=== PATIENT | female | born 1945 | race Caucasian/White ===

== ENCOUNTER → 2017-08-29 | Outpatient (CLI) | payer MEDICARE ==
--- NOTE | 2017-09-02 11:33 | MM ---
Reason for exam: screening (asymptomatic). Last mammogram was performed 2 years and 5 months ago. History: Patient is postmenopausal and has history of other cancer at age 65. Taking estrogen for 23 years 6 months beginning at age 42. Physical Findings: A clinical breast exam by your physician is recommended on an annual basis and results should be correlated with mammographic findings. MG 3D Screening Mammo W/Cad Bilateral CC and MLO view(s) were taken. Prior study comparison: March 29, 2015, bilateral MG screening mammo w CAD. March 17, 2014, bilateral MG screening mammo w CAD. There are scattered fibroglandular densities. No significant changes when compared with prior studies. ASSESSMENT: Negative, BI-RAD 1 RECOMMENDATION: Routine screening mammogram of both breasts in 1 year.
== END | disposition home or self-care (01) ==
LOC: RADMAMWWP 09:57
PROVIDERS: ATTEND Family Medicine
DX: Z12.31 Encounter for screening mammogram for malignant neoplasm of breast (principal)
CPT/HCPCS: 77063; 77067

== ENCOUNTER 2017-09-16 20:43 | Emergency (ER) | payer MEDICARE ==
[2017-09-16 21:03] VITALS: RESP 18
[2017-09-16] MEDS ORDERED: cloNIDine HCL 0.2 MG TAB PO STA (21:29)
--- NOTE | 2017-09-16 21:34 | ED ---
General Adult HPI - General Chief complaint: Recheck/Abnormal Lab/Rx Stated complaint: High BP Time Seen by Provider: 09/16/17 21:16 Source: patient Mode of arrival: ambulatory Limitations: no limitations - History of Present Illness Initial comments: This patient is a 72-year-old woman who presents to be evaluated for blood pressure. The patient relates that she had been at [employer] this evening to deal with what sounds like a varicosity on the left leg that started bleeding. She states she is given a lidocaine injection and had some sutures that stop things, but that afterward they found her blood pressure was above 180 mmHg. the patient does note that she has been having hypertension over the past few weeks, and that in fact her primary physician had started her on Hyzaar, and she had taken the first dose of that today. I will questioned about symptoms, she states that she has been having some tightness across her chest over the past few days that she thought may be related to the blood pressure. She denies "chest pain." She is not having dyspnea, diaphoresis, nausea or vomiting , palpitations or syncope. She rates the tightness is mild. She has not noticed anything that seems to make it better or worse. -: days(s) Location: chest Consistency: constant Improves with: none Worsens with: none Associated Symptoms: chest pain Treatments Prior to Arrival: none - Related Data Home Medications Medication Instructions Recorded Confirmed Fluticasone/Salmeterol [Advair Hfa 2 puff INHALATION RT-BID 09/14/13 09/16/17 115-21 Mcg Inhaler] Levothyroxine Sodium [Synthroid] 137 mcg PO QAM 09/14/13 09/16/17 Montelukast [Singulair] 1 tab PO HS 09/14/13 09/16/17 cycloSPORINE [Restasis] 1 drop LEFT EYE BID 09/14/13 09/16/17 Cholecalciferol [Vitamin D3] 1,000 unit PO DAILY 09/16/17 09/16/17 Ciprofloxacin HCl [Cipro] 500 mg PO BID 09/16/17 09/16/17 Diphenox-Atrop 2.5-0.025 mg 2 tab PO TID PRN 09/16/17 09/16/17 [Lomotil] Losartan [Cozaar] 50 mg PO DAILY 09/16/17 09/16/17 Multivitamins, Thera [Multivitamin 1 tab PO DAILY 09/16/17 09/16/17 (formulary)] predniSONE 5 mg PO DAILY 09/16/17 09/16/17 traMADol HCL [Ultram] 50 mg PO Q4HR PRN 09/16/17 09/16/17 Allergies Allergy/AdvReac Type Severity Reaction Status Date / Time acetaminophen [From Vicodin] Allergy Anaphylaxis Verified 09/16/17 21:34 ciprofloxacin [From Cipro] Allergy Unknown Verified 09/16/17 21:34 hydrocodone bitartrate Allergy Anaphylaxis Verified 09/16/17 21:34 [From Vicodin] levofloxacin [From Levaquin] Allergy Unknown Verified 09/16/17 21:34 Review of Systems ROS Statement: Those systems with pertinent positive or pertinent negative responses have been documented in the HPI. ROS Other: All systems not noted in ROS Statement are negative. Constitutional: Denies: fever, chills Respiratory: Denies: cough, dyspnea Cardiovascular: Reports: as per HPI, chest pain. Denies: palpitations, dyspnea on exertion, orthopnea, edema, syncope Gastrointestinal: Denies: abdominal pain, nausea, vomiting Genitourinary: Denies: dysuria Musculoskeletal: Denies: back pain Skin: Denies: rash Neurological: Denies: headache, weakness, numbness Past Medical History Past Medical History: Asthma, COPD, Hyperlipidemia, Hypertension, Osteoarthritis (OA) Additional Past Medical History / Comment(s): HYPOTHYROID History of Any Multi-Drug Resistant Organisms: None Reported Past Surgical History: Appendectomy, Bladder Surgery, Hysterectomy, Orthopedic Surgery, Tonsillectomy Additional Past Surgical History / Comment(s): FACIAL SURGERY/RECONSTRUCTION POST INJURY. BILATERAL CATARACTS Past Anesthesia/Blood Transfusion Reactions: Postoperative Nausea & Vomiting ( PONV) Past Psychological History: No Psychological Hx Reported Smoking Status: Former smoker Past Alcohol Use History: Rare Past Drug Use History: None Reported General Exam Limitations: no limitations General appearance: alert, in no apparent distress Head exam: Present: atraumatic, normocephalic Eye exam: Present: normal appearance. Absent: scleral icterus, conjunctival injection ENT exam: Present: normal oropharynx Neck exam: Present: normal inspection Respiratory exam: Present: normal lung sounds bilaterally. Absent: respiratory distress, wheezes, rales, rhonchi, stridor Cardiovascular Exam: Present: regular rate, normal rhythm, normal heart sounds. Absent: systolic murmur, diastolic murmur, rubs, gallop GI/Abdominal exam: Present: soft. Absent: distended, tenderness, guarding, rebound, rigid Extremities exam: Present: normal inspection, normal capillary refill, other ( Patient has dressing to the lower left leg.). Absent: pedal edema, calf tenderness Back exam: Present: normal inspection Neurological exam: Present: alert Skin exam: Present: warm, dry, intact, normal color. Absent: rash Course Vital Signs 09/16/17 09/16/17 09/16/17 20:58 21:27 22:38 Temperature 97.6 F Pulse Rate 89 79 Respiratory 18 18 Rate Blood Pressure 176/84 229/98 230/96 O2 Sat by Pulse 94 L 98 Oximetry 09/16/17 22:56 Temperature Pulse Rate 70 Respiratory 18 Rate Blood Pressure 134/62 O2 Sat by Pulse 96 Oximetry EKG Findings - EKG Results: EKG: interpreted by ERMD, sinus rhythm (Rate approximately 88 bpm), normal axis , normal QRS, normal ST/T Medical Decision Making - Lab Data Result diagrams: 09/16/17 21:42 09/16/17 21:42 Lab Results 09/16/17 09/16/17 09/16/17 Range/Units 21:42 21:42 21:42 WBC 9.1 (3.8-10.6) k/uL RBC 4.72 (3.80-5.40) m/uL Hgb 14.4 (11.4-16.0) gm/dL Hct 43.6 (34.0-46.0) % MCV 92.2 (80.0-100.0) fL MCH 30.5 (25.0-35.0) pg MCHC 33.1 (31.0-37.0) g/dL RDW 13.1 (11.5-15.5) % Plt Count 261 (150-450) k/uL Neutrophils % 62 % Lymphocytes % 27 % Monocytes % 6 % Eosinophils % 5 % Basophils % 1 % Neutrophils # 5.6 (1.3-7.7) k/uL Lymphocytes # 2.4 (1.0-4.8) k/uL Monocytes # 0.5 (0-1.0) k/uL Eosinophils # 0.4 (0-0.7) k/uL Basophils # 0.0 (0-0.2) k/uL Sodium 139 (137-145) mmol/L Potassium 4.5 (3.5-5.1) mmol/L Chloride 100 (98-107) mmol/L Carbon Dioxide 26 (22-30) mmol/L Anion Gap 13 mmol/L BUN 14 (7-17) mg/dL Creatinine 0.45 L (0.52-1.04) mg/dL Est GFR (CKD-EPI)AfAm >90 (>60 ml/min/1.73 sqM) Est GFR (CKD-EPI)NonAf >90 (>60 ml/min/1.73 sqM) Glucose 94 (74-99) mg/dL Calcium 10.0 (8.4-10.2) mg/dL Urine Color Light Yellow Urine Appearance Clear (Clear) Urine pH 5.5 (5.0-8.0) Ur Specific [place] 1.006 (1.001-1.035) Urine Protein Negative (Negative) Urine Glucose (UA) Negative (Negative) Urine Ketones Negative (Negative) Urine Blood Negative (Negative) Urine Nitrite Negative (Negative) Urine Bilirubin Negative (Negative) Urine Urobilinogen <2.0 (<2.0) mg/dL Ur Leukocyte Esterase Negative (Negative) Disposition Clinical Impression: Hypertension Disposition: HOME SELF-CARE Condition: Good Instructions: Chronic Hypertension (ED) Is patient prescribed a controlled substance at d/c from ED?: No Referrals: Rinku Penaloza DO [Primary Care Provider] - 1-2 days
[2017-09-16 22:05] LABS: Appearance,Urine Clear (Clear); Basophils % (A) 1 %; Bilirubin,Urine Negative (Negative); Blood,Urine Negative (Negative); Color,Urine Light Yellow; Eosinophils # (A) 0.4 k/uL (0-0.7); Eosinophils % (A) 5 %; Glucose,Urine (UA) Negative (Negative); HCT 43.6 % (34.0-46.0); HGB 14.4 gm/dL (11.4-16.0); Ketones,Urine Negative (Negative); Leukocyte Esterase,Urine Negative (Negative); Lymphocytes # (A) 2.4 k/uL (1.0-4.8); Lymphocytes % (A) 27 %; MCH 30.5 pg (25.0-35.0); MCHC 33.1 g/dL (31.0-37.0); MCV 92.2 fL (80.0-100.0); Mean Platelet Volume 7.3; Monocytes # (A) 0.5 k/uL (0-1.0); Monocytes % (A) 6 %; Neutrophils # (A) 5.6 k/uL (1.3-7.7); Neutrophils % (A) 62 %; Nitrite,Urine Negative (Negative); PH, Urine 5.5 (5.0-8.0); Platelet Count 261 k/uL (150-450); Protein,Urine Negative (Negative); RBC 4.72 m/uL (3.80-5.40); RDW 13.1 % (11.5-15.5); Specific Gravity,Urine 1.006 (1.001-1.035); Urobilinogen,Urine <2.0 mg/dL (<2.0); WBC 9.1 k/uL (3.8-10.6)
[2017-09-16 22:15] LABS: Anion Gap 13 mmol/L; Blood Urea Nitrogen 14 mg/dL (7-17); Carbon Dioxide 26 mmol/L (22-30); Chloride 100 mmol/L (98-107); Glucose 94 mg/dL (74-99); Potassium 4.5 mmol/L (3.5-5.1); Sodium 139 mmol/L (137-145)
[2017-09-16] MEDS ORDERED: LORazepam 2 MG/ML INJ IV STA (22:29)
[2017-09-16 22:57] VITALS: PULSE 70
[2017-09-16 23:27] VITALS: BP 134/68; TEMP 99
== END 2017-09-16 23:27 | disposition home or self-care (01) ==
LOC: EC 20:43
DX: I10 Essential (primary) hypertension (principal); R07.89 Other chest pain; J44.9 Chronic obstructive pulmonary disease, unspecified; E03.9 Hypothyroidism, unspecified; M19.90 Unspecified osteoarthritis, unspecified site; Z87.891 Personal history of nicotine dependence; Z79.51 Long term (current) use of inhaled steroids; Z79.52 Long term (current) use of systemic steroids; Z79.899 Other long term (current) drug therapy; Z88.1 Allergy status to other antibiotic agents; Z88.5 Allergy status to narcotic agent; Z88.8 Allergy status to other drugs, medicaments and biological substances
CPT/HCPCS: 36415; 93005; 80048; 85025; 81003; 99283; 96374; J2060

== ENCOUNTER → 2018-05-08 | Outpatient (CLI) | payer MEDICARE ==
[2018-05-08 10:41] LABS: HCT 42.4 % (34.0-46.0); HGB 13.4 gm/dL (11.4-16.0); MCH 29.4 pg (25.0-35.0); MCHC 31.5 g/dL (31.0-37.0); MCV 93.1 fL (80.0-100.0); Mean Platelet Volume 6.5; Platelet Count 275 k/uL (150-450); RBC 4.55 m/uL (3.80-5.40); RDW 13.1 % (11.5-15.5); WBC 7.2 k/uL (3.8-10.6)
[2018-05-08 10:48] LABS: Anion Gap 10 mmol/L; Blood Urea Nitrogen 15 mg/dL (7-17); Carbon Dioxide 24 mmol/L (22-30); Chloride 105 mmol/L (98-107); Potassium 4.1 mmol/L (3.5-5.1); Sodium 139 mmol/L (137-145)
== END | disposition home or self-care (01) ==
LOC: LABPAT 10:18
PROVIDERS: ATTEND Internal Medicine Interventional Cardiology
DX: Z01.812 Encounter for preprocedural laboratory examination (principal); R07.9 Chest pain, unspecified; E78.1 Pure hyperglyceridemia; I10 Essential (primary) hypertension
CPT/HCPCS: 80051; 82565; 84520; 85027

== ENCOUNTER 2018-05-15 10:53 | Day surgery (SDC) | payer MEDICARE ==
[2018-05-07 14:35] VITALS: BMI 32.4
[~2018-05-15 10:53] MED LIST: ALPRAZolam 0.25 MG TAB PO PRN; ALPRAZolam 0.5 MG TAB PO PRN; ASPIRIN 325 MG TAB PO STA; ATORVASTATIN 80 MG TAB PO STA; NITROGLYCERIN SL TABS 0.4 MG TAB SUBLINGUAL PRN; SODIUM CHLORIDE 0.9% 1,000 ML in EMPTY BAG 1 BAG IV ONE
[2018-05-15 11:18] VITALS: RESP 18; TEMP 97.7
[2018-05-15] MEDS ORDERED: VERAPAMIL 2.5 MG/ML 2 ML AMP ONE (11:49)
[2018-05-15] MEDS ORDERED: HEPARIN SODIUM 1,000 UN/ML (10ML VL) ONE (11:49)
[2018-05-15] MEDS ORDERED: LIDOCAINE 1% INJ 10MG/ML (20 ML MDV) ONE (11:49)
[2018-05-15] MEDS ORDERED: LIDOCAINE 1% (PF) 10MG/ML VIAL SQ ONE (12:11)
[2018-05-15] MEDS ORDERED: MIDAZOLAM 2 MG/2 ML VIAL IV ONE (12:12)
[2018-05-15] MEDS ORDERED: HEPARIN SODIUM 1,000 UN/ML (10ML VL) IV ONE (12:13)
[2018-05-15] MEDS: VERAPAMIL SYRINGE (5 MG/10 ML) INTRAARTER ONE ×2 (12:13→12:24)
[2018-05-15] MEDS ORDERED: IOPAMIDOL-370 125ML BTL INJ ONE (12:22)
[2018-05-15] MEDS ORDERED: RX INFO: IV CONTRAST WAS GIVEN 1 EACH MISC MISCELLANE PRN (12:29)
[2018-05-15] MEDS ORDERED: SODIUM CHLORIDE 0.9% 1,000 ML IV SCH (12:30)
--- NOTE | 2018-05-15 13:02 | CC ---
CARDIAC CATHETERIZATION REPORT DATE OF SERVICE: PERFORMING PHYSICIAN: Ramses Núñez MD, Supervisor Cereal. PROCEDURE PERFORMED: 1. Selective right and left coronary angiogram. 2. Left heart catheterization. INDICATION: This is a pleasant 73-year-old female patient with hypertension and dyslipidemia who was experiencing chest discomfort and underwent myocardial perfusion imaging stress test and that revealed anterior ischemia. Because of that, heart catheterization was advised. APPROACH: Right radial artery. COMPLICATION: None. LEVEL OF SEDATION: Moderate with sedation length of 15 minutes. PROCEDURE DESCRIPTION: After obtaining an informed consent, the patient was brought to the cardiac pathology laboratory technologist. The right radial artery was cannulated using micropuncture technique and a micropuncture wire passed easily, then I placed a 6-[place]uv[place] sheath in the right radial artery. After that, I did give the patient 2 mg of verapamil IA and 8000 units of heparin IV. Subsequently, I did selective right and left coronary angiogram using JR4 and JL3.5 catheters. The left heart catheterization was performed using 5-[place]uvian pigtail catheter. The procedure was completed without any complication. SELECTIVE CORONARY ANGIOGRAM: 1. The right coronary artery is a large caliber vessel and it is a dominant vessel. The RCA is chronically occluded with a long area of PROFILE SAW SETUP OPERATOR extends from the mid all the way to the distal. The RCA fills by collaterals from the left coronary system. It is heavily calcified as well. 2. The left main is angiographically normal. Distally has mild disease only. It bifurcates into the left circumflex and left anterior descending artery. 3. The left circumflex is a large caliber vessel. It is a nondominant vessel. The proximal circumflex appeared to have mild disease only and gives rise into first OM branch which appeared to have mild disease only. The mid circumflex has mild disease only and gives rise into second OM branch which is small caliber vessel. The circumflex distally appeared to be normal. 4. The LAD, the proximal LAD appeared to have mild disease only. It gives rise into a large diagonal branch which has mild disease only. The mid and distal LAD appears to be angiographically normal. HEMODYNAMICS: The left ventricular pressure was 12 mmHg without significant gradient across the aortic valve. CONCLUSION: 1. Calcified right and left coronary artery systems. 2. 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 3. Mild disease involving the left coronary artery system. Giving the stress test showing anterior ischemia, which is not in the territory of the RCA artery, I did recommend maximized medical treatment and follow up with the patient. The patient is going to be discharged home later on today. TYSON / RACH: [id number] /
--- NOTE | 2018-05-15 13:23 | LTR ---
May 15, 2018 Re: Amy Jose Dear Dr. Penaloza: Ms. Amy Garcia underwent a heart catheterization today and that revealed chronic total occlusion of the right coronary artery. I did recommend maximized medical treatment and follow up with the patient. I want to thank you for allowing us to participate in her care and please do not hesitate to call for question or concern. Sincerely, MD TYSON Marie / RACH: [id number] /
[2018-05-15 14:52] VITALS: BP 122/59; PULSE 79
== END 2018-05-15 16:30 | disposition home or self-care (01) ==
LOC: CATHCVL 10:53
PROVIDERS: ATTEND Internal Medicine Interventional Cardiology
DX: I25.10 Atherosclerotic heart disease of native coronary artery without angina pectoris (principal); I25.84 Coronary atherosclerosis due to calcified coronary lesion; I25.82 Chronic total occlusion of coronary artery; I10 Essential (primary) hypertension; E78.5 Hyperlipidemia, unspecified; Z82.49 Family history of ischemic heart disease and other diseases of the circulatory system; Z72.0 Tobacco use; Z79.82 Long term (current) use of aspirin; Z79.890 Hormone replacement therapy; Z79.899 Other long term (current) drug therapy; Z88.5 Allergy status to narcotic agent
CPT/HCPCS: 93458; C1769; C1894; J2250; J1644; J2001; Q9967

== ENCOUNTER → 2018-05-20 | Outpatient (CLI) | payer MEDICARE ==
[2018-05-20 10:21] LABS: HCT 41.8 % (34.0-46.0); HGB 13.6 gm/dL (11.4-16.0); MCH 30.2 pg (25.0-35.0); MCHC 32.6 g/dL (31.0-37.0); MCV 92.6 fL (80.0-100.0); Mean Platelet Volume 6.4; Platelet Count 277 k/uL (150-450); RBC 4.52 m/uL (3.80-5.40); RDW 13.3 % (11.5-15.5); WBC 7.3 k/uL (3.8-10.6)
[2018-05-20 10:28] LABS: INR 0.9 (<1.2); Prothrombin Time 9.5 sec (9.0-12.0)
[2018-05-20 10:31] LABS: Appearance,Urine Clear (Clear); Bilirubin,Urine Negative (Negative); Blood,Urine Negative (Negative); Color,Urine Colorless; Glucose,Urine (UA) Negative (Negative); Ketones,Urine Negative (Negative); Leukocyte Esterase,Urine Negative (Negative); Nitrite,Urine Negative (Negative); PH, Urine 5.5 (5.0-8.0); Protein,Urine Negative (Negative); Specific Gravity,Urine 1.004 (1.001-1.035); Urobilinogen,Urine <2.0 mg/dL (<2.0)
[2018-05-20 10:50] LABS: ALT 48 U/L (9-52); AST 28 U/L (14-36); Albumin 4.2 g/dL (3.5-5.0); Alkaline Phosphatase 60 U/L (38-126); Anion Gap 9 mmol/L; Blood Urea Nitrogen 15 mg/dL (7-17); Calcium 10.1 mg/dL (8.4-10.2); Carbon Dioxide 29 mmol/L (22-30); Chloride 100 mmol/L (98-107); Glucose 98 mg/dL (74-99); Potassium 4.9 mmol/L (3.5-5.1); Sodium 138 mmol/L (137-145); Total Bilirubin 0.5 mg/dL (0.2-1.3); Total Protein 6.9 g/dL (6.3-8.2)
== END ==
LOC: LABPAT 09:31
PROVIDERS: ATTEND Orthopaedic Surgery
DX: Z01.812 Encounter for preprocedural laboratory examination (principal); Z51.81 Encounter for therapeutic drug level monitoring; Z79.01 Long term (current) use of anticoagulants
CPT/HCPCS: 36415; 80053; 81003; 85027; 85610; 85730; 87070

== ENCOUNTER → 2018-05-26 | Outpatient (CLI) | payer MEDICARE ==
[2018-05-26 11:52] LABS: Basophils # (A) 0.1 k/uL (0-0.2); Basophils % (A) 1 %; Eosinophils # (A) 0.4 k/uL (0-0.7); Eosinophils % (A) 5 %; HCT 45.1 % (34.0-46.0); HGB 14.4 gm/dL (11.4-16.0); Lymphocytes # (A) 1.7 k/uL (1.0-4.8); Lymphocytes % (A) 21 %; MCH 29.6 pg (25.0-35.0); MCHC 31.8 g/dL (31.0-37.0); MCV 93.2 fL (80.0-100.0); Mean Platelet Volume 6.6; Monocytes # (A) 0.3 k/uL (0-1.0); Monocytes % (A) 4 %; Neutrophils # (A) 5.4 k/uL (1.3-7.7); Neutrophils % (A) 68 %; Platelet Count 303 k/uL (150-450); RBC 4.84 m/uL (3.80-5.40); RDW 13.2 % (11.5-15.5)
[2018-05-26 16:38] LABS: Albumin 4.8 g/dL (3.80-4.90); Albumin/Globulin Ratio 2.82 (1.20-2.10); Anion Gap 12.4 mmol/L (4.00-12.00); Calcium 9.7 mg/dL (8.7-10.3); Carbon Dioxide 26.6 mmol/L (21.6-31.8); Globulin 1.7 g/dL (1.6-3.3); Potassium 4.2 mmol/L (3.5-5.5); Total Bilirubin 0.4 mg/dL (0.3-1.2); Total Protein 6.5 g/dL (6.2-8.2)
[2018-05-26 16:49] LABS: Gliadin AB IgA, Unit <0.2 U/mL
== END | disposition home or self-care (01) ==
LOC: LABWHC1 10:48
PROVIDERS: ATTEND Physician Assistant
DX: R19.7 Diarrhea, unspecified (principal)
CPT/HCPCS: 36415; 80053; 83516; 85025

== ENCOUNTER 2018-06-28 11:34 | Observation (INO) | payer MEDICARE ==
[2018-06-28] MEDS ORDERED: ASPIRIN 81 MG PO STA (11:50)
[2018-06-28] MEDS ORDERED: NITROGLYCERIN OINT 1 INCH/GM PACKET TOPICAL STA (11:50)
--- NOTE | 2018-06-28 11:53 | ED ---
General Adult HPI - General Chief complaint: Chest Pain Stated complaint: chest pain Time Seen by Provider: 06/28/18 11:40 Source: patient, RN notes reviewed Mode of arrival: wheelchair Limitations: no limitations - History of Present Illness Initial comments: Patient is a pleasant 73-year-old female presenting to the emergency Department with complaints of chest discomfort. Onset was around 10 this morning. Patient was not exerting herself. Discomfort felt like pressure. Discomfort is now mild. Patient did have some associated dyspnea at that time however that has resolved. No associated nausea or diaphoresis. No history of similar symptoms previously. Patient took 2 nitro glycerin with some improvement of symptoms. No radiation of pain. Patient did have a computed tomography scan showing that there is disease in her coronary arteries. - Related Data Home Medications Medication Instructions Recorded Confirmed Fluticasone/Salmeterol [Advair Hfa 2 puff INHALATION BID 09/14/13 06/28/18 115-21 Mcg Inhaler] Levothyroxine Sodium [Synthroid] 137 mcg PO DAILY 09/14/13 06/28/18 Montelukast [Singulair] 10 mg PO HS 09/14/13 06/28/18 cycloSPORINE [Restasis] 1 drop LEFT EYE BID 09/14/13 06/28/18 Cholecalciferol [Vitamin D3] 1,000 unit PO DAILY 09/16/17 06/28/18 Losartan [Cozaar] 50 mg PO BID 09/16/17 06/28/18 Multivitamins, Thera [Multivitamin 1 tab PO DAILY 09/16/17 06/28/18 (formulary)] ALPRAZolam [Xanax] 0.25 mg PO Q8H PRN 05/07/18 06/28/18 Albuterol Inhaler [Ventolin Hfa 1 - 2 puff INHALATION Q6HR PRN 05/07/18 06/28/18 Inhaler] Aspirin [Adult Low Dose Aspirin EC] 81 mg PO DAILY 05/07/18 06/28/18 Atorvastatin [Lipitor] 10 mg PO HS 05/07/18 06/28/18 Nitroglycerin Sl Tabs [Nitrostat] 0.4 mg SUBLINGUAL Q5M PRN 05/07/18 06/28/18 Dicyclomine [Bentyl] 20 mg PO QID PRN 06/28/18 06/28/18 Isosorbide Mononitrate ER [Imdur] 30 mg PO DAILY 06/28/18 06/28/18 Allergies Allergy/AdvReac Type Severity Reaction Status Date / Time acetaminophen [From Vicodin] Allergy Anaphylaxis Verified 06/28/18 13:01 ciprofloxacin [From Cipro] Allergy Unknown Verified 06/28/18 13:01 hydrocodone bitartrate Allergy Anaphylaxis Verified 06/28/18 13:01 [From Vicodin] levofloxacin [From Levaquin] Allergy Unknown Verified 06/28/18 13:01 Review of Systems ROS Statement: Those systems with pertinent positive or pertinent negative responses have been documented in the HPI. ROS Other: All systems not noted in ROS Statement are negative. Constitutional: Denies: fever Eyes: Denies: eye pain ENT: Denies: ear pain Respiratory: Denies: cough Cardiovascular: Reports: as per HPI, chest pain Endocrine: Denies: fatigue Gastrointestinal: Denies: abdominal pain Genitourinary: Denies: dysuria Musculoskeletal: Denies: back pain Skin: Denies: rash Neurological: Denies: weakness Past Medical History Past Medical History: Asthma, Cancer, Chest Pain / Angina, COPD, Hyperlipidemia , Hypertension, Osteoarthritis (OA), Thyroid Disorder Additional Past Medical History / Comment(s): HYPOTHYROID. Hx skin cancer on nose. IBS. History of Any Multi-Drug Resistant Organisms: None Reported Past Surgical History: Appendectomy, Bladder Surgery, Hysterectomy, Joint Replacement, Orthopedic Surgery, Tonsillectomy Additional Past Surgical History / Comment(s): FACIAL SURGERY/RECONSTRUCTION POST INJURY. BILATERAL CATARACTS. Left shoulder replacement, bilateral shoulder surgery. Skin cancer on nose removed. Past Anesthesia/Blood Transfusion Reactions: Postoperative Nausea & Vomiting ( PONV) Past Psychological History: No Psychological Hx Reported Past Alcohol Use History: Rare - Past Family History Mother Family Medical History: No Reported History General Exam Limitations: no limitations General appearance: alert, in no apparent distress Head exam: Present: atraumatic Eye exam: Present: normal appearance, PERRL ENT exam: Present: normal oropharynx Neck exam: Present: normal inspection Respiratory exam: Present: normal lung sounds bilaterally. Absent: chest wall tenderness Cardiovascular Exam: Present: regular rate, normal rhythm Expanded Peripheral pulses: 2+: Radial (R), Radial (L), Dorsalis Pedis (R), Dorsalis Pedis (L) GI/Abdominal exam: Present: soft. Absent: distended, tenderness Extremities exam: Present: normal inspection. Absent: pedal edema, calf tenderness Neurological exam: Present: alert Psychiatric exam: Present: normal affect, normal mood Skin exam: Present: normal color Course Vital Signs 06/28/18 11:37 Temperature 98.1 F Pulse Rate 88 Respiratory 16 Rate Blood Pressure 205/72 O2 Sat by Pulse 99 Oximetry EKG Findings - EKG Comments: EKG Findings:: Normal sinus rhythm 79. MN 176. QRS 82. QT 392. QTC 449. Normal axis. Normal QRS. No acute ST change. Medical Decision Making - Medical Decision Making Patient reevaluated and resting comfortably in bed. Patient and family updated on results and plan. Patient still has some discomfort. Case was discussed in detail with Dr. russo, covering for Dr. Penaloza, who will admit. - Lab Data Result diagrams: 06/28/18 12:11 06/28/18 12:11 Lab Results 06/28/18 06/28/18 06/28/18 Range/Units 12:11 12:11 12:11 WBC 12.7 H (3.8-10.6) k/uL RBC 4.44 (3.80-5.40) m/uL Hgb 13.6 (11.4-16.0) gm/dL Hct 41.0 (34.0-46.0) % MCV 92.2 (80.0-100.0) fL MCH 30.6 (25.0-35.0) pg MCHC 33.1 (31.0-37.0) g/dL RDW 13.8 (11.5-15.5) % Plt Count 252 (150-450) k/uL Neutrophils % 84 % Lymphocytes % 9 % Monocytes % 3 % Eosinophils % 3 % Basophils % 0 % Neutrophils # 10.7 H (1.3-7.7) k/uL Lymphocytes # 1.2 (1.0-4.8) k/uL Monocytes # 0.4 (0-1.0) k/uL Eosinophils # 0.4 (0-0.7) k/uL Basophils # 0.1 (0-0.2) k/uL PT (9.0-12.0) sec INR (<1.2) APTT (22.0-30.0) sec Sodium 138 (137-145) mmol/L Potassium 4.3 (3.5-5.1) mmol/L Chloride 105 (98-107) mmol/L Carbon Dioxide 25 (22-30) mmol/L Anion Gap 8 mmol/L BUN 20 H (7-17) mg/dL Creatinine 0.61 (0.52-1.04) mg/dL Est GFR (CKD-EPI)AfAm >90 (>60 ml/min/1.73 sqM) Est GFR (CKD-EPI)NonAf >90 (>60 ml/min/1.73 sqM) Glucose 107 H (74-99) mg/dL Calcium 9.5 (8.4-10.2) mg/dL Magnesium 2.0 (1.6-2.3) mg/dL Total Bilirubin 0.5 (0.2-1.3) mg/dL AST 28 (14-36) U/L ALT 54 H (9-52) U/L Alkaline Phosphatase 63 (38-126) U/L Total Creatine Kinase 62 (30-135) U/L CK-MB (CK-2) 2.3 (0.0-2.4) ng/mL CK-MB (CK-2) Rel Index 3.7 Troponin I <0.012 (0.000-0.034) ng/mL Total Protein 6.6 (6.3-8.2) g/dL Albumin 4.0 (3.5-5.0) g/dL 06/28/18 Range/Units 12:11 WBC (3.8-10.6) k/uL RBC (3.80-5.40) m/uL Hgb (11.4-16.0) gm/dL Hct (34.0-46.0) % MCV (80.0-100.0) fL MCH (25.0-35.0) pg MCHC (31.0-37.0) g/dL RDW (11.5-15.5) % Plt Count (150-450) k/uL Neutrophils % % Lymphocytes % % Monocytes % % Eosinophils % % Basophils % % Neutrophils # (1.3-7.7) k/uL Lymphocytes # (1.0-4.8) k/uL Monocytes # (0-1.0) k/uL Eosinophils # (0-0.7) k/uL Basophils # (0-0.2) k/uL PT 10.1 (9.0-12.0) sec INR 0.9 (<1.2) APTT 22.7 (22.0-30.0) sec Sodium (137-145) mmol/L Potassium (3.5-5.1) mmol/L Chloride (98-107) mmol/L Carbon Dioxide (22-30) mmol/L Anion Gap mmol/L BUN (7-17) mg/dL Creatinine (0.52-1.04) mg/dL Est GFR (CKD-EPI)AfAm (>60 ml/min/1.73 sqM) Est GFR (CKD-EPI)NonAf (>60 ml/min/1.73 sqM) Glucose (74-99) mg/dL Calcium (8.4-10.2) mg/dL Magnesium (1.6-2.3) mg/dL Total Bilirubin (0.2-1.3) mg/dL AST (14-36) U/L ALT (9-52) U/L Alkaline Phosphatase (38-126) U/L Total Creatine Kinase (30-135) U/L CK-MB (CK-2) (0.0-2.4) ng/mL CK-MB (CK-2) Rel Index Troponin I (0.000-0.034) ng/mL Total Protein (6.3-8.2) g/dL Albumin (3.5-5.0) g/dL - Radiology Data Radiology results: image reviewed (Chest x-ray showed underlying COPD, no acute process) Disposition Clinical Impression: Chest pain Disposition: ADMITTED IP TO THIS HOSP Is patient prescribed a controlled substance at d/c from ED?: No Referrals: Rinku Penaloza DO [Primary Care Provider] - 1-2 days Decision Time: 14:01
[2018-06-28 12:22] LABS: Basophils # (A) 0.1 k/uL (0-0.2); Basophils % (A) 0 %; Eosinophils # (A) 0.4 k/uL (0-0.7); Eosinophils % (A) 3 %; HGB 13.6 gm/dL (11.4-16.0); Lymphocytes # (A) 1.2 k/uL (1.0-4.8); Lymphocytes % (A) 9 %; MCH 30.6 pg (25.0-35.0); MCHC 33.1 g/dL (31.0-37.0); MCV 92.2 fL (80.0-100.0); Mean Platelet Volume 6.6; Monocytes # (A) 0.4 k/uL (0-1.0); Monocytes % (A) 3 %; Neutrophils # (A) 10.7 k/uL (1.3-7.7); Neutrophils % (A) 84 %; Platelet Count 252 k/uL (150-450); RBC 4.44 m/uL (3.80-5.40); RDW 13.8 % (11.5-15.5); WBC 12.7 k/uL (3.8-10.6)
[2018-06-28 12:33] LABS: ALT 54 U/L (9-52); AST 28 U/L (14-36); Alkaline Phosphatase 63 U/L (38-126); Anion Gap 8 mmol/L; Blood Urea Nitrogen 20 mg/dL (7-17); Calcium 9.5 mg/dL (8.4-10.2); Carbon Dioxide 25 mmol/L (22-30); Chloride 105 mmol/L (98-107); Glucose 107 mg/dL (74-99); Potassium 4.3 mmol/L (3.5-5.1); Sodium 138 mmol/L (137-145); Total Bilirubin 0.5 mg/dL (0.2-1.3); Total Protein 6.6 g/dL (6.3-8.2)
[2018-06-28 12:34] LABS: INR 0.9 (<1.2); Partial Thromboplastin Time 22.7 sec (22.0-30.0); Prothrombin Time 10.1 sec (9.0-12.0)
[2018-06-28 12:51] LABS: Creatine Kinase 62 U/L (30-135)
[2018-06-28 13:03] LABS: Creatine Kinase MB 2.3 ng/mL (0.0-2.4); Troponin I <0.012 ng/mL (0.000-0.034)
--- NOTE | 2018-06-28 13:14 | XR ---
EXAMINATION TYPE: XR chest 2V DATE OF EXAM: 06/28/2018 COMPARISON: 06/16/2018 HISTORY: 73-year-old female with chest pain TECHNIQUE: PA and lateral views FINDINGS: Partially visualized traversing left total shoulder arthroplasty. Heart normal size. Aorta within nor mal limits. Mild interstitial prominence. Mild hyperinflation. No consolidation or pleural effusion. IMPRESSION: Correlate for underlying COPD. No acute cardiopulmonary process.
[2018-06-28] MEDS ORDERED: NITROGLYCERIN SL TABS 0.4 MG TAB SUBLINGUAL PRN (13:57)
[2018-06-28 19:20] LABS: Creatine Kinase 98 U/L (30-135)
[2018-06-28] MEDS ORDERED: ALPRAZOLAM 0.25 MG PO PRN (19:22)
[2018-06-28 19:32] LABS: Creatine Kinase MB 1.8 ng/mL (0.0-2.4); Troponin I <0.012 ng/mL (0.000-0.034)
[2018-06-28] MEDS ORDERED: LIPITOR 10MG PO SCH (21:00)
[2018-06-28] MEDS ORDERED: MONTELUKAST 10 MG PO SCH (21:00)
[2018-06-29 01:50] LABS: Creatine Kinase 59 U/L (30-135)
[2018-06-29 02:03] LABS: Creatine Kinase MB 1.9 ng/mL (0.0-2.4); Troponin I <0.012 ng/mL (0.000-0.034)
[2018-06-29 03:14] LABS: Cholesterol 191 mg/dL (<200); HDL Cholesterol 77 mg/dL (40-60); LDL Cholesterol,Calculated 87 mg/dL (0-99); Triglycerides 135 mg/dL (<150)
[2018-06-29] MEDS ORDERED: SYNTHROID 137 MCG PO SCH (06:30)
[2018-06-29] MEDS: NITROGLYCERIN OINT 1 INCH/GM PACKET TOPICAL SCH ×2 (07:00→07:51)
[2018-06-29] MEDS: COZAAR 50 MG PO SCH ×2 (07:50→08:21)
[2018-06-29] MEDS ORDERED: ASPIRIN 325 MG TAB PO SCH (09:00)
[2018-06-29] MEDS ORDERED: ISOSORBIDE MONONITRATE ER 30 MG TAB.ER.24H PO SCH (09:00)
[2018-06-29] MEDS ORDERED: ISOSORBIDE MONONITRATE ER 60 MG TAB.ER.24H PO SCH (09:15)
[2018-06-29] MEDS ORDERED: RANOLAZINE 500 MG TAB.ER.12H PO SCH (09:30)
[2018-06-29] MEDS ORDERED: METOPROLOL TARTRATE 25 MG TAB PO SCH (09:45)
[2018-06-29 10:32] VITALS: RESP 18
[2018-06-29 10:40] VITALS: BMI 32.8
--- NOTE | 2018-06-29 10:55 | P.CRDCN ---
History of Present Illness History of present illness: This is a pleasant 73-year-old female past medical history significant for coronary artery disease, hypertension, dyslipidemia, COPD and hypothyroidism. She follows in the office with Dr. Núñez. She recently underwent cardiac catheterization May 15 revealing a calcified right and left coronary artery system, chronic total occlusion of the RCA with a long area of occlusion from the mid to distal region, mild disease involving the left coronary system. At that time maximum medical therapy was recommended. She states yesterday she woke up in the morning took a shower walked out into the kitchen and sat down. As soon as she states on she started feeling a sharp pain in the midsternal region with radiation underneath the right breast. She took one sublingual nitroglycerin and achieved no relief. 5 minutes later she took a second sublingual nitroglycerin which did seem to take the edge off of her pain but she still had a dull ongoing ache in the midsternal region. She denies associated shortness of breath, dizziness, palpitations, nausea, vomiting or diaphoresis. Her pain has since subsided since admission. She is currently chest pain-free. She states she was recently diagnosed with pneumonia last week and is currently taking antibiotics. EKG reveals sinus mechanism with no acute ST or T wave abnormalities noted. Chest x-ray is negative for an acute cardiopulmonary process. Laboratory data reviewed, WBC 12.7, hemoglobin 13.6, platelets 252, sodium 138, potassium 4.3, creatinine 0.61, magnesium 2.0, cardiac enzymes negative 3, LDL 87 HDL 77. Current cardiac medications include Imdur 30 mg daily, losartan 50 mg twice a day, aspirin 81 mg daily and atorvastatin 10 mg daily. At the time of my exam: CONSTITUTIONAL: Denies fever. Denies chills. EYES: Denies blurred vision. Denies vision changes. Denies eye pain. EARS, NOSE, MOUTH & THROAT: Denies headache. Denies sore throat. Denies ear pain. CARDIOVASCULAR: Denies chest pain. Denies shortness of breath. Denies orthopnea. Denies PND. Denies palpitations. RESPIRATORY: Denies cough. GASTROINTESTINAL: Denies abdominal pain. Denies diarrhea. Denies constipation. Denies nausea. Denies vomiting. MUSCULOSKELETAL: Denies myalgias. INTEGUMENTARY: Denies pruitis. Denies rash. NEUROLOGIC: Denies numbness. Denies tingling. Denies weakness. PSYCHIATRIC: Denies anxiety. Denies depression. ENDOCRINE: Denies fatigue. Denies weight change. Denies polydipsia. Denies polyurina. GENITOURINARY: Denies burning, hematuria or urgency with micturation. HEMATOLOGIC: Denies history of anemia. Denies bleeding. Blood pressure 140/76 heart rate 74 afebrile maintaining oxygen saturation on room air GENERAL: This is a 73-year-old female in no apparent distress at the time of my examination. HEENT: Head is atraumatic, normocephalic. Pupils are equal, round. Sclerae anicteric. Conjunctivae are clear. Mucous membranes of the mouth are moist. Neck is supple. There is no jugular venous distention. No carotid bruit is heard. LUNGS: Clear to auscultation no wheezes, rales or rhonchi. No chest wall tenderness is noted on palpation or with deep breathing. HEART: Regular rate and rhythm without murmurs, rubs or gallops. S1 and S2 heard. ABDOMEN: Soft, nontender. Bowel sounds are heard. No organomegaly noted. EXTREMITIES: No evidence of peripheral edema and no calf tenderness noted. VASCULAR: Radial and dorsalis pedis pulses palpated, no evidence of clubbing. NEUROLOGIC: Patient is awake, alert and oriented x3. ASSESSMENT Chest pain at rest, suggestive of possible stable angina. History of coronary artery disease, recent catheterization indicates a chronic total occlusion of the RCA not in the territory of ischemia noted on stress test. Maximum medical therapy recommended. Hypertension Dyslipidemia, target LDL less than 70. COPD PLAN Maximize medical therapy by increase imdur to 60 mg daily, adding on ranexa 500 mg BID and lopressor 25 mg BID. Will also increase her atorvastatin to 20 mg daily to bring her LDL down below 70. Increase activity and ambulation in the halls. Assess for exertional chest pain. If she remains chest pain free she may be discharged home. Follow up with Dr. Núñez in the office in 2 weeks. Thank you kindly for this consultation. Nurse Practitioner note has been reviewed, I agree with a documented findings and plan of care. Patient was seen and examined. Past Medical History Past Medical History: Asthma, Cancer, Chest Pain / Angina, COPD, Hyperlipidemia , Hypertension, Osteoarthritis (OA), Thyroid Disorder Additional Past Medical History / Comment(s): HYPOTHYROID. Hx skin cancer on nose. IBS. History of Any Multi-Drug Resistant Organisms: None Reported Past Surgical History: Appendectomy, Bladder Surgery, Hysterectomy, Joint Replacement, Orthopedic Surgery, Tonsillectomy Additional Past Surgical History / Comment(s): FACIAL SURGERY/RECONSTRUCTION POST INJURY. BILATERAL CATARACTS. Left shoulder replacement, bilateral shoulder surgery. Skin cancer on nose removed. Past Anesthesia/Blood Transfusion Reactions: Postoperative Nausea & Vomiting ( PONV) Past Psychological History: No Psychological Hx Reported Past Alcohol Use History: Rare - Past Family History Mother Family Medical History: No Reported History Father Family Medical History: Liver Disease Additional Family Medical History / Comment(s): Father was an alcoholic. He had liver cirrhosis. Medications and Allergies Home Medications Medication Instructions Recorded Confirmed Type Fluticasone/Salmeterol [Advair Hfa 2 puff INHALATION BID 09/14/13 06/28/18 History 115-21 Mcg Inhaler] Levothyroxine Sodium [Synthroid] 137 mcg PO DAILY 09/14/13 06/28/18 History Montelukast [Singulair] 10 mg PO HS 09/14/13 06/28/18 History cycloSPORINE [Restasis] 1 drop LEFT EYE BID 09/14/13 06/28/18 History Cholecalciferol [Vitamin D3] 1,000 unit PO DAILY 09/16/17 06/28/18 History Losartan [Cozaar] 50 mg PO BID 09/16/17 06/28/18 History Multivitamins, Thera [Multivitamin 1 tab PO DAILY 09/16/17 06/28/18 History (formulary)] ALPRAZolam [Xanax] 0.25 mg PO Q8H PRN 05/07/18 06/28/18 History Albuterol Inhaler [Ventolin Hfa 1 - 2 puff INHALATION Q6HR PRN 05/07/18 History Inhaler] Aspirin [Adult Low Dose Aspirin EC] 81 mg PO DAILY 05/07/18 06/28/18 History Atorvastatin [Lipitor] 10 mg PO HS 05/07/18 06/28/18 History Nitroglycerin Sl Tabs [Nitrostat] 0.4 mg SUBLINGUAL Q5M PRN 05/07/18 06/28/18 History Dicyclomine [Bentyl] 20 mg PO QID PRN 06/28/18 06/28/18 History Isosorbide Mononitrate ER [Imdur] 30 mg PO DAILY 06/28/18 06/28/18 History Allergies Allergy/AdvReac Type Severity Reaction Status Date / Time acetaminophen [From Vicodin] Allergy Anaphylaxis Verified 06/28/18 13:01 ciprofloxacin [From Cipro] Allergy Unknown Verified 06/28/18 13:01 hydrocodone bitartrate Allergy Anaphylaxis Verified 06/28/18 13:01 [From Vicodin] levofloxacin [From Levaquin] Allergy Unknown Verified 06/28/18 13:01 Physical Exam Vitals: Vital Signs Temp Pulse Resp BP Pulse Ox 06/29/18 06:30 74 14 140/76 98 06/29/18 06:00 68 16 137/68 96 06/29/18 03:00 76 18 132/51 94 L 06/29/18 02:30 80 18 133/54 06/29/18 02:00 77 18 136/52 92 L 06/29/18 01:30 77 18 147/60 93 L 06/29/18 01:00 79 16 161/58 92 L 06/29/18 00:30 79 16 150/65 93 L 06/28/18 23:30 75 H 136/58 88 L 06/28/18 23:00 78 16 131/59 94 L 06/28/18 22:00 86 16 121/61 92 L 06/28/18 21:00 73 20 134/56 92 L 06/28/18 20:00 78 18 174/81 94 L 06/28/18 19:30 106 H 20 158/75 96 06/28/18 19:00 86 20 147/68 96 06/28/18 18:30 87 22 151/61 06/28/18 17:30 75 18 141/60 92 L 06/28/18 17:00 79 18 136/59 94 L 06/28/18 16:30 80 14 152/68 95 06/28/18 16:00 78 27 H 140/61 95 06/28/18 15:30 77 17 138/67 96 06/28/18 15:00 79 11 L 137/71 94 L 06/28/18 14:30 80 20 160/73 95 06/28/18 14:00 81 14 164/82 93 L 06/28/18 13:30 75 18 165/69 94 L 06/28/18 13:00 77 11 L 176/65 93 L 06/28/18 12:30 82 16 152/74 97 06/28/18 12:04 26 H 06/28/18 11:37 98.1 F 88 16 205/72 99 Results 06/28/18 12:11 06/28/18 12:11 Cardiac Enzymes 06/28/18 06/28/18 06/28/18 Range/Units 12:11 12:11 18:42 AST 28 (14-36) U/L CK-MB (CK-2) 2.3 1.8 (0.0-2.4) ng/mL Troponin I <0.012 <0.012 (0.000-0.034) ng/mL 06/29/18 Range/Units 00:32 AST (14-36) U/L CK-MB (CK-2) 1.9 (0.0-2.4) ng/mL Troponin I <0.012 (0.000-0.034) ng/mL Coagulation 06/28/18 Range/Units 12:11 PT 10.1 (9.0-12.0) sec APTT 22.7 (22.0-30.0) sec Lipids 06/28/18 Range/Units 12:11 Triglycerides 135 (<150) mg/dL Cholesterol 191 (<200) mg/dL HDL Cholesterol 77 H (40-60) mg/dL CBC 06/28/18 Range/Units 12:11 WBC 12.7 H (3.8-10.6) k/uL RBC 4.44 (3.80-5.40) m/uL Hgb 13.6 (11.4-16.0) gm/dL Hct 41.0 (34.0-46.0) % Plt Count 252 (150-450) k/uL Comprehensive Metabolic Panel 06/28/18 Range/Units 12:11 Sodium 138 (137-145) mmol/L Potassium 4.3 (3.5-5.1) mmol/L Chloride 105 (98-107) mmol/L Carbon Dioxide 25 (22-30) mmol/L BUN 20 H (7-17) mg/dL Creatinine 0.61 (0.52-1.04) mg/dL Glucose 107 H (74-99) mg/dL Calcium 9.5 (8.4-10.2) mg/dL AST 28 (14-36) U/L ALT 54 H (9-52) U/L Alkaline Phosphatase 63 (38-126) U/L Total Protein 6.6 (6.3-8.2) g/dL Albumin 4.0 (3.5-5.0) g/dL Current Medications Generic Name Dose Route Start Last Admin Trade Name Freq PRN Reason Stop Dose Admin Aspirin 325 mg 06/29/18 09:00 06/29/18 08:21 Aspirin PO 325 mg DAILY RAPHAEL Administration Nitroglycerin 1 inch 06/28/18 18:00 06/29/18 07:51 Nitro-Bid Oint TOPICAL Not Given Q6HR [facility] Nitroglycerin 0.4 mg 06/28/18 13:57 Nitrostat SUBLINGUAL Q5M PRN Chest Pain Non-Formulary Medication 0.25 mg 06/28/18 19:22 Alprazolam [Xanax] PO Q8H PRN Anxiety Lipitor 10mg 10 mg 06/28/18 21:00 06/29/18 07:50 PO Not Given HS RAPHAEL Synthroid 137 Mcg 137 mcg 06/29/18 06:30 06/29/18 08:21 PO 137 mcg DAILY@0630 RAPHAEL Administration Cozaar 50mg 50 mg 06/28/18 21:00 06/29/18 08:21 PO 50 mg BID RAPHAEL Administration Montelust 10mg 10 mg 06/28/18 21:00 06/29/18 07:51 PO Not Given HS RAPHAEL Sodium Chloride 10 ml 06/28/18 21:00 06/29/18 08:21 Saline Flush IV 10 ml BID RAPHAEL Administration 06/28/18 12:11 06/28/18 12:11
[2018-06-29 12:55] VITALS: TEMP 98.1
[2018-06-29 15:24] VITALS: BP 134/72; PULSE 74
[2018-06-29] MEDS ORDERED: ATORVASTATIN 20 MG TAB PO SCH (21:00)
--- NOTE | 2018-06-29 22:01 | P.HPIM ---
History of Present Illness H&P Date: 06/29/18 Chief Complaint: Chest pressure Patient is a 73-year-old female with a known history of hypertension, hyperlipidemia, hypothyroidism and history of skin cancer and nonobstructive coronary artery disease who follows with Dr. Bower as an outpatient came to the hospital with complaints of sharp midsternal chest pain radiating under the right breast. Patient states that she woke up in the morning yesterday and took a shower and walked out into the kitchen and sat down. She started feeling chest pain at the time. Patient took sublingual nitroglycerin without much relief. Denied any associated short of breath. No headache or dizziness or lightheadedness. No nausea vomiting or diaphoresis. Patient came to the hospital for further evaluation. Denied any cough or sputum production. Patient was recently diagnosed with pneumonia last week and is currently taking antibiotics at home. Chest x-ray negative for any cardiopulmonary process EKG showed sinus rhythm with no acute ST-T wave changes. Troponin 3 negative LDL 87 Review of Systems Constitutional: Patient denies any fever or chills . No generalized weakness or weight loss. Abdomen: Patient denied nausea vomiting and diarrhea and abdominal pain. Cardiovascular: Patient denies any chest pain or short of breath no palpitations. Respiratory: patient denied any cough is from production. No shortness of breath Neurologic: Patient denied any numbness or tingling headache. Musculoskeletal: Patient denies any complaints of joint swelling or deformity. Skin: Negative Psychiatric: Negative Endocrine: No heat or cold intolerance. No recent weight gain. Genitourinary: No dysuria or hematuria. All other 14 point ROS negative except the above Past Medical History Past Medical History: Asthma, Cancer, Chest Pain / Angina, COPD, Hyperlipidemia , Hypertension, Osteoarthritis (OA), Thyroid Disorder Additional Past Medical History / Comment(s): HYPOTHYROID. Hx skin cancer on nose. IBS. History of Any Multi-Drug Resistant Organisms: None Reported Past Surgical History: Appendectomy, Bladder Surgery, Hysterectomy, Joint Replacement, Orthopedic Surgery, Tonsillectomy Additional Past Surgical History / Comment(s): FACIAL SURGERY/RECONSTRUCTION POST INJURY. BILATERAL CATARACTS. Left shoulder replacement, bilateral shoulder surgery. Skin cancer on nose removed. Past Anesthesia/Blood Transfusion Reactions: Postoperative Nausea & Vomiting ( PONV) Past Psychological History: No Psychological Hx Reported Past Alcohol Use History: Rare - Past Family History Mother Family Medical History: No Reported History Father Family Medical History: Liver Disease Additional Family Medical History / Comment(s): Father was an alcoholic. He had liver cirrhosis. Medications and Allergies Home Medications Medication Instructions Recorded Confirmed Type Fluticasone/Salmeterol [Advair Hfa 2 puff INHALATION BID 09/14/13 06/28/18 History 115-21 Mcg Inhaler] Levothyroxine Sodium [Synthroid] 137 mcg PO DAILY 09/14/13 06/28/18 History Montelukast [Singulair] 10 mg PO HS 09/14/13 06/28/18 History cycloSPORINE [Restasis] 1 drop LEFT EYE BID 09/14/13 06/28/18 History Cholecalciferol [Vitamin D3] 1,000 unit PO DAILY 09/16/17 06/28/18 History Losartan [Cozaar] 50 mg PO BID 09/16/17 06/28/18 History Multivitamins, Thera [Multivitamin 1 tab PO DAILY 09/16/17 06/28/18 History (formulary)] ALPRAZolam [Xanax] 0.25 mg PO Q8H PRN 05/07/18 06/28/18 History Albuterol Inhaler [Ventolin Hfa 1 - 2 puff INHALATION Q6HR PRN 05/07/18 History Inhaler] Aspirin [Adult Low Dose Aspirin EC] 81 mg PO DAILY 05/07/18 06/28/18 History Nitroglycerin Sl Tabs [Nitrostat] 0.4 mg SUBLINGUAL Q5M PRN 05/07/18 06/28/18 History Dicyclomine [Bentyl] 20 mg PO QID PRN 06/28/18 06/28/18 History Atorvastatin [Lipitor] 20 mg PO HS #30 tab 06/29/18 Rx Isosorbide Mononitrate ER [Imdur] 60 mg PO DAILY #90 tab.er.24h 06/29/18 Rx Metoprolol Tartrate [Lopressor] 25 mg PO BID #180 tab 06/29/18 Rx Ranolazine [Ranexa] 500 mg PO Q12HR #180 tab.er.12h 06/29/18 Rx Allergies Allergy/AdvReac Type Severity Reaction Status Date / Time acetaminophen [From Vicodin] Allergy Anaphylaxis Verified 02/17/19 13:01 ciprofloxacin [From Cipro] Allergy Unknown Verified 06/28/18 13:01 hydrocodone bitartrate Allergy Anaphylaxis Verified 06/28/18 13:01 [From Vicodin] levofloxacin [From Levaquin] Allergy Unknown Verified 06/28/18 13:01 Physical Exam Vitals: Vital Signs Temp Pulse Pulse Resp BP BP Pulse Ox 06/29/18 12:00 98.1 F 79 18 147/78 94 L 06/29/18 08:10 97.8 F 79 18 169/78 94 L 06/29/18 06:30 74 14 140/76 98 06/29/18 06:00 68 16 137/68 96 06/29/18 03:00 76 18 132/51 94 L 06/29/18 02:30 80 18 133/54 06/29/18 02:00 77 18 136/52 92 L 06/29/18 01:30 77 18 147/60 93 L 06/29/18 01:00 79 16 161/58 92 L 06/29/18 00:30 79 16 150/65 93 L 06/28/18 23:30 75 H 136/58 88 L 06/28/18 23:00 78 16 131/59 94 L 06/28/18 22:00 86 16 121/61 92 L 06/28/18 21:00 73 20 134/56 92 L 06/28/18 20:00 78 18 174/81 94 L 06/28/18 19:30 106 H 20 158/75 96 06/28/18 19:00 86 20 147/68 96 06/28/18 18:30 87 22 151/61 06/28/18 17:30 75 18 141/60 92 L 06/28/18 17:00 79 18 136/59 94 L 06/28/18 16:30 80 14 152/68 95 06/28/18 16:00 78 27 H 140/61 95 06/28/18 15:30 77 17 138/67 96 Intake and Output 06/29/18 06/29/18 06/29/18 06:59 14:59 22:59 Intake Total 354 Balance 354 Intake: Oral 354 Other: # Voids 1 PHYSICAL EXAMINATION: Patient is lying in the bed comfortably, no acute distress, awake alert and oriented.. HEENT: Normocephalic. Neck is supple. Pupils reactive. Nostrils clear. Oral cavity is moist. Ears reveal no drainage. Neck reveals no JVD, carotid bruits, or thyromegaly. CHEST EXAMINATION: Trachea is central. Symmetrical expansion. Lung le clear to auscultation and percussion. CARDIAC: Normal S1, S2 with no gallops. No murmurs ABDOMEN: Soft. Bowel sounds normal. No organomegaly. No abdominal bruits. Extremities: reveal no edema. No clubbing or cyanosis Neurologically awake, alert, oriented x3 with well-coordinated movements. No focal deficits noted Skin: No rash or skin lesions. Psychiatric: Coperative. Nonsuicidal Musculoskeletal: No joint swelling or deformity. Normal range of motion. Results CBC & Chem 7: 06/28/18 12:11 06/28/18 12:11 Labs: Abnormal Lab Results - Last 24 Hours (Table) 06/28/18 Range/Units 12:11 HDL Cholesterol 77 H (40-60) mg/dL Thrombosis Risk Factor Assmnt - DVT/VTE Prophylaxis DVT/VTE Prophylaxis: Pharmacologic Prophylaxis ordered - Choose All That Apply Any of the Below Risk Factors Present?: Yes Each Factor Represents 1 point: Abnormal pulmonary function (COPD), Hx of IBD, Obesity (BMI >25) Other Risk Factors: Yes Each Risk Factor Represents 2 Points: Age 61-74 years Other congenital or acquired thrombophilia - If yes, enter type in comment: No Thrombosis Risk Factor Assessment Total Risk Factor Score: 5 Thrombosis Risk Factor Assessment Level: High Risk Assessment and Plan Assessment: Chest pain possible angina like symptoms. History of coronary artery disease with recent cardiac catheterization showed chronic total occlusion of RCA not in the territory of ischemia noted on stress test. Maximal medical therapy was recommended. Next and hypertension Hyperlipidemia Hypothyroidism Hyperlipidemia COPD not in exacerbation History of skin cancer on nose IBS DVT prophylaxis Plan: Patient will be continued on telemetry monitoring. Serial EKGs and troponins are negative. Cardiology recommends management maximal medical therapy. Increasing the dose to 60 mg daily. Adding Ranexa 500 mg twice a day and Lopressor 25 mg twice a day. Currently patient is chest pain-free. Continue the home medications and further recommendations based on the clinical course. Time with Patient: Greater than 30
--- NOTE | 2018-06-29 22:03 | P.DS ---
Providers Date of admission: 06/28/18 13:59 Expected date of discharge: 06/29/18 Attending physician: Rinku Penaloza Consults: 06/28/18 13:57 Consult Physician Urgent Consulting Provider: Ramses Núñez Consult Reason/Comments: cp Do you want consulting provider notified?: Yes Primary care physician: Rinku Penaloza Hospital Course: Discharge diagnosis Chest pain possible angina like symptoms. Ruled out ACS History of coronary artery disease with recent cardiac catheterization showed chronic total occlusion of RCA not in the territory of ischemia noted on stress test. Maximal medical therapy was recommended. Next and hypertension Hyperlipidemia Hypothyroidism Hyperlipidemia COPD not in exacerbation History of skin cancer on nose IBS DVT prophylaxis Hospital course Patient is a 73-year-old female with a known history of hypertension, hyperlipidemia, hypothyroidism and history of skin cancer and coronary artery disease who follows with Dr. Bower as an outpatient came to the hospital with complaints of sharp midsternal chest pain radiating under the right breast. Patient states that she woke up in the morning yesterday and took a shower and walked out into the kitchen and sat down. She started feeling chest pain at the time. Patient took sublingual nitroglycerin without much relief. Denied any associated short of breath. No headache or dizziness or lightheadedness. No nausea vomiting or diaphoresis. Patient came to the hospital for further evaluation. Denied any cough or sputum production. Patient was recently diagnosed with pneumonia last week and is currently taking antibiotics at home. Chest x-ray negative for any cardiopulmonary process EKG showed sinus rhythm with no acute ST-T wave changes. Troponin 3 negative LDL 87 Patient was continued on telemetry monitoring. Serial EKGs and troponins are negative. Cardiology recommends management maximal medical therapy. Increasing the dose to 60 mg daily. Adding Ranexa 500 mg twice a day and Lopressor 25 mg twice a day. Currently patient is chest pain-free. Able to ambulating with or short of breath or chest pain. PHYSICAL EXAMINATION: Patient is lying in the bed comfortably, no acute distress, awake alert and oriented.. HEENT: Normocephalic. Neck is supple. Pupils reactive. Nostrils clear. Oral cavity is moist. Ears reveal no drainage. Neck reveals no JVD, carotid bruits, or thyromegaly. CHEST EXAMINATION: Trachea is central. Symmetrical expansion. Lung le clear to auscultation and percussion. CARDIAC: Normal S1, S2 with no gallops. No murmurs ABDOMEN: Soft. Bowel sounds normal. No organomegaly. No abdominal bruits. Extremities: reveal no edema. No clubbing or cyanosis Neurologically awake, alert, oriented x3 with well-coordinated movements. No focal deficits noted Skin: No rash or skin lesions. Psychiatric: Coperative. Nonsuicidal Musculoskeletal: No joint swelling or deformity. Normal range of motion. Vital Signs 06/29/18 15:23 Temperature 98.1 F Pulse Rate [ 74 Pulse Oximetery ] Respiratory 18 Rate Blood Pressure 134/72 [Left Arm] O2 Sat by Pulse 95 Oximetry Patient Condition at Discharge: Fair Plan - Discharge Summary Discharge Rx Participant: No New Discharge Prescriptions: New Isosorbide Mononitrate ER [Imdur] 60 mg PO DAILY #90 tab.er.24h Metoprolol Tartrate [Lopressor] 25 mg PO BID #180 tab Ranolazine [Ranexa] 500 mg PO Q12HR #180 tab.er.12h Atorvastatin [Lipitor] 20 mg PO HS #30 tab Continue Levothyroxine Sodium [Synthroid] 137 mcg PO DAILY Montelukast [Singulair] 10 mg PO HS cycloSPORINE [Restasis] 1 drop LEFT EYE BID Fluticasone/Salmeterol [Advair Hfa 115-21 Mcg Inhaler] 2 puff INHALATION BID Multivitamins, Thera [Multivitamin (formulary)] 1 tab PO DAILY Cholecalciferol [Vitamin D3] 1,000 unit PO DAILY Losartan [Cozaar] 50 mg PO BID Nitroglycerin Sl Tabs [Nitrostat] 0.4 mg SUBLINGUAL Q5M PRN PRN Reason: Chest Pain Albuterol Inhaler [Ventolin Hfa Inhaler] 1 - 2 puff INHALATION Q6HR PRN PRN Reason: Shortness Of Breath ALPRAZolam [Xanax] 0.25 mg PO Q8H PRN PRN Reason: Anxiety Aspirin [Adult Low Dose Aspirin EC] 81 mg PO DAILY Dicyclomine [Bentyl] 20 mg PO QID PRN PRN Reason: IBS Discontinued Atorvastatin [Lipitor] 10 mg PO HS Isosorbide Mononitrate ER [Imdur] 30 mg PO DAILY Discharge Medication List Fluticasone/Salmeterol [Advair Hfa 115-21 Mcg Inhaler] 2 puff INHALATION BID 10/23 [History] Levothyroxine Sodium [Synthroid] 137 mcg PO DAILY 09/14/13 [History] Montelukast [Singulair] 10 mg PO HS 09/14/13 [History] cycloSPORINE [Restasis] 1 drop LEFT EYE BID 09/14/13 [History] Cholecalciferol [Vitamin D3] 1,000 unit PO DAILY 09/16/17 [History] Losartan [Cozaar] 50 mg PO BID 09/16/17 [History] Multivitamins, Thera [Multivitamin (formulary)] 1 tab PO DAILY 09/16/17 [History ] ALPRAZolam [Xanax] 0.25 mg PO Q8H PRN 05/07/18 [History] Albuterol Inhaler [Ventolin Hfa Inhaler] 1 - 2 puff INHALATION Q6HR PRN [History] Aspirin [Adult Low Dose Aspirin EC] 81 mg PO DAILY 05/07/18 [History] Nitroglycerin Sl Tabs [Nitrostat] 0.4 mg SUBLINGUAL Q5M PRN 05/07/18 [History] Dicyclomine [Bentyl] 20 mg PO QID PRN 06/28/18 [History] Atorvastatin [Lipitor] 20 mg PO HS #30 tab 06/29/18 [Rx] Isosorbide Mononitrate ER [Imdur] 60 mg PO DAILY #90 tab.er.24h 06/29/18 [Rx] Metoprolol Tartrate [Lopressor] 25 mg PO BID #180 tab 06/29/18 [Rx] Ranolazine [Ranexa] 500 mg PO Q12HR #180 tab.er.12h 06/29/18 [Rx] Follow up Appointment(s)/Referral(s): Ramses Núñez MD [STAFF PHYSICIAN] - 07/14/18 2:15 pm Rinku Penaloza DO [Primary Care Provider] - 1-2 days Patient Instructions/Handouts: Chest Pain (DC) Discharge Disposition: HOME SELF-CARE
[2018-06-30] MEDS ORDERED: ASPIRIN 81 MG PO SCH (09:00)
== END 2018-06-29 16:07 | disposition home or self-care (01) ==
LOC: EC 11:34 → 1SOBS 13:59
PROVIDERS: ADMIT Family Medicine; ATTEND Family Medicine
DX: R07.89 Other chest pain (principal); E03.9 Hypothyroidism, unspecified; E78.5 Hyperlipidemia, unspecified; I10 Essential (primary) hypertension; I25.10 Atherosclerotic heart disease of native coronary artery without angina pectoris; I25.82 Chronic total occlusion of coronary artery; J45.909 Unspecified asthma, uncomplicated; J44.9 Chronic obstructive pulmonary disease, unspecified; Z87.01 Personal history of pneumonia (recurrent); K58.9 Irritable bowel syndrome, unspecified; Z79.51 Long term (current) use of inhaled steroids; Z79.82 Long term (current) use of aspirin; Z79.890 Hormone replacement therapy; Z79.899 Other long term (current) drug therapy; Z85.828 Personal history of other malignant neoplasm of skin; Z90.710 Acquired absence of both cervix and uterus; Z96.612 Presence of left artificial shoulder joint; Z98.41 Cataract extraction status, right eye; Z98.42 Cataract extraction status, left eye; Z81.1 Family history of alcohol abuse and dependence; Z88.1 Allergy status to other antibiotic agents; Z88.5 Allergy status to narcotic agent; E66.9 Obesity, unspecified; Z68.32 Body mass index [BMI] 32.0-32.9, adult
CPT/HCPCS: 99285; 36415; 93005 ×2; 80061; 80053; 82550 ×2; 82553 ×2; 83735; 84484 ×2; 85025; 85610; 85730; 71046; G0378 ×2

== ENCOUNTER → 2018-08-21 | Outpatient (CLI) | payer MEDICARE ==
[2018-08-21 13:30] LABS: HCT 41.9 % (34.0-46.0); HGB 13.4 gm/dL (11.4-16.0); MCH 29.8 pg (25.0-35.0); MCHC 31.9 g/dL (31.0-37.0); MCV 93.2 fL (80.0-100.0); Mean Platelet Volume 7.2; Platelet Count 229 k/uL (150-450); RBC 4.49 m/uL (3.80-5.40); RDW 13.6 % (11.5-15.5); WBC 7.2 k/uL (3.8-10.6)
[2018-08-21 13:37] LABS: ALT 55 U/L (9-52); AST 29 U/L (14-36); Albumin 4.2 g/dL (3.5-5.0); Alkaline Phosphatase 70 U/L (38-126); Anion Gap 9 mmol/L; Blood Urea Nitrogen 16 mg/dL (7-17); Calcium 9.6 mg/dL (8.4-10.2); Carbon Dioxide 26 mmol/L (22-30); Chloride 102 mmol/L (98-107); Glucose 87 mg/dL (74-99); Potassium 4.2 mmol/L (3.5-5.1); Sodium 137 mmol/L (137-145); Total Bilirubin 0.4 mg/dL (0.2-1.3); Total Protein 6.6 g/dL (6.3-8.2)
[2018-08-21 13:42] LABS: INR 0.9 (<1.2); Prothrombin Time 9.8 sec (9.0-12.0)
[2018-08-21 13:50] LABS: Partial Thromboplastin Time 21.6 sec (22.0-30.0)
[2018-08-21 14:24] LABS: Appearance,Urine Clear (Clear); Bilirubin,Urine Negative (Negative); Blood,Urine Negative (Negative); Color,Urine Yellow; Glucose,Urine (UA) Negative (Negative); Ketones,Urine Negative (Negative); Leukocyte Esterase,Urine Negative (Negative); Nitrite,Urine Negative (Negative); PH, Urine 6.5 (5.0-8.0); Protein,Urine Trace (Negative); Specific Gravity,Urine 1.023 (1.001-1.035); Urobilinogen,Urine <2.0 mg/dL (<2.0)
== END | disposition home or self-care (01) ==
LOC: LAB 12:04
PROVIDERS: ATTEND Orthopaedic Surgery
DX: Z01.818 Encounter for other preprocedural examination (principal); M17.12 Unilateral primary osteoarthritis, left knee; Z01.812 Encounter for preprocedural laboratory examination
CPT/HCPCS: 80053; 81003; 85027; 85610; 85730; 87070; 93005

== ENCOUNTER 2018-09-14 08:35 | Inpatient (IN) | payer MEDICARE ==
[2018-09-07 11:46] VITALS: BMI 32.8
[~2018-09-14 08:35] MED LIST changes: -ALPRAZolam 0.25 MG TAB PO PRN; -ALPRAZolam 0.5 MG TAB PO PRN; -ASPIRIN 325 MG TAB PO STA; -ATORVASTATIN 80 MG TAB PO STA; +DEXAMETHASONE SOD PHOSPHATE 10 MG/ML 1 ML VIAL IV ONE; +LIDOCAINE 1% 20 ML VIAL (10MG/ML) FOR IV START INTRADERMA PRN; +MELOXICAM 7.5 MG TAB PO ONE; +MIDAZOLAM (PF) 2 MG/2 ML VIAL IV PRN; -NITROGLYCERIN SL TABS 0.4 MG TAB SUBLINGUAL PRN; +ONDANSETRON 4 MG/2 ML VIAL IVP ONE; -SODIUM CHLORIDE 0.9% 1,000 ML in EMPTY BAG 1 BAG IV ONE; +TRANEXAMIC ACID 1,000 MG in SODIUM CHLORIDE 0.9% 100 ML IVPB ONE; +ceFAZolin IN SWFI 2 GM/20 ML SYRINGE IVP ONE; +fentaNYL (PF) 50 MCG/ML 2 ML AMP IV PRN
[2018-09-14] MEDS ORDERED: ROPIVACAINE 246.25 MG, EPINEPHrine 0.5 MG, KETOROLAC 30 MG, cloNIDine HCL/PF 80 MCG, WA... MISCELLANE STA ×5 (09:12)
[2018-09-14] MEDS: LACTATED RINGERS 1,000 ML IV SCH ×4 (09:24→22:50)
[2018-09-14] MEDS ORDERED: ROPIVACAINE 1,100 MG, SODIUM CHLORIDE 0.9% 500 ML 330 ML MISCELLANE PRN ×2 (09:59)
[2018-09-14] MEDS ORDERED: LIDOCAINE 1% INJ 10MG/ML (20 ML MDV) ONE (10:20)
[2018-09-14] MEDS ORDERED: fentaNYL (PF) 50 MCG/ML 2 ML AMP ONE (10:20)
[2018-09-14] MEDS ORDERED: TRANEXAMIC ACID 1,000 MG/10 ML VIAL ONE (10:20)
[2018-09-14] MEDS ORDERED: PROPOFOL 10 MG/ML 20 ML VIAL IV ONE (10:20)
[2018-09-14] MEDS ORDERED: SODIUM CHLORIDE 0.9% 100 ML BAG ONE (10:20)
[2018-09-14] MEDS ORDERED: MIDAZOLAM 2 MG/2 ML VIAL ONE (10:20)
[2018-09-14] MEDS ORDERED: ceFAZolin 3,000 MG in SODIUM CHLORIDE 0.9% IRRIGATIO 3,000 ML IRRIGATION ONE (10:23)
[2018-09-14] MEDS ORDERED: LACTATED RINGERS 1,000 ML IV ONE (11:14)
[2018-09-14] MEDS ORDERED: MAGNESIUM HYDROXIDE 2,400 MG/10 ML CUP PO PRN (12:40)
[2018-09-14] MEDS ORDERED: BISACODYL 10 MG SUPP RECTAL PRN (12:40)
[2018-09-14] MEDS ORDERED: ONDANSETRON 4 MG/2 ML VIAL IVP PRN (12:40)
[2018-09-14] MEDS ORDERED: NA PHOS,M-B/NA PHOS,DI-BA 133 ML ENEMA RECTAL PRN (12:40)
[2018-09-14] MEDS ORDERED: HYDROcodone/APAP 5-325MG 1 EACH TAB PO PRN ×2 (12:40)
[2018-09-14] MEDS ORDERED: NALOXONE 0.4 MG/ML 1 ML VIAL IV PRN (12:40)
[2018-09-14] MEDS ORDERED: HYDROmorphone 0.5 MG/0.5 ML SYRINGE IVP PRN ×3 (12:40)
--- NOTE | 2018-09-14 13:35 | XR ---
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 There is soft tissue edema and emphysema. IMPRESSION: 1. Postoperative change. Appears in near-anatomic alignment
[2018-09-14] MEDS: traMADol 50 MG TAB PO PRN ×2 (16:09→21:40)
[2018-09-14] MEDS: ceFAZolin IN SWFI 2 GM/20 ML SYRINGE IVP SCH (16:21)
[2018-09-14] MEDS ORDERED: SENNOSIDES-DOCUSATE SODIUM 1 EACH TAB PO SCH (21:00)
[2018-09-14] MEDS ORDERED: ALBUTEROL NEBULIZED 2.5 MG/3 ML INHALATION PRN (21:03)
[2018-09-14] MEDS ORDERED: NITROGLYCERIN SL TABS 0.4 MG TAB SUBLINGUAL PRN (21:03)
[2018-09-14] MEDS ORDERED: DICYCLOMINE 20 MG TAB PO PRN (21:03)
[2018-09-14] MEDS ORDERED: ALPRAZolam 0.25 MG TAB PO PRN (21:03)
[2018-09-14] MEDS ORDERED: MONTELUKAST 10 MG TAB PO SCH (21:15)
[2018-09-14] MEDS ORDERED: LOSARTAN 25 MG TAB PO SCH (21:15)
[2018-09-14] MEDS ORDERED: ATORVASTATIN 20 MG TAB PO SCH (21:15)
[2018-09-14] MEDS: cycloSPORINE 0.05% OPHTH 0.4 ML DROPERETTE BOTH EYES SCH (21:36)
[2018-09-14] MEDS: METOPROLOL TARTRATE 25 MG TAB PO SCH (21:36)
[2018-09-14] MEDS ORDERED: TEMAZEPAM 15 MG CAP PO PRN (22:00)
[2018-09-15] MEDS: ceFAZolin IN SWFI 2 GM/20 ML SYRINGE IVP SCH (00:01)
[2018-09-15] MEDS: traMADol 50 MG TAB PO PRN ×2 (05:08→11:03)
[2018-09-15] MEDS ORDERED: LEVOTHYROXINE 137 MCG TAB PO SCH (06:30)
[2018-09-15] MEDS: LACTATED RINGERS 1,000 ML IV SCH (06:44)
--- NOTE | 2018-09-15 07:15 | P.PN ---
Progress Note - Text 09/15 646am Center 3-year-old female status post total knee replacement by Dr. Newby. Patient has an On-Q pump for postop pain control with the solution running at 8 mL an hour with a pain score of 4. Most of her pain is in the upper thigh probably secondary to tourniquet. Plan to continue On-Q pump infusion
[2018-09-15 07:23] VITALS: PULSE 80; RESP 18; TEMP 98.6
[2018-09-15] MEDS ORDERED: SYMBICORT 160-4.5 MCG INHALER INHALATION SCH (08:00)
[2018-09-15 08:07] VITALS: BP 125/70
[2018-09-15] MEDS: METOPROLOL TARTRATE 25 MG TAB PO SCH (08:27)
[2018-09-15] MEDS: cycloSPORINE 0.05% OPHTH 0.4 ML DROPERETTE BOTH EYES SCH (08:27)
[2018-09-15 08:57] LABS: Basophils % (A) 0 %; Eosinophils # (A) 0.1 k/uL (0-0.7); Eosinophils % (A) 1 %; HCT 32.7 % (34.0-46.0); Lymphocytes # (A) 1.5 k/uL (1.0-4.8); Lymphocytes % (A) 14 %; MCH 31.1 pg (25.0-35.0); MCHC 33.4 g/dL (31.0-37.0); MCV 93.3 fL (80.0-100.0); Mean Platelet Volume 7.3; Monocytes # (A) 0.4 k/uL (0-1.0); Monocytes % (A) 3 %; Neutrophils # (A) 9.2 k/uL (1.3-7.7); Neutrophils % (A) 82 %; Platelet Count 184 k/uL (150-450); RDW 13.6 % (11.5-15.5); WBC 11.2 k/uL (3.8-10.6)
[2018-09-15] MEDS ORDERED: RIVAROXABAN 10 MG TAB PO SCH (09:00)
[2018-09-15] MEDS ORDERED: CHOLECALCIFEROL 1,000 UNIT TAB PO SCH (09:00)
[2018-09-15] MEDS ORDERED: MELOXICAM 7.5 MG TAB PO SCH (09:00)
[2018-09-15] MEDS ORDERED: ISOSORBIDE MONONITRATE ER 30 MG TAB.ER.24H PO SCH (09:00)
[2018-09-15] MEDS ORDERED: ASPIRIN 81 MG PO SCH (09:00)
[2018-09-15 09:03] LABS: HGB 10.9 gm/dL (11.4-16.0)
--- NOTE | 2018-09-15 09:33 | P.DS ---
Providers Date of admission: 09/14/18 08:35 Expected date of discharge: 09/15/18 Attending physician: Zay Newby Consults: 09/14/18 12:40 Consult Physician Routine Consulting Provider: Rinku Penaloza Reason/Comments: Medical Management Do you want consulting provider notified?: Yes Primary care physician: Rinku Penaloza - Discharge Diagnosis(es) (1) Osteoarthritis of left knee Current Visit: Yes Status: Acute (2) Status post total left knee replacement Current Visit: Yes Status: Acute Hospital Course: This is a 73-year-old female who was last seen with complaint of continued left knee pain. The patient has a known history of degenerative arthritis of the left knee and presents to discuss surgical options. After discussion and consideration the patient elects to proceed with total left knee arthroplasty. The patient is seen preoperatively by Dr. Penaloza and cleared for surgery. The patient is admitted to [facility] for total left knee arthroplasty. The procedures performed without complication or sequelae. He is doing well postoperatively. Vital signs are stable at discharge. Labs are stable at discharge. the patient is ambulating well with walker with minimal assistance. The patient is discharged to home on postop day #1 pending medical clearance. Please see orders and refer to the med rec for accurate list of medications. Patient Condition at Discharge: Good Plan - Discharge Summary Discharge Rx Participant: Yes New Discharge Prescriptions: New Aspirin [Adult Low Dose Aspirin EC] 81 mg PO DAILY #1 tablet. HYDROcodone/APAP 5-325MG [[place] 5-325] 1 - 2 each PO Q4-6H PRN #50 tab PRN Reason: Pain Sennosides-Docusate Sodium [Senokot-S] 1 tab PO BID #60 tablet traMADol HCL [Ultram] 50 mg PO Q6HR PRN #28 tab PRN Reason: Pain Rivaroxaban [Xarelto] 10 mg PO DAILY #5 tab No Action Levothyroxine Sodium [Synthroid] 137 mcg PO QAM Montelukast [Singulair] 10 mg PO HS cycloSPORINE [Restasis] 1 drop BOTH EYES BID Fluticasone/Salmeterol [Advair Hfa 115-21 Mcg Inhaler] 2 puff INHALATION RT- BID Multivitamins, Thera [Multivitamin (formulary)] 1 tab PO DAILY Cholecalciferol [Vitamin D3 (25 Mcg = 1000 Iu)] 1,000 unit PO DAILY Nitroglycerin Sl Tabs [Nitrostat] 0.4 mg SUBLINGUAL Q5M PRN PRN Reason: Chest Pain Albuterol Inhaler [Ventolin Hfa Inhaler] 1 - 2 puff INHALATION RT-Q6H PRN PRN Reason: Shortness Of Breath ALPRAZolam [Xanax] 0.25 mg PO Q8H PRN PRN Reason: Anxiety Aspirin [Adult Low Dose Aspirin EC] 81 mg PO DAILY Dicyclomine [Bentyl] 20 mg PO QID PRN PRN Reason: IBS Atorvastatin [Lipitor] 20 mg PO HS #30 tab Isosorbide Mononitrate ER [Imdur] 30 mg PO QAM Losartan [Cozaar] 25 mg PO HS Metoprolol Tartrate [Lopressor] 12.5 mg PO BID Discharge Medication List Fluticasone/Salmeterol [Advair Hfa 115-21 Mcg Inhaler] 2 puff INHALATION RT-BID 09/14/13 [History] Levothyroxine Sodium [Synthroid] 137 mcg PO QAM 09/14/13 [History] Montelukast [Singulair] 10 mg PO HS 09/14/13 [History] cycloSPORINE [Restasis] 1 drop BOTH EYES BID 09/14/13 [History] Cholecalciferol [Vitamin D3 (25 Mcg = 1000 Iu)] 1,000 unit PO DAILY 09/16/17 [History] Multivitamins, Thera [Multivitamin (formulary)] 1 tab PO DAILY 09/16/17 [History] ALPRAZolam [Xanax] 0.25 mg PO Q8H PRN 05/07/18 [History] Albuterol Inhaler [Ventolin Hfa Inhaler] 1 - 2 puff INHALATION RT-Q6H PRN 05/07/18 [History] Aspirin [Adult Low Dose Aspirin EC] 81 mg PO DAILY 05/07/18 [History] Nitroglycerin Sl Tabs [Nitrostat] 0.4 mg SUBLINGUAL Q5M PRN 05/07/18 [History] Dicyclomine [Bentyl] 20 mg PO QID PRN 06/28/18 [History] Atorvastatin [Lipitor] 20 mg PO HS #30 tab 06/29/18 [Rx] Isosorbide Mononitrate ER [Imdur] 30 mg PO QAM 04/29/19 [History] Losartan [Cozaar] 25 mg PO HS 09/07/18 [History] Metoprolol Tartrate [Lopressor] 12.5 mg PO BID 09/07/18 [History] Aspirin [Adult Low Dose Aspirin EC] 81 mg PO DAILY #1 tablet. 09/15/18 [Rx] HYDROcodone/APAP 5-325MG [[place] 5-325] 1 - 2 each PO Q4-6H PRN #50 tab 09/15/18 [Rx] Rivaroxaban [Xarelto] 10 mg PO DAILY #5 tab 09/15/18 [Rx] Sennosides-Docusate Sodium [Senokot-S] 1 tab PO BID #60 tablet 09/15/18 [Rx] traMADol HCL [Ultram] 50 mg PO Q6HR PRN #28 tab 09/15/18 [Rx] Follow up Appointment(s)/Referral(s): Sarah Maurer, PAC [PHYSICIAN [employer]] - 2 Weeks Activity/Diet/Wound Care/Special Instructions: May bear weight as tolerated with walker. Patient or when no drainage from incision for 24 hours. Keep compressive dressing in place for 24 hours. Begin outpatient physical therapy this week. Discharge Disposition: HOME SELF-CARE
--- NOTE | 2018-09-15 17:14 | P.CONS ---
History of Present Illness - Reason for Consult Consult date: 09/15/18 Medical management COPD, hypertension Requesting physician: Zay Newby - Chief Complaint Left knee pain/osteoarthritis - History of Present Illness This is a 73-year-old female admitted for elective total left knee arthroplasty secondary to osteoarthritis of left knee. Patient had initially slipped and fell on cement in June 2018. Despite icing and elevating knee ,continued to have significant left knee pain, edema. Patient is postop day #1. Tolerated procedure well. Ambulating with walker, tolerating exertion well. Awaiting to do stairs with PT. Icing affected extremity with pain controlled. Passing flatus, no bowel movement. Good diet intake with no nausea or vomiting. Incentive spirometer up to 1000. Denies lightheadedness dizziness or focal d eficits. Denies chest pain, palpitations or increased shortness of breath.VSS. Review of Systems ROS Statement: Those systems with pertinent positive or pertinent negative responses have been documented in the HPI. ROS Other: All systems not noted in ROS Statement are negative. Past Medical History Past Medical History: Asthma, Cancer, Chest Pain / Angina, COPD, Hyperlipidemia, Hypertension, Osteoarthritis (OA), Thyroid Disorder Additional Past Medical History / Comment(s): HYPOTHYROID. Hx skin cancer on nose. IBS. History of Any Multi-Drug Resistant Organisms: None Reported Past Surgical History: Appendectomy, Bladder Surgery, Hysterectomy, Joint Replacement, Orthopedic Surgery, Tonsillectomy Additional Past Surgical History / Comment(s): FACIAL SURGERY/RECONSTRUCTION POST INJURY. BILATERAL CATARACTS. Left shoulder replacement, bilateral shoulder surgery. Skin cancer on nose removed. Past Anesthesia/Blood Transfusion Reactions: Postoperative Nausea & Vomiting (PONV) Past Psychological History: No Psychological Hx Reported Additional Psychological History / Comment(s): Pt resides with her spouse who has a CHI. 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 She is independent. Smoking Status: Former smoker Past Alcohol Use History: None Reported Additional Past Alcohol Use History / Comment(s): Pt started smoking in 1962 nd quit in 1992. Past Drug Use History: None Reported - Past Family History Mother Family Medical History: No Reported History Father Family Medical History: Liver Disease Additional Family Medical History / Comment(s): Father was an alcoholic. He had liver cirrhosis. Medications and Allergies Home Medications Medication Instructions Recorded Confirmed Type Fluticasone/Salmeterol [Advair Hfa 2 puff INHALATION RT-BID 09/14/13 09/14/18 History 115-21 Mcg Inhaler] Levothyroxine Sodium [Synthroid] 137 mcg PO QAM 09/14/13 09/14/18 History Montelukast [Singulair] 10 mg PO HS 09/14/13 09/14/18 History cycloSPORINE [Restasis] 1 drop BOTH EYES BID 09/14/13 09/14/18 History Cholecalciferol [Vitamin D3 (25 1,000 unit PO DAILY 09/16/17 09/14/18 History Mcg = 1000 Iu)] Multivitamins, Thera [Multivitamin 1 tab PO DAILY 09/16/17 09/14/18 History (formulary)] ALPRAZolam [Xanax] 0.25 mg PO Q8H PRN 05/07/18 09/14/18 History Albuterol Inhaler [Ventolin Hfa 1 - 2 puff INHALATION RT-Q6H PRN 05/07/18 09/14/18 History Inhaler] Nitroglycerin Sl Tabs [Nitrostat] 0.4 mg SUBLINGUAL Q5M PRN 05/07/18 09/14/18 History Dicyclomine [Bentyl] 20 mg PO QID PRN 06/28/18 09/14/18 History Atorvastatin [Lipitor] 20 mg PO HS #30 tab 06/29/18 09/14/18 Rx Isosorbide Mononitrate ER [Imdur] 30 mg PO QAM 09/07/18 09/14/18 History Losartan [Cozaar] 25 mg PO HS 09/07/18 09/14/18 History Metoprolol Tartrate [Lopressor] 12.5 mg PO BID 09/07/18 09/14/18 History Aspirin [Adult Low Dose Aspirin EC] 81 mg PO DAILY #1 tablet.dr 09/15/18 Rx HYDROcodone/APAP 5-325MG [[place] 1 - 2 each PO Q4-6H PRN #50 tab 09/15/18 Rx 5-325] Rivaroxaban [Xarelto] 10 mg PO DAILY #5 tab 09/15/18 Rx Sennosides-Docusate Sodium 1 tab PO BID #60 tablet 09/15/18 Rx [Senokot-S] traMADol HCL [Ultram] 50 mg PO Q6HR PRN #28 tab 09/15/18 Rx Allergies Allergy/AdvReac Type Severity Reaction Status Date / Time ciprofloxacin [From Cipro] Allergy Unknown Verified 09/14/18 13:10 hydrocodone bitartrate Allergy Anaphylaxis Verified 09/14/18 13:10 [From Vicodin] levofloxacin [From Levaquin] Allergy Unknown Verified 09/14/18 13:10 Physical Exam Vitals: Vital Signs Temp Pulse Pulse Resp BP BP Pulse Ox 09/15/18 08:06 125/70 09/15/18 07:00 98.6 F 80 18 161/73 93 L 09/15/18 01:40 97.4 F L 84 17 144/66 97 09/14/18 19:40 97.5 F L 91 18 182/78 93 L 09/14/18 18:37 76 16 09/14/18 15:21 76 168/80 09/14/18 15:06 73 149/72 93 L 09/14/18 14:51 76 145/70 93 L 09/14/18 14:21 79 166/76 91 L 09/14/18 14:06 72 166/65 92 L 09/14/18 13:52 97.8 F 79 140/67 92 L 09/14/18 13:27 70 16 140/60 95 09/14/18 13:12 71 16 138/62 96 09/14/18 12:57 75 16 148/72 90 L 09/14/18 12:42 97 F L 72 16 138/72 100 Intake and Output 09/14/18 09/15/18 09/15/18 22:59 06:59 14:59 Intake Total 350 480 Output Total 300 600 Balance 50 -120 Intake: Intake, IV Titration 350 Amount Lactated Ringers 1,000 ml 350 @ 100 mls/hr IV .Q10H [facility] Rx#:[id number] Oral 480 Output: Urine 300 600 Other: Voiding Method Toilet Toilet # Voids 2 2 2 PHYSICAL EXAM: VITAL SIGNS: As above GENERAL: Sitting up in bed, no acute distress HEENT: Conjunctivae normal. eyes normal. Oral mucosa moist NECK: No JVD. No thyroid enlargement. No LNs CARDIOVASCULAR: S1, S2 regular. No murmur RESPIRATION: Breath sounds diminished in the bases. No rhonchi or crackles. No bronchial breathing. ABDOMEN: Soft, nontender . No guarding. no masses palpable. Bowel sounds heard. LEGS: Left knee with mild edema. PSYCHIATRY: Alert and oriented -3, mood and affect normal. NERVOUS SYSTEM: Cranial N 2-12 grossly normal. Moves all 4 limbs. Diffuse wea kness No focal deficits. No sensory deficit. Skin: no lesions no rash Results CBC & Chem 7: 09/15/18 08:23 Labs: Abnormal Lab Results - Last 24 Hours (Table) 09/15/18 Range/Units 08:23 WBC 11.2 H (3.8-10.6) k/uL RBC 3.50 L (3.80-5.40) m/uL Hgb 10.9 L D (11.4-16.0) gm/dL Hct 32.7 L (34.0-46.0) % Neutrophils # 9.2 H (1.3-7.7) k/uL Assessment and Plan Assessment: -Left knee osteoarthritis status post total left knee arthroplasty -COPD, stable -Hypertension -Hyperlipidemia -Hypothyroid Plan: Continue on current medication regime ,monitoring and symptomatic treatment. Home meds have been reviewed and resumed. Significant clinical improvement, orthopedics is discussing discharging patient home today. Follow- up in PCP office in 1 week. Aggressive pulmonary toileting with incentive spirometer reinforced. Further recommendations to follow. Thank you Dr. Newby for the consult. The impression and plan of care has been dictated as directed. : I performed a history and examination of this patient, discussed the same with the dictator. I agree with the dictator's note ,documented as a scribe. Any additional findings or plans will be noted. Time taken: 35 minutes
--- NOTE | 2018-09-25 07:50 | P.OP ---
Date of Procedure: 09/14/18 Procedure(s) Performed: PREOPERATIVE DIAGNOSIS: Left knee severe osteoarthritis with genu varum POSTOPERATIVE DIAGNOSIS: Left knee severe osteoarthritis with genu varum OPERATION: Left knee cemented total replacement arthroplasty. ANESTHESIA: Spinal ESTIMATED BLOOD LOSS: 100 ml. FIRE PILOT: Sarah Maurer PA-C (assistance with: patient positioning, retraction, exposure, hemostasis, leg positioning, implantation, irrigation, closure, dressing) COMPLICATIONS: None apparent. COMPONENTS IMPLANTED: Persona system from [employer] INDICATIONS: Mrs. Garcia is a 73 year old female with a history of left knee osteoarthritis. Conservative treatment has been tried and has been unsuccessful in controlling symptoms adequately. The operation of knee replacement has been discussed at length in the office, as well as potential risks and complications. These are inclusive of, but not limited to: bleeding, infection, scarring, discomfort, blood vessel and nerve damage, need for further surgery, failure to relieve symptoms, persistence, recurrence, or worsening of problems, loosening, dislocation, wear, blood clot, pulmonary embolism, , gait dysfunction, stiffness, and other risks as discussed in the office. The patient elects to proceed and the consent form has been signed. PROCEDURE: The patient was taken to the operating room and positioned on the operating room table in the supine position. Anesthesia was initiated. Care was taken to make sure that all pressure points were adequately padded. The operative lower extremity was prepped and draped in the usual aseptic fashion using ChloraPrep. Ioban drape was used for the case and the patient received intravenous antibiotics within one hour of the incision. A pneumotourniquet and leg lopez were used for the case. The limb was exsanguinated with an Esmarch bandage and the tourniquet was inflated to 350 mmHg. Time-out was called confirming the patient's identity, side, procedure and administration of antibiotics and tranexamic acid, 1 g IV. The incision was then created midline directly over the knee, carried down through skin and into the subcutaneous tissues and down to fascia. Full thickness subcutaneous medial flap was developed. Medial parapatellar arthrotomy was performed and the interior of the knee was inspected. There was end-stage osteoarthritis of the knee with a mild to moderate genu varum type deformity. The fat pad was excised and proximal medial release on the tibia was completed using meticulous dissection and a curved osteotome. The anterior cruciate ligament was taken down. Note was made of significant attrition of the anterior and significant degenerative appearance of the posterior cruciate ligaments. The exposure was excellent. The knee was flexed 90 degrees and the patella was everted. A spot was chosen on the femur approximately 1 cm anterior to the posterior cruciate ligament insertion and an intramedullary hole was created within the femur. The intramedullary guide was then set to 5 degrees of valgus. The distal cutting block was attached and pinned into position. An appropriate amount of distal femoral resection was set. The oscillating saw was then used to make the distal femoral cut. This cut was confirmed to be flat with the flat end of an osteotome. The retractors were placed around the tibia and the tibial surface was addressed. The angle and depth of resection was adjusted using an extramedullary cutting guide. The guide had a built-in 3 degree posterior slope cut. Once the cutting guide was adjusted appropriately and in line with the axis of the tibia and confirmed to be in good position in relation to the second metatarsal and transmalleolar axis, the tibial cut was then created with protection of the posterior neurovascular structures and the collateral ligaments. The tibial cut surface was removed and sized. Femoral sizing was then accomplished using anterior referencing. Care was taken to analyze the posterior condyles for signs of deficiency or severe wear, and adjustments to the guide were made, as appropriate. 3 degree external rotation pins were placed. The cutting jig for the femur was applied to these pins. The planned cuts were further analyzed prior to performing them with the oscillating saw. No femoral notching was produced. Bone fragments were removed and the cut surfaces were finished, as necessary, with a reciprocating saw. Spacer block technique was then used to confirm that the flexion and extension gaps were equal. Soft tissue releases and adjustment of the tibial and/or femoral cuts were made, as necessary, until the gaps were equal. This included release of the posterior cruciate ligament, which was tight in this patient. The femur was then further finished for a posterior cruciate ligament substituting component. Patellar resurfacing was performed using a reamer. The size of the required patellar component was estimated and the patellar surface was then reamed down to a residual thickness which would recreate the ewiiaapaayp thickness with the component. The exact placement of the patellar component was adjusted for position based on preoperative x-rays and intraoperative findings. Prior to placing trial components, anesthetic solution consisting of ropivicaine with epinephrine, ketorolac, and clonidine was injected carefully and methodically in a grid pattern using aspiration technique into the soft tissue around the knee circumferentially, starting with the deeper tissues first and progressing to fascia, and then finally the skin/subcutaneous tissue. Particular care was taken when injecting the posterior capsule. The trial components were inserted. The tibial tray was allowed to self center and the patella was noted to track very well. The position of the tibial component was marked and the tibia was then finished for a stemmed tibial component. Cement was mixed on the back table and applied to the final components. Trial components were removed and the cut surfaces of the bone were pulse lavaged thoroughly and dried. Cement was then applied to the tibial shey face and pressurized into the surface using finger pressurization technique. The tibial component was then applied and excess cement was removed after it was impacted securely and noted to be flush with the cut surface. In similar fashion, the cement was applied to the cut femoral surface, pressurized in using finger pressurization and the component was impacted into place. Excess cement was removed. The polyethylene spacer was then implanted and locked into position. The patellar component was then applied in similar technique and a patellar clamp was used to hold the patella in place as the cement hardened. Once the cement had fully hardened, the knee was reinspected. Any other cement extrusion was removed and final kinematic testing showed range of motion from 0 to 130 degrees with excellent stability, both medially and laterally and appropriate alignment of the leg. Patellar tracking was excellent. The knee was then thoroughly pulse lavaged with normal saline. The tourniquet wa s deflated and hemostasis was obtained with electrocautery and IV tranexamic acid, 1 g given prior to inflation of the tourniquet and another gram given at the time of closure. Closure was with #2 Ethibond in the fascia and supplemented with #2 Quill, 2-0 Vicryl suture was used for the subcutaneous tissues and 3-0 Quill for the skin. Dermabond/Steri-Strips were then applied. A lightly compressive dressing was applied using Webril and an Tanvir wrap. The patient was then transferred to stretcher and taken to the recovery room in stable condition. Sponge and needle counts were correct.
== END 2018-09-15 17:59 | disposition home health service (06) | DRG 470 ==
LOC: 2ORMAIN 08:35 → 4SSUR 12:46
PROVIDERS: ADMIT Orthopaedic Surgery; ATTEND Orthopaedic Surgery
PROC: 0SRD0J9 Replacement of Left Knee Joint with Synthetic Substitute, Cemented, Open Approach (ICD-10-PCS; principal; 2018-09-14 10:20)
DX: M17.12 Unilateral primary osteoarthritis, left knee (principal); J44.9 Chronic obstructive pulmonary disease, unspecified; M21.162 Varus deformity, not elsewhere classified, left knee; E78.2 Mixed hyperlipidemia; E03.9 Hypothyroidism, unspecified; I10 Essential (primary) hypertension; F41.9 Anxiety disorder, unspecified; K58.9 Irritable bowel syndrome, unspecified; Z79.51 Long term (current) use of inhaled steroids; Z79.890 Hormone replacement therapy; Z79.82 Long term (current) use of aspirin; Z79.899 Other long term (current) drug therapy; Z91.81 History of falling; Z85.828 Personal history of other malignant neoplasm of skin; Z87.891 Personal history of nicotine dependence; Z90.710 Acquired absence of both cervix and uterus; Z96.612 Presence of left artificial shoulder joint; Z90.49 Acquired absence of other specified parts of digestive tract; Z87.01 Personal history of pneumonia (recurrent); Z98.890 Other specified postprocedural states; Z98.42 Cataract extraction status, left eye; Z98.41 Cataract extraction status, right eye; Z88.1 Allergy status to other antibiotic agents; Z88.5 Allergy status to narcotic agent; Z81.1 Family history of alcohol abuse and dependence; Z83.79 Family history of other diseases of the digestive system; Z82.5 Family history of asthma and other chronic lower respiratory diseases; Z82.49 Family history of ischemic heart disease and other diseases of the circulatory system
CPT/HCPCS: 85025; 88300; 94640

== ENCOUNTER 2018-09-17 18:23 | Observation (INO) | payer MEDICARE ==
[2018-09-17] MEDS ORDERED: SODIUM CHLORIDE 0.9% 500 ML 500 ML IV STA (18:51)
[2018-09-17] MEDS ORDERED: PANTOPRAZOLE 40 MG/10 ML VIAL IVP STA (18:51)
[2018-09-17 19:08] LABS: Basophils # (A) 0.1 k/uL (0-0.2); Basophils % (A) 1 %; Eosinophils # (A) 0.3 k/uL (0-0.7); Eosinophils % (A) 3 %; HCT 32.4 % (34.0-46.0); HGB 10.7 gm/dL (11.4-16.0); Lymphocytes # (A) 1.8 k/uL (1.0-4.8); Lymphocytes % (A) 15 %; MCH 30.3 pg (25.0-35.0); MCHC 33.1 g/dL (31.0-37.0); MCV 91.5 fL (80.0-100.0); Monocytes # (A) 0.6 k/uL (0-1.0); Monocytes % (A) 5 %; Neutrophils # (A) 9.2 k/uL (1.3-7.7); Neutrophils % (A) 76 %; Platelet Count 223 k/uL (150-450); RBC 3.54 m/uL (3.80-5.40); RDW 13.8 % (11.5-15.5); WBC 12.2 k/uL (3.8-10.6)
[2018-09-17 19:18] LABS: INR 0.9 (<1.2); Partial Thromboplastin Time 22.8 sec (22.0-30.0); Prothrombin Time 9.7 sec (9.0-12.0)
[2018-09-17 19:22] LABS: ALT 39 U/L (9-52); AST 47 U/L (14-36); Albumin 3.8 g/dL (3.5-5.0); Alkaline Phosphatase 62 U/L (38-126); Anion Gap 9 mmol/L; Blood Urea Nitrogen 11 mg/dL (7-17); Calcium 9.2 mg/dL (8.4-10.2); Carbon Dioxide 26 mmol/L (22-30); Chloride 98 mmol/L (98-107); Glucose 110 mg/dL (74-99); Potassium 3.8 mmol/L (3.5-5.1); Sodium 133 mmol/L (137-145); Total Bilirubin 1.2 mg/dL (0.2-1.3); Total Protein 6.2 g/dL (6.3-8.2)
[2018-09-17] MEDS ORDERED: IPRATROPIUM-ALBUTEROL 3 ML NEB INHALATION STA (20:20)
--- NOTE | 2018-09-17 20:52 | ED ---
General Adult HPI <Mark Muniz - Last Filed: 09/17/18 20:58> - General Source: patient, RN notes reviewed Mode of arrival: wheelchair Limitations: no limitations <Scooby Gerardo - Last Filed: 09/17/18 21:13> - General Chief complaint: GI Bleed Stated complaint: Rectal Bleeding Time Seen by Provider: 09/17/18 18:51 - History of Present Illness Initial comments: 73-year-old female with a past medical history of skin cancer, COPD, asthma, hyperlipidemia, hypertension, IBS presents to the emergency department for chief complaint of rectal bleeding. This just started today. Patient states she has had bright red blood per rectum. States she is wearing a pad right now because of the bleeding. Patient denies any melena. Denies vomiting. Patient is denying any abdominal pain at this time. Patient did have a colonoscopy about 2 years ago which showed a polyp, no other findings. Patient did have a knee surgery about 5 days ago and was started on aspirin at that time, no other blood thinners..Patient has no other complaints at this time including shortness of breath, chest pain, abdominal pain, nausea or vomiting, headache, or visual changes. (Scooby Gerardo) - Related Data Home Medications Medication Instructions Recorded Confirmed Fluticasone/Salmeterol [Advair Hfa 2 puff INHALATION RT-BID 09/14/13 09/17/18 115-21 Mcg Inhaler] Levothyroxine Sodium [Synthroid] 137 mcg PO QAM 09/14/13 09/17/18 Montelukast [Singulair] 10 mg PO HS 09/14/13 09/17/18 cycloSPORINE [Restasis] 1 drop BOTH EYES BID 09/14/13 09/17/18 Cholecalciferol [Vitamin D3 (25 1,000 unit PO DAILY 09/16/17 09/17/18 Mcg = 1000 Iu)] Multivitamins, Thera [Multivitamin 1 tab PO DAILY 09/16/17 09/17/18 (formulary)] ALPRAZolam [Xanax] 0.25 mg PO Q8H PRN 05/07/18 09/17/18 Albuterol Inhaler [Ventolin Hfa 1 - 2 puff INHALATION RT-Q6H PRN 05/07/18 09/17/18 Inhaler] Nitroglycerin Sl Tabs [Nitrostat] 0.4 mg SUBLINGUAL Q5M PRN 05/07/18 09/17/18 Dicyclomine [Bentyl] 20 mg PO QID PRN 06/28/18 09/17/18 Isosorbide Mononitrate ER [Imdur] 30 mg PO QAM 09/07/18 09/17/18 Losartan [Cozaar] 25 mg PO HS 09/07/18 09/17/18 Metoprolol Tartrate [Lopressor] 12.5 mg PO BID 09/07/18 09/17/18 Previous Rx's Medication Instructions Recorded Atorvastatin [Lipitor] 20 mg PO HS #30 tab 06/29/18 Aspirin [Adult Low Dose Aspirin EC] 81 mg PO DAILY #1 tablet. 09/15/18 HYDROcodone/APAP 5-325MG [[place] 1 - 2 each PO Q4-6H PRN #50 tab 09/15/18 5-325] Rivaroxaban [Xarelto] 10 mg PO DAILY #5 tab 09/15/18 Sennosides-Docusate Sodium 1 tab PO BID #60 tablet 09/15/18 [Senokot-S] traMADol HCL [Ultram] 50 mg PO Q6HR PRN #28 tab 09/15/18 Allergies Allergy/AdvReac Type Severity Reaction Status Date / Time ciprofloxacin [From Cipro] Allergy Unknown Verified 09/17/18 19:00 hydrocodone bitartrate Allergy Anaphylaxis Verified 09/17/18 19:00 [From Vicodin] levofloxacin [From Levaquin] Allergy Unknown Verified 09/17/18 19:00 Review of Systems ROS Other: All systems not noted in ROS Statement are negative. <Mark Muniz - Last Filed: 09/17/18 20:58> ROS Other: All systems not noted in ROS Statement are negative. <Scooby Gerardo - Last Filed: 09/17/18 21:13> ROS Statement: Those systems with pertinent positive or pertinent negative responses have been documented in the HPI. Past Medical History Past Medical History: Asthma, Cancer, Chest Pain / Angina, COPD, Hyperlipidemia, Hypertension, Osteoarthritis (OA), Thyroid Disorder Additional Past Medical History / Comment(s): HYPOTHYROID. Hx skin cancer on nose. IBS. History of Any Multi-Drug Resistant Organisms: None Reported Past Surgical History: Appendectomy, Bladder Surgery, Hysterectomy, Joint Replacement, Orthopedic Surgery, Tonsillectomy Additional Past Surgical History / Comment(s): FACIAL SURGERY/RECONSTRUCTION POST INJURY. BILATERAL CATARACTS. Left shoulder replacement, bilateral shoulder surgery. Skin cancer on nose removed. Past Anesthesia/Blood Transfusion Reactions: Postoperative Nausea & Vomiting (PONV) Past Psychological History: No Psychological Hx Reported Smoking Status: Former smoker Past Alcohol Use History: None Reported Past Drug Use History: None Reported - Past Family History Mother Family Medical History: No Reported History Father Family Medical History: Liver Disease Additional Family Medical History / Comment(s): Father was an alcoholic. He had liver cirrhosis. <Scooby Gerardo P - Last Filed: 09/17/18 21:13> General Exam Limitations: no limitations General appearance: alert, in no apparent distress Head exam: Present: atraumatic, normocephalic, normal inspection Eye exam: Present: normal appearance, PERRL, EOMI. Absent: scleral icterus, conjunctival injection, periorbital swelling ENT exam: Present: normal exam, normal oropharynx, mucous membranes moist, TM's normal bilaterally, normal external ear exam Neck exam: Present: normal inspection, full ROM. Absent: tenderness, meningismus, lymphadenopathy Respiratory exam: Present: normal lung sounds bilaterally. Absent: respiratory distress, wheezes, rales, rhonchi, stridor Cardiovascular Exam: Present: regular rate, normal rhythm, normal heart sounds. Absent: systolic murmur, diastolic murmur, rubs, gallop, clicks GI/Abdominal exam: Present: soft, normal bowel sounds. Absent: distended, tenderness, guarding, rebound, rigid Rectal exam: Present: normal rectal tone, bloody stool (Blood noted from rectum) External exam: Present: normal external exam (No vaginal bleeding present) Neurological exam: Present: alert, oriented X3, CN II-XII intact Psychiatric exam: Present: normal affect, normal mood <Scooby Gerardo P - Last Filed: 09/17/18 21:13> Course Vital Signs 09/17/18 09/17/18 09/17/18 18:31 20:25 20:37 Temperature 99.4 F Pulse Rate 99 98 98 Respiratory 22 Rate Blood Pressure 183/63 O2 Sat by Pulse 96 Oximetry Medical Decision Making - Lab Data Result diagrams: 09/17/18 18:50 09/17/18 18:50 <Mark Muniz - Last Filed: 09/17/18 20:58> - Lab Data Result diagrams: 09/17/18 18:50 09/17/18 18:50 <Scooby Gerardo - Last Filed: 09/17/18 21:13> - Medical Decision Making Patient reevaluated and reexamined by myself, Dr. Muniz. Patient resting comfortably in bed. Patient and family updated on results and plan. Case was discussed in detail with Dr. Penaloza, who will admit his patient. I do agree with PA findings. This includes diagnostic interpretation and treatment plan. Dr. Penaloza did request consult with Dr. Darling. (Mark Muniz) 73-year-old female presents for bright red blood per rectum times one day. Patient did have a knee surgery on Friday and started aspirin at that time, no other blood thinners. Patient had a colonoscopy about 2 years ago which apparently showed a polyp according to patient. Patient has never had this bleeding before. She is denying any abdominal pain. States she had a normal bowel movement earlier today but noticed the bleeding later. States she is wearing a pad because of the bleeding. On rectal exam I do notice blood coming from rectum however no big clots present at this time. No masses felt in the rectum. Hemoglobin is 10.7 which is a 3 point drop from about 1 month ago. CMP is unremarkable, sodium is 133 however patient given fluids. Stool occult blood was negative however I did visualize blood from the rectum. Patient was given Protonix. She will be admitted for further management. (Scooby Gerardo) - Lab Data Lab Results 09/17/18 09/17/18 09/17/18 Range/Units 18:50 18:50 18:50 WBC 12.2 H (3.8-10.6) k/uL RBC 3.54 L (3.80-5.40) m/uL Hgb 10.7 L (11.4-16.0) gm/dL Hct 32.4 L (34.0-46.0) % MCV 91.5 (80.0-100.0) fL MCH 30.3 (25.0-35.0) pg MCHC 33.1 (31.0-37.0) g/dL RDW 13.8 (11.5-15.5) % Plt Count 223 (150-450) k/uL Neutrophils % 76 % Lymphocytes % 15 % Monocytes % 5 % Eosinophils % 3 % Basophils % 1 % Neutrophils # 9.2 H (1.3-7.7) k/uL Lymphocytes # 1.8 (1.0-4.8) k/uL Monocytes # 0.6 (0-1.0) k/uL Eosinophils # 0.3 (0-0.7) k/uL Basophils # 0.1 (0-0.2) k/uL PT 9.7 (9.0-12.0) sec INR 0.9 (<1.2) APTT 22.8 (22.0-30.0) sec Sodium 133 L (137-145) mmol/L Potassium 3.8 (3.5-5.1) mmol/L Chloride 98 (98-107) mmol/L Carbon Dioxide 26 (22-30) mmol/L Anion Gap 9 mmol/L BUN 11 (7-17) mg/dL Creatinine 0.40 L (0.52-1.04) mg/dL Est GFR (CKD-EPI)AfAm >90 (>60 ml/min/1.73 sqM) Est GFR (CKD-EPI)NonAf >90 (>60 ml/min/1.73 sqM) Glucose 110 H (74-99) mg/dL Calcium 9.2 (8.4-10.2) mg/dL Total Bilirubin 1.2 (0.2-1.3) mg/dL AST 47 H (14-36) U/L ALT 39 (9-52) U/L Alkaline Phosphatase 62 (38-126) U/L Total Protein 6.2 L (6.3-8.2) g/dL Albumin 3.8 (3.5-5.0) g/dL Stool Occult Blood (Negative) Blood Type Blood Type Confirm Blood Type Recheck Antibody Screen Spec Expiration Date 09/17/18 09/17/18 09/17/18 Range/Units 18:50 19:37 20:00 WBC (3.8-10.6) k/uL RBC (3.80-5.40) m/uL Hgb (11.4-16.0) gm/dL Hct (34.0-46.0) % MCV (80.0-100.0) fL MCH (25.0-35.0) pg MCHC (31.0-37.0) g/dL RDW (11.5-15.5) % Plt Count (150-450) k/uL Neutrophils % % Lymphocytes % % Monocytes % % Eosinophils % % Basophils % % Neutrophils # (1.3-7.7) k/uL Lymphocytes # (1.0-4.8) k/uL Monocytes # (0-1.0) k/uL Eosinophils # (0-0.7) k/uL Basophils # (0-0.2) k/uL PT (9.0-12.0) sec INR (<1.2) APTT (22.0-30.0) sec Sodium (137-145) mmol/L Potassium (3.5-5.1) mmol/L Chloride (98-107) mmol/L Carbon Dioxide (22-30) mmol/L Anion Gap mmol/L BUN (7-17) mg/dL Creatinine (0.52-1.04) mg/dL Est GFR (CKD-EPI)AfAm (>60 ml/min/1.73 sqM) Est GFR (CKD-EPI)NonAf (>60 ml/min/1.73 sqM) Glucose (74-99) mg/dL Calcium (8.4-10.2) mg/dL Total Bilirubin (0.2-1.3) mg/dL AST (14-36) U/L ALT (9-52) U/L Alkaline Phosphatase (38-126) U/L Total Protein (6.3-8.2) g/dL Albumin (3.5-5.0) g/dL Stool Occult Blood Negative (Negative) Blood Type A Positive Blood Type Confirm A Positive Blood Type Recheck CABO Indicated Antibody Screen NEGATIVE Spec Expiration Date 09/20/2018 - 2350 Disposition <Mark Muniz - Last Filed: 09/17/18 20:58> Is patient prescribed a controlled substance at d/c from ED?: No Time of Disposition: 20:52 <Scooby Gerardo - Last Filed: 09/17/18 21:13> Clinical Impression: Hematochezia Disposition: ADMITTED IP TO THIS HOSP Condition: Fair Referrals: Rinku Penaloza DO [Primary Care Provider] - 1-2 days
[2018-09-17] MEDS ORDERED: NALOXONE 0.4 MG/ML 1 ML VIAL IV PRN (20:54)
[2018-09-17] MEDS: PANTOPRAZOLE 40 MG/10 ML VIAL IV SCH (22:04)
[2018-09-17] MEDS: SODIUM CHLORIDE 0.9% 1,000 ML IV SCH (22:25)
[2018-09-17] MEDS ORDERED: NITROGLYCERIN SL TABS 0.4 MG TAB SUBLINGUAL PRN (23:56)
[2018-09-17] MEDS ORDERED: ALPRAZolam 0.25 MG TAB PO PRN (23:56)
[2018-09-17] MEDS ORDERED: traMADol 50 MG TAB PO PRN (23:56)
[2018-09-17] MEDS ORDERED: ALBUTEROL NEBULIZED 2.5 MG/3 ML INHALATION PRN (23:56)
[2018-09-18] MEDS: LOSARTAN 25 MG TAB PO SCH ×2 (00:22→20:37)
[2018-09-18] MEDS: ATORVASTATIN 20 MG TAB PO SCH ×2 (00:22→20:37)
[2018-09-18] MEDS: MONTELUKAST 10 MG TAB PO SCH ×2 (00:22→20:38)
[2018-09-18] MEDS: METOPROLOL TARTRATE 25 MG TAB PO SCH ×3 (00:22→20:38)
[2018-09-18] MEDS: LEVOTHYROXINE 137 MCG TAB PO SCH (06:06)
[2018-09-18] MEDS: SYMBICORT 160-4.5 MCG INHALER INHALATION SCH ×2 (08:45→19:38)
[2018-09-18] MEDS: PANTOPRAZOLE 40 MG/10 ML VIAL IV SCH (08:54)
[2018-09-18] MEDS ORDERED: DICYCLOMINE 20 MG TAB PO PRN (09:00)
[2018-09-18 09:12] LABS: HCT 29.1 % (34.0-46.0); HGB 9.5 gm/dL (11.4-16.0); MCH 30.6 pg (25.0-35.0); MCHC 32.5 g/dL (31.0-37.0); Platelet Count 211 k/uL (150-450); RBC 3.09 m/uL (3.80-5.40); RDW 13.7 % (11.5-15.5); WBC 9.1 k/uL (3.8-10.6)
[2018-09-18 09:21] LABS: Anion Gap 7 mmol/L; Blood Urea Nitrogen 9 mg/dL (7-17); Calcium 8.5 mg/dL (8.4-10.2); Carbon Dioxide 25 mmol/L (22-30); Chloride 104 mmol/L (98-107); Glucose 139 mg/dL (74-99); Potassium 3.4 mmol/L (3.5-5.1); Sodium 136 mmol/L (137-145)
[2018-09-18] MEDS: SENNOSIDES-DOCUSATE SODIUM 1 EACH TAB PO SCH ×2 (09:42→20:40)
[2018-09-18] MEDS: CHOLECALCIFEROL 1,000 UNIT TAB PO SCH (09:42)
[2018-09-18] MEDS: MULTIVITAMINS, THERA 1 EACH TAB PO SCH (09:42)
[2018-09-18] MEDS: cycloSPORINE 0.05% OPHTH 0.4 ML DROPERETTE BOTH EYES SCH ×2 (09:48→20:37)
[2018-09-18] MEDS: ISOSORBIDE MONONITRATE ER 30 MG TAB.ER.24H PO SCH (09:49)
--- NOTE | 2018-09-18 10:42 | P.CNOR ---
History of Present Illness - [facility] Consult date: 09/18/18 History of present illness: This is a 73-year-old female who is status post total left knee arthroplasty on 09/14/2018. She is discharged to home on 09/15/2018 in good condition. She states that she developed bright red rectal bleeding yesterday. She presented to the emergency department for evaluation with concern for GI bleed. She is admitted for further workup. We're consulted for orthopedic evaluation of her left knee. She does have increased swelling and a blister formed at the base of her incision. She has been on aspirin 325 mg daily up until today. Anticoagulation has been discontinued at this time. Past Medical History Past Medical History: Asthma, Cancer, Chest Pain / Angina, COPD, Hyperlipidemia, Hypertension, Osteoarthritis (OA), Thyroid Disorder Additional Past Medical History / Comment(s): HYPOTHYROID. Hx skin cancer on nose. IBS. History of Any Multi-Drug Resistant Organisms: None Reported Past Surgical History: Appendectomy, Bladder Surgery, Hysterectomy, Joint Replacement, Orthopedic Surgery, Tonsillectomy Additional Past Surgical History / Comment(s): FACIAL SURGERY/RECONSTRUCTION POST INJURY. BILATERAL CATARACTS. Left shoulder replacement, bilateral shoulder surgery. Skin cancer on nose removed. Past Anesthesia/Blood Transfusion Reactions: Postoperative Nausea & Vomiting (PONV) Past Psychological History: No Psychological Hx Reported Smoking Status: Former smoker Past Alcohol Use History: None Reported Past Drug Use History: None Reported - Past Family History Mother Family Medical History: No Reported History Father Family Medical History: Liver Disease Additional Family Medical History / Comment(s): Father was an alcoholic. He had liver cirrhosis. Medications and Allergies Home Medications Medication Instructions Recorded Confirmed Type Fluticasone/Salmeterol [Advair Hfa 2 puff INHALATION RT-BID 09/14/13 09/17/18 History 115-21 Mcg Inhaler] Levothyroxine Sodium [Synthroid] 137 mcg PO QAM 09/14/13 09/17/18 History Montelukast [Singulair] 10 mg PO HS 09/14/13 09/17/18 History cycloSPORINE [Restasis] 1 drop BOTH EYES BID 09/14/13 09/17/18 History Cholecalciferol [Vitamin D3 (25 1,000 unit PO DAILY 09/16/17 09/17/18 History Mcg = 1000 Iu)] Multivitamins, Thera [Multivitamin 1 tab PO DAILY 09/16/17 09/17/18 History (formulary)] ALPRAZolam [Xanax] 0.25 mg PO Q8H PRN 05/07/18 09/17/18 History Albuterol Inhaler [Ventolin Hfa 1 - 2 puff INHALATION RT-Q6H PRN 05/07/18 09/17/18 History Inhaler] Nitroglycerin Sl Tabs [Nitrostat] 0.4 mg SUBLINGUAL Q5M PRN 05/07/18 09/17/18 History Dicyclomine [Bentyl] 20 mg PO QID PRN 06/28/18 09/17/18 History Atorvastatin [Lipitor] 20 mg PO HS #30 tab 06/29/18 09/17/18 Rx Isosorbide Mononitrate ER [Imdur] 30 mg PO QAM 09/07/18 09/17/18 History Losartan [Cozaar] 25 mg PO HS 09/07/18 09/17/18 History Metoprolol Tartrate [Lopressor] 12.5 mg PO BID 09/07/18 09/17/18 History Aspirin [Adult Low Dose Aspirin EC] 81 mg PO DAILY #1 tablet.dr 09/15/18 09/17/18 Rx HYDROcodone/APAP 5-325MG [[place] 1 - 2 each PO Q4-6H PRN #50 tab 09/15/18 09/17/18 Rx 5-325] Rivaroxaban [Xarelto] 10 mg PO DAILY #5 tab 09/15/18 09/17/18 Rx Sennosides-Docusate Sodium 1 tab PO BID #60 tablet 09/15/18 09/17/18 Rx [Senokot-S] traMADol HCL [Ultram] 50 mg PO Q6HR PRN #28 tab 09/15/18 09/17/18 Rx Allergies Allergy/AdvReac Type Severity Reaction Status Date / Time ciprofloxacin [From Cipro] Allergy Unknown Verified 09/17/18 19:00 hydrocodone bitartrate Allergy Anaphylaxis Verified 09/17/18 19:00 [From Vicodin] levofloxacin [From Levaquin] Allergy Unknown Verified 09/17/18 19:00 Physical Examination This is a pleasant 73-year-old female in no acute distress. She is alert and oriented 3. Exam of the head neck reveal no obvious deformity. She has full cervical spine motion without difficulty or pain. Exam the upper extremities reveals no deformity. Exam is unremarkable. Exam the lower extremities reveals significant swelling and ecchymosis to the left leg from about mid thigh down to the foot and ankle. There is a quarter- sized blister at the base of her knee incision. There is no active drainage from the incision or the blister. The calf is tight on palpation. There is min imal calf pain with palpation. Neurovascular status to the lower extremities grossly intact. Results - Labs Labs: Abnormal Lab Results - Last 24 Hours (Table) 09/17/18 09/17/18 09/18/18 Range/Units 18:50 18:50 08:12 WBC 12.2 H (3.8-10.6) k/uL RBC 3.54 L 3.09 L (3.80-5.40) m/uL Hgb 10.7 L 9.5 L (11.4-16.0) gm/dL Hct 32.4 L 29.1 L (34.0-46.0) % Neutrophils # 9.2 H (1.3-7.7) k/uL Sodium 133 L (137-145) mmol/L Potassium (3.5-5.1) mmol/L Creatinine 0.40 L (0.52-1.04) mg/dL Glucose 110 H (74-99) mg/dL AST 47 H (14-36) U/L Total Protein 6.2 L (6.3-8.2) g/dL 09/18/18 Range/Units 08:12 WBC (3.8-10.6) k/uL RBC (3.80-5.40) m/uL Hgb (11.4-16.0) gm/dL Hct (34.0-46.0) % Neutrophils # (1.3-7.7) k/uL Sodium 136 L (137-145) mmol/L Potassium 3.4 L (3.5-5.1) mmol/L Creatinine 0.37 L (0.52-1.04) mg/dL Glucose 139 H (74-99) mg/dL AST (14-36) U/L Total Protein (6.3-8.2) g/dL H & H 09/17/18 09/18/18 Range/Units 18:50 08:12 Hgb 10.7 L 9.5 L (11.4-16.0) gm/dL Hct 32.4 L 29.1 L (34.0-46.0) % Coagulation 09/17/18 Range/Units 18:50 INR 0.9 (<1.2) Result Diagrams: 09/18/18 08:12 09/18/18 08:12 Assessment and Plan (1) Hematochezia Current Visit: Yes Status: Acute Code(s): K92.1 - MELENA SNOMED Code(s): 120670952 (2) Osteoarthritis of left knee Current Visit: No Status: Acute Code(s): M17.12 - UNILATERAL PRIMARY OSTEOARTHRITIS, LEFT KNEE SNOMED Code(s): 850052110172444 (3) Status post total left knee replacement Current Visit: No Status: Acute Code(s): Z96.652 - PRESENCE OF LEFT ARTIFICIAL KNEE JOINT SNOMED Code(s): 4331249041878 Plan: The clinical findings are discussed with the patient. It is recommended she go back into a thigh-high compression stocking. I've ordered a venous Doppler for further evaluation to rule out DVT. The patient was evaluated by Dr. Newby as well today. We will leave anticoagulation up to internal medicine. We will continue to follow.
--- NOTE | 2018-09-18 11:19 | US ---
EXAMINATION TYPE: US venous doppler duplex LE LT DATE OF EXAM: 09/18/2018 11:06 AM COMPARISON: None CLINICAL HISTORY: calf pain and swelling. Patient states having knee surgery on Friday. No hx of blo od clots. Not on blood thinners. Bruising. SIDE PERFORMED: Left TECHNIQUE: The lower extremity deep venous system is examined utilizing real time linear array sonog polina with graded compression, doppler sonography and color-flow sonography. VESSELS IMAGED: External Iliac Vein (EIV) Common Femoral Vein Deep Femoral Vein Greater Saphenous Vein * Femoral Vein Popliteal Vein Small Saphenous Vein * Proximal Calf Veins (* superficial vessels) Left Leg: Negative for DVT IMPRESSION: 1. No diagnostic evidence of DVT as visualized.
[2018-09-18] MEDS: SODIUM CHLORIDE 0.9% 1,000 ML IV SCH ×2 (11:52→23:17)
[2018-09-18] MEDS ORDERED: Potassium Replacement Protocol 1 EACH MISC MISCELLANE PRN (12:57)
--- NOTE | 2018-09-18 15:32 | P.GSCN ---
History of Present Illness Consult date: 09/18/18 Reason for Consult: GI bleed History of present illness: This is a 73-year-old female who presented to the emergency room cleats of rectal bleeding. Patient underwent replacement of left knee 5 days ago. Patient states that she had some mild abdominal pain and rectal bleeding yesterday. She describes blood dripping into the 12 viable or onto a pad. Patient's had no further rectal bleeding since she's been admitted to the hospital. She has a known history of hemorrhoids. Past Medical History Past Medical History: Asthma, Cancer, Chest Pain / Angina, COPD, Hyperlipidemia, Hypertension, Osteoarthritis (OA), Thyroid Disorder Additional Past Medical History / Comment(s): HYPOTHYROID. Hx skin cancer on nose. IBS. History of Any Multi-Drug Resistant Organisms: None Reported Past Surgical History: Appendectomy, Bladder Surgery, Hysterectomy, Joint Replacement, Orthopedic Surgery, Tonsillectomy Additional Past Surgical History / Comment(s): FACIAL SURGERY/RECONSTRUCTION POST INJURY. BILATERAL CATARACTS. Left shoulder replacement, bilateral shoulder surgery. Skin cancer on nose removed. Past Anesthesia/Blood Transfusion Reactions: Postoperative Nausea & Vomiting (P ONV) Past Psychological History: No Psychological Hx Reported Smoking Status: Former smoker Past Alcohol Use History: None Reported Past Drug Use History: None Reported - Past Family History Mother Family Medical History: No Reported History Father Family Medical History: Liver Disease Additional Family Medical History / Comment(s): Father was an alcoholic. He had liver cirrhosis. Medications and Allergies Home Medications Medication Instructions Recorded Confirmed Type Fluticasone/Salmeterol [Advair Hfa 2 puff INHALATION RT-BID 09/14/13 09/17/18 History 115-21 Mcg Inhaler] Levothyroxine Sodium [Synthroid] 137 mcg PO QAM 09/14/13 09/17/18 History Montelukast [Singulair] 10 mg PO HS 09/14/13 09/17/18 History cycloSPORINE [Restasis] 1 drop BOTH EYES BID 09/14/13 09/17/18 History Cholecalciferol [Vitamin D3 (25 1,000 unit PO DAILY 09/16/17 09/17/18 History Mcg = 1000 Iu)] Multivitamins, Thera [Multivitamin 1 tab PO DAILY 09/16/17 09/17/18 History (formulary)] ALPRAZolam [Xanax] 0.25 mg PO Q8H PRN 05/07/18 09/17/18 History Albuterol Inhaler [Ventolin Hfa 1 - 2 puff INHALATION RT-Q6H PRN 05/07/18 09/17/18 History Inhaler] Nitroglycerin Sl Tabs [Nitrostat] 0.4 mg SUBLINGUAL Q5M PRN 05/07/18 09/17/18 History Dicyclomine [Bentyl] 20 mg PO QID PRN 06/28/18 09/17/18 History Atorvastatin [Lipitor] 20 mg PO HS #30 tab 06/29/18 09/17/18 Rx Isosorbide Mononitrate ER [Imdur] 30 mg PO QAM 09/07/18 09/17/18 History Losartan [Cozaar] 25 mg PO HS 09/07/18 09/17/18 History Metoprolol Tartrate [Lopressor] 12.5 mg PO BID 09/07/18 09/17/18 History Aspirin [Adult Low Dose Aspirin EC] 81 mg PO DAILY #1 tablet. 09/15/18 09/17/18 Rx HYDROcodone/APAP 5-325MG [[place] 1 - 2 each PO Q4-6H PRN #50 tab 09/15/18 09/17/18 Rx 5-325] Rivaroxaban [Xarelto] 10 mg PO DAILY #5 tab 09/15/18 09/17/18 Rx Sennosides-Docusate Sodium 1 tab PO BID #60 tablet 09/15/18 09/17/18 Rx [Senokot-S] traMADol HCL [Ultram] 50 mg PO Q6HR PRN #28 tab 09/15/18 09/17/18 Rx Allergies Allergy/AdvReac Type Severity Reaction Status Date / Time ciprofloxacin [From Cipro] Allergy Unknown Verified 09/17/18 19:00 hydrocodone bitartrate Allergy Anaphylaxis Verified 09/17/18 19:00 [From Vicodin] levofloxacin [From Levaquin] Allergy Unknown Verified 09/17/18 19:00 Surgical - Exam Vital Signs Temp Pulse Resp BP Pulse Ox 99.4 F 99 22 183/63 96 09/17/18 18:31 09/17/18 18:31 09/17/18 18:31 09/17/18 18:31 09/17/18 18:31 - General well developed, well nourished, no distress - Eyes PERRL - ENT normal pinna - Neck no masses - Respiratory normal expansion - Cardiovascular Rhythm: regular - Abdomen Abdomen: soft, non tender - Musculoskeletal Large left hematoma near the left knee Results - Labs 09/18/18 08:12 09/18/18 08:12 Abnormal Lab Results - Last 24 Hours (Table) 09/17/18 09/17/18 09/18/18 Range/Units 18:50 18:50 08:12 WBC 12.2 H (3.8-10.6) k/uL RBC 3.54 L 3.09 L (3.80-5.40) m/uL Hgb 10.7 L 9.5 L (11.4-16.0) gm/dL Hct 32.4 L 29.1 L (34.0-46.0) % Neutrophils # 9.2 H (1.3-7.7) k/uL Sodium 133 L (137-145) mmol/L Potassium (3.5-5.1) mmol/L Creatinine 0.40 L (0.52-1.04) mg/dL Glucose 110 H (74-99) mg/dL AST 47 H (14-36) U/L Total Protein 6.2 L (6.3-8.2) g/dL 09/18/18 Range/Units 08:12 WBC (3.8-10.6) k/uL RBC (3.80-5.40) m/uL Hgb (11.4-16.0) gm/dL Hct (34.0-46.0) % Neutrophils # (1.3-7.7) k/uL Sodium 136 L (137-145) mmol/L Potassium 3.4 L (3.5-5.1) mmol/L Creatinine 0.37 L (0.52-1.04) mg/dL Glucose 139 H (74-99) mg/dL AST (14-36) U/L Total Protein (6.3-8.2) g/dL Diabetes panel 09/17/18 09/18/18 Range/Units 18:50 08:12 Sodium 133 L 136 L (137-145) mmol/L Potassium 3.8 3.4 L (3.5-5.1) mmol/L Chloride 98 104 (98-107) mmol/L Carbon Dioxide 26 25 (22-30) mmol/L BUN 11 9 (7-17) mg/dL Creatinine 0.40 L 0.37 L (0.52-1.04) mg/dL Glucose 110 H 139 H (74-99) mg/dL Calcium 9.2 8.5 (8.4-10.2) mg/dL AST 47 H (14-36) U/L ALT 39 (9-52) U/L Alkaline Phosphatase 62 (38-126) U/L Total Protein 6.2 L (6.3-8.2) g/dL Albumin 3.8 (3.5-5.0) g/dL Calcium panel 09/17/18 09/18/18 Range/Units 18:50 08:12 Calcium 9.2 8.5 (8.4-10.2) mg/dL Albumin 3.8 (3.5-5.0) g/dL Pituitary panel 09/17/18 09/18/18 Range/Units 18:50 08:12 Sodium 133 L 136 L (137-145) mmol/L Potassium 3.8 3.4 L (3.5-5.1) mmol/L Chloride 98 104 (98-107) mmol/L Carbon Dioxide 26 25 (22-30) mmol/L BUN 11 9 (7-17) mg/dL Creatinine 0.40 L 0.37 L (0.52-1.04) mg/dL Glucose 110 H 139 H (74-99) mg/dL Calcium 9.2 8.5 (8.4-10.2) mg/dL Adrenal panel 09/17/18 09/18/18 Range/Units 18:50 08:12 Sodium 133 L 136 L (137-145) mmol/L Potassium 3.8 3.4 L (3.5-5.1) mmol/L Chloride 98 104 (98-107) mmol/L Carbon Dioxide 26 25 (22-30) mmol/L BUN 11 9 (7-17) mg/dL Creatinine 0.40 L 0.37 L (0.52-1.04) mg/dL Glucose 110 H 139 H (74-99) mg/dL Calcium 9.2 8.5 (8.4-10.2) mg/dL Total Bilirubin 1.2 (0.2-1.3) mg/dL AST 47 H (14-36) U/L ALT 39 (9-52) U/L Alkaline Phosphatase 62 (38-126) U/L Total Protein 6.2 L (6.3-8.2) g/dL Albumin 3.8 (3.5-5.0) g/dL Assessment and Plan Assessment: Anemia. Unsure if this is related to her recent left knee replacement. Lower GI bleed most likely due to hemorrhoidal bleeding. Patient will be observed. If she has persistent anemia or more evidence of GI bleed she will undergo upper and lower endoscopy
[2018-09-18] MEDS: POTASSIUM CHLORIDE ER 20 MEQ TAB.ER PO SCH ×2 (16:25→18:13)
--- NOTE | 2018-09-18 17:37 | P.HPIM ---
History of Present Illness H&P Date: 09/18/18 this is a 73-year-old femalepast medical history of COPD, hypertension, hyperlipidemia, recent total left knee arthroplasty,09/14/2018, admitted with complaints of rectal bleeding. Patient had been on aspirin 325 mg daily as per orthopedic anticoagulation protocol. Reports she had been straining,bearing down while attempting a bowel movement,and passed some bright red blood.hemoglobin on admission was 10.7( 10.9 on 09/15/18 at discharge, with a 3 point drop from a month ago.)patient has had no further bleeding.no melena. Reports normal bowel movement this morning with no blood, just mucousy.denies nausea vomiting. states her last colonoscopy was approximately [address] Ocasio-reported as normal. Denies abdominal pain.denies chest pain, palpitations or increasing shortness of breath.denies lightheadedness dizziness or focal deficits.Anticoagulation discontinued. Receiving gentle IV fluid hydration, PPI. Stool for occult blood negative. Review of Systems ROS Statement: Those systems with pertinent positive or pertinent negative responses have been documented in the HPI. ROS Other: All systems not noted in ROS Statement are negative. Past Medical History Past Medical History: Asthma, Cancer, Chest Pain / Angina, COPD, Hyperlipidemia, Hypertension, Osteoarthritis (OA), Thyroid Disorder Additional Past Medical History / Comment(s): HYPOTHYROID. Hx skin cancer on nose. IBS. History of Any Multi-Drug Resistant Organisms: None Reported Past Surgical History: Appendectomy, Bladder Surgery, Hysterectomy, Joint Replacement, Orthopedic Surgery, Tonsillectomy Additional Past Surgical History / Comment(s): FACIAL SURGERY/RECONSTRUCTION POST INJURY. BILATERAL CATARACTS. Left shoulder replacement, bilateral shoulder surgery. Skin cancer on nose removed. Past Anesthesia/Blood Transfusion Reactions: Postoperative Nausea & Vomiting (PONV) Past Psychological History: No Psychological Hx Reported Smoking Status: Former smoker Past Alcohol Use History: None Reported Past Drug Use History: None Reported - Past Family History Mother Family Medical History: No Reported History Father Family Medical History: Liver Disease Additional Family Medical History / Comment(s): Father was an alcoholic. He had liver cirrhosis. Medications and Allergies Home Medications Medication Instructions Recorded Confirmed Type Fluticasone/Salmeterol [Advair Hfa 2 puff INHALATION RT-BID 09/14/13 09/17/18 History 115-21 Mcg Inhaler] Levothyroxine Sodium [Synthroid] 137 mcg PO QAM 09/14/13 09/17/18 History Montelukast [Singulair] 10 mg PO HS 09/14/13 09/17/18 History cycloSPORINE [Restasis] 1 drop BOTH EYES BID 09/14/13 09/17/18 History Cholecalciferol [Vitamin D3 (25 1,000 unit PO DAILY 09/16/17 09/17/18 History Mcg = 1000 Iu)] Multivitamins, Thera [Multivitamin 1 tab PO DAILY 09/16/17 09/17/18 History (formulary)] ALPRAZolam [Xanax] 0.25 mg PO Q8H PRN 05/07/18 09/17/18 History Albuterol Inhaler [Ventolin Hfa 1 - 2 puff INHALATION RT-Q6H PRN 05/07/18 09/17/18 History Inhaler] Nitroglycerin Sl Tabs [Nitrostat] 0.4 mg SUBLINGUAL Q5M PRN 05/07/18 09/17/18 History Dicyclomine [Bentyl] 20 mg PO QID PRN 06/28/18 09/17/18 History Atorvastatin [Lipitor] 20 mg PO HS #30 tab 06/29/18 09/17/18 Rx Isosorbide Mononitrate ER [Imdur] 30 mg PO QAM 09/07/18 09/17/18 History Losartan [Cozaar] 25 mg PO HS 09/07/18 09/17/18 History Metoprolol Tartrate [Lopressor] 12.5 mg PO BID 09/07/18 09/17/18 History Aspirin [Adult Low Dose Aspirin EC] 81 mg PO DAILY #1 tablet. 09/15/18 09/17/18 Rx HYDROcodone/APAP 5-325MG [[place] 1 - 2 each PO Q4-6H PRN #50 tab 09/15/18 09/17/18 Rx 5-325] Rivaroxaban [Xarelto] 10 mg PO DAILY #5 tab 09/15/18 09/17/18 Rx Sennosides-Docusate Sodium 1 tab PO BID #60 tablet 09/15/18 09/17/18 Rx [Senokot-S] traMADol HCL [Ultram] 50 mg PO Q6HR PRN #28 tab 09/15/18 09/17/18 Rx Allergies Allergy/AdvReac Type Severity Reaction Status Date / Time ciprofloxacin [From Cipro] Allergy Unknown Verified 09/17/18 19:00 hydrocodone bitartrate Allergy Anaphylaxis Verified 09/17/18 19:00 [From Vicodin] levofloxacin [From Levaquin] Allergy Unknown Verified 09/17/18 19:00 Physical Exam Vitals: Vital Signs Temp Pulse Pulse Resp BP BP Pulse Ox 09/18/18 12:02 80 09/18/18 11:52 80 09/18/18 07:00 98.8 F 84 16 135/74 94 L 09/18/18 01:02 98.9 F 80 16 133/73 93 L 09/17/18 22:50 98.2 F 100 20 176/80 94 L 09/17/18 22:01 98.2 F 97 20 157/67 94 L 09/17/18 20:37 98 09/17/18 20:25 98 09/17/18 18:31 99.4 F 99 22 183/63 96 Intake and Output 09/17/18 09/18/18 09/18/18 22:59 06:59 14:59 Intake Total 500 Balance 500 Intake: Amount of Fluid Infused ( 500 ml) Other: Voiding Method Toilet # Voids 1 2 2 # Bowel Movements 1 Weight 83.915 kg VITAL SIGNS: As above GENERAL: Sitting up in bed, no acute distress HEENT: Conjunctivae pale. eyes normal. Oral mucosa moist NECK: No JVD. No thyroid enlargement. No LNs CARDIOVASCULAR: S1, S2 regular. No murmur RESPIRATION: Breath sounds diminished in the bases. No rhonchi or crackles. No bronchial breathing. ABDOMEN: Soft, nontender . No guarding. no masses palpable. Bowel sounds heard. LEGS: Left knee warm, will blister at the incision site, with significant bruising, edema,mid thigh to ankle, no drainage.Pos. DP pulse PSYCHIATRY: Alert and oriented -3, mood and affect normal. NERVOUS SYSTEM: Cranial N 2-12 grossly normal. Moves all 4 limbs. Diffuse weakness No focal deficits. No sensory deficit. Skin: no lesions no rash Results CBC & Chem 7: 09/18/18 08:12 09/18/18 08:12 Labs: Abnormal Lab Results - Last 24 Hours (Table) 09/17/18 09/17/18 09/18/18 Range/Units 18:50 18:50 08:12 WBC 12.2 H (3.8-10.6) k/uL RBC 3.54 L 3.09 L (3.80-5.40) m/uL Hgb 10.7 L 9.5 L (11.4-16.0) gm/dL Hct 32.4 L 29.1 L (34.0-46.0) % Neutrophils # 9.2 H (1.3-7.7) k/uL Sodium 133 L (137-145) mmol/L Potassium (3.5-5.1) mmol/L Creatinine 0.40 L (0.52-1.04) mg/dL Glucose 110 H (74-99) mg/dL AST 47 H (14-36) U/L Total Protein 6.2 L (6.3-8.2) g/dL 09/18/18 Range/Units 08:12 WBC (3.8-10.6) k/uL RBC (3.80-5.40) m/uL Hgb (11.4-16.0) gm/dL Hct (34.0-46.0) % Neutrophils # (1.3-7.7) k/uL Sodium 136 L (137-145) mmol/L Potassium 3.4 L (3.5-5.1) mmol/L Creatinine 0.37 L (0.52-1.04) mg/dL Glucose 139 H (74-99) mg/dL AST (14-36) U/L Total Protein (6.3-8.2) g/dL Thrombosis Risk Factor Assmnt - Choose All That Apply Any of the Below Risk Factors Present?: Yes Each Factor Represents 1 point: Abnormal pulmonary function (COPD), History of prior major surgery (<1month), Obesity (BMI >25) Other Risk Factors: No Other congenital or acquired thrombophilia - If yes, enter type in comment: No Thrombosis Risk Factor Assessment Total Risk Factor Score: 3 Thrombosis Risk Factor Assessment Level: Moderate Risk Assessment and Plan Assessment: -hematochezia, possibly hemorrhoids -osteoarthritisof left knee,recent total left knee arthroplasty,09/14/2018 -COPD, stable -Hypertension -Hyperlipidemia -Hypothyroid Plan: Continue on current medication regime ,monitoring and symptomatic treatment. PPI ordered with ASA discontinued.Home meds have been reviewed and resumed.Doppler ordered for rule out DVT. Orthopedic surgery and Gen. surgery consulted.close monitoring of CBC with repeat labs ordered for a.m.further recommendations to follow. The impression and plan of care has been dictated as directed. : I performed a history and examination of this patient, discussed the same with the dictator. I agree with the dictator's note ,documented as a scribe. Any additional findings or plans will be noted. Time taken: 35 minutes
[2018-09-18] MEDS ORDERED: POTASSIUM CHLORIDE ER 20 MEQ TAB.ER PO STA (22:15)
[2018-09-19] MEDS: ACETAMINOPHEN TAB 325 MG TAB PO PRN ×2 (03:08→12:35)
[2018-09-19] MEDS: LEVOTHYROXINE 137 MCG TAB PO SCH (06:01)
[2018-09-19 07:31] LABS: Basophils # (A) 0.1 k/uL (0-0.2); Basophils % (A) 1 %; Eosinophils # (A) 0.7 k/uL (0-0.7); Eosinophils % (A) 7 %; HCT 29.1 % (34.0-46.0); HGB 9.5 gm/dL (11.4-16.0); Lymphocytes # (A) 1.8 k/uL (1.0-4.8); Lymphocytes % (A) 20 %; MCH 30.4 pg (25.0-35.0); MCHC 32.5 g/dL (31.0-37.0); MCV 93.7 fL (80.0-100.0); Mean Platelet Volume 7.5; Monocytes # (A) 0.5 k/uL (0-1.0); Monocytes % (A) 5 %; Neutrophils # (A) 5.8 k/uL (1.3-7.7); Neutrophils % (A) 65 %; Platelet Count 224 k/uL (150-450); RBC 3.11 m/uL (3.80-5.40); RDW 14.5 % (11.5-15.5); WBC 8.9 k/uL (3.8-10.6)
[2018-09-19 07:43] LABS: Anion Gap 4 mmol/L; Blood Urea Nitrogen 12 mg/dL (7-17); Calcium 8.6 mg/dL (8.4-10.2); Carbon Dioxide 26 mmol/L (22-30); Chloride 108 mmol/L (98-107); Glucose 96 mg/dL (74-99); Potassium 4.1 mmol/L (3.5-5.1); Sodium 138 mmol/L (137-145)
[2018-09-19] MEDS: METOPROLOL TARTRATE 25 MG TAB PO SCH (07:55)
[2018-09-19] MEDS: CHOLECALCIFEROL 1,000 UNIT TAB PO SCH (07:57)
[2018-09-19] MEDS: ISOSORBIDE MONONITRATE ER 30 MG TAB.ER.24H PO SCH (07:57)
[2018-09-19] MEDS: SENNOSIDES-DOCUSATE SODIUM 1 EACH TAB PO SCH (07:58)
[2018-09-19] MEDS: cycloSPORINE 0.05% OPHTH 0.4 ML DROPERETTE BOTH EYES SCH (07:58)
[2018-09-19] MEDS: PANTOPRAZOLE 40 MG/10 ML VIAL IV SCH (07:58)
[2018-09-19] MEDS: MULTIVITAMINS, THERA 1 EACH TAB PO SCH (07:58)
[2018-09-19 08:06] VITALS: BP 167/73; PULSE 78; RESP 17; TEMP 97.6
[2018-09-19] MEDS: SYMBICORT 160-4.5 MCG INHALER INHALATION SCH (08:35)
--- NOTE | 2018-09-19 09:01 | P.PN ---
Progress Note - Text Progress Note Date: 09/19/18 The patient is resting comfortably in bed. She has had no further GI bleed. Hemoglobin stable at 9.5. On exam her vital signs show grams soft. No significant tenderness. Postoperative anemia after left knee replacement. There is significant hematoma of the left lower extremity. Patient shows no active GI bleed. She more than likely had a small hemorrhoidal bleed at the time of her presentation to the emergency room. A she'll be observed. She'll most likely be discharged home today.
[2018-09-19] MEDS: SODIUM CHLORIDE 0.9% 1,000 ML IV SCH (13:50)
--- NOTE | 2018-09-19 22:31 | DS ---
DISCHARGE SUMMARY DATE OF SERVICE: 09/19/2018 I am covering for Dr. Penaloza. FINAL DIAGNOSES: 1. Hematochezia, possibly hemorrhoids. 2. Anemia possibly from blood loss after knee surgery. 3. History of degenerative joint disease and recent left total knee arthroplasty. 4. Chronic obstructive pulmonary disease. 5. Hypertension. 6. Hyperlipidemia. 7. Hypothyroidism. DISCHARGE DISPOSITION: The patient is being discharged in stable condition with guarded prognosis. HISTORY OF PRESENT ILLNESS: This 73-year-old woman with a past medical history of multiple medical problems was admitted with hematochezia. The patient was seen by Dr. Darling and recommended outpatient followup. Otherwise hemoglobin was found to be stable at 9.5. No active bleeding was noted. Orthopedic surgery saw the patient and hematoma was noted on the left leg. Overall patient made significant improvement. The patient being discharged in stable condition with guarded prognosis. On exam, vitals signs are stable. Cardiovascular: S1, S2 muffled. Leg status post left knee arthroscopy. Labs are as mentioned. Hemoglobin 9.5. DISCHARGE MEDICATIONS AND INSTRUCTIONS: 1. Diet is cardiac diet. 2. Activity limited until followup. 3. Follow up with Dr. Penaloza in 2-3 days. 4. Follow up with Orthopedic surgery as advised. 5. Hold Xarelto. 6. Start aspirin after 1 week once he is stable. The rest of the medications are: 1. Advair HFA 2 puffs b.i.d. 2. Bentyl 20 mg q.i.d. p.r.n. 3. Cozaar 25 mg q.h.s. 4. Imdur 30 mg q.a.m. 5. Lopressor 12.5 mg p.o. b.i.d. 6. Multivitamins 1 p.o. daily. 7. Nitrostat p.r.n. 8. Restasis 1 drop b.i.d. 9. Singulair 10 mg q.h.s. 10.Synthroid 137 mcg q.a.m. 11.Ventolin HFA 1-2 puffs q.6h p.r.n. 12.Vitamin D 3000 daily. 13.Xanax 0.5 q.8h p.r.n. 14.Aspirin as mentioned earlier. 15.Lipitor 20 mg p.o. q.h.s. 16.Is[place] 5 mg q.6h p.r.n. 17.Senokot-S 1 p.o. b.i.d. 18.Ultram 50 mg q.6h p.r.n. Follow up with Dr. Darling as recommended. MMODL / IJN: [id number] /
== END 2018-09-19 14:21 | disposition home or self-care (01) ==
LOC: EC 18:23 → 4SSUR 20:46
PROVIDERS: ADMIT Family Medicine; ATTEND Family Medicine
DX: K92.1 Melena (principal); S80.12XA Contusion of left lower leg, initial encounter; E03.9 Hypothyroidism, unspecified; E78.5 Hyperlipidemia, unspecified; I10 Essential (primary) hypertension; K64.9 Unspecified hemorrhoids; D64.9 Anemia, unspecified; K58.9 Irritable bowel syndrome, unspecified; J44.9 Chronic obstructive pulmonary disease, unspecified; Z88.1 Allergy status to other antibiotic agents; Z88.5 Allergy status to narcotic agent; Z96.652 Presence of left artificial knee joint; Z96.612 Presence of left artificial shoulder joint; Z96.611 Presence of right artificial shoulder joint; Z90.710 Acquired absence of both cervix and uterus; Z87.891 Personal history of nicotine dependence; Z85.828 Personal history of other malignant neoplasm of skin; Z79.899 Other long term (current) drug therapy; Z79.890 Hormone replacement therapy; Z79.82 Long term (current) use of aspirin; Z79.51 Long term (current) use of inhaled steroids; Z79.01 Long term (current) use of anticoagulants; Z98.42 Cataract extraction status, left eye; Z98.41 Cataract extraction status, right eye; Z81.1 Family history of alcohol abuse and dependence
CPT/HCPCS: 96376 ×2; 96361 ×3; 96374; 99285; 36415; 94640 ×2; 86900; 86901; 80053; 80048 ×2; 84132; 85025 ×2; 85027; 85610; 85730; 86850; 82272; 93971; G0378 ×3; C9113 ×3

== ENCOUNTER → 2018-11-02 | Outpatient (CLI) | payer MEDICARE ==
--- NOTE | 2018-11-02 12:43 | US ---
EXAMINATION TYPE: US venous doppler duplex LE LT DATE OF EXAM: 11/02/2018 12:31 PM COMPARISON: US 2018 CLINICAL HISTORY: 73-year-old female M25.562 Pain in Left knee. Intermittent left leg pain and swelli ng x 1 month following knee replacement in September 2018. SIDE PERFORMED: Left TECHNIQUE: The lower extremity deep venous system is examined utilizing real time linear array sonog polina with graded compression, doppler sonography and color-flow sonography. FINDINGS: VESSELS IMAGED: External Iliac Vein (EIV) Common Femoral Vein Deep Femoral Vein Greater Saphenous Vein * Femoral Vein Popliteal Vein Small Saphenous Vein * Proximal Calf Veins (* superficial vessels) Posterior tibial veins Left Leg: Appears negative for DVT IMPRESSION: No evidence for DVT within the left lower extremity. [employer] notes: Results called to Rhonda at [facility] at end of exam.
== END | disposition home or self-care (01) ==
LOC: RADUSWWP 11:51
PROVIDERS: ATTEND Orthopaedic Surgery
DX: M25.062 Hemarthrosis, left knee (principal); R60.0 Localized edema; S80.02XD Contusion of left knee, subsequent encounter; J44.9 Chronic obstructive pulmonary disease, unspecified; E03.8 Other specified hypothyroidism; I51.9 Heart disease, unspecified; I80.9 Phlebitis and thrombophlebitis of unspecified site; M17.12 Unilateral primary osteoarthritis, left knee; Z47.1 Aftercare following joint replacement surgery; Z85.9 Personal history of malignant neoplasm, unspecified; Z68.32 Body mass index [BMI] 32.0-32.9, adult

== ENCOUNTER 2019-07-27 10:31 | Emergency (ER) | payer MEDICARE ==
--- NOTE | 2019-07-27 11:08 | ED ---
General Adult HPI - General Chief complaint: Neuro Symptoms/Deficit Stated complaint: Loss of vision Time Seen by Provider: 07/27/19 10:50 Source: patient, RN notes reviewed Mode of arrival: wheelchair Limitations: no limitations - History of Present Illness Initial comments: Patient is a pleasant 74-year-old female presenting to the emergency department with right visual loss. Onset of symptoms was a 30. Patient states vision loss from her right eye started in the medial portion and continued across. Patient has not had any vision from that eye since that time, not even shadows. No eye pain. No headache. No temporal pain. No history of similar symptoms previously. No confusion or speech problems. No arm weakness. Patient does however feel somewhat off balance. Patient is able to walk however take slow steady steps. - Related Data Home Medications Medication Instructions Recorded Confirmed Fluticasone/Salmeterol [Advair Hfa 2 puff INHALATION RT-BID 09/14/13 07/27/19 115-21 Mcg Inhaler] Levothyroxine Sodium [Synthroid] 137 mcg PO QAM 09/14/13 07/27/19 Montelukast [Singulair] 10 mg PO HS 09/14/13 07/27/19 cycloSPORINE [Restasis] 1 drop BOTH EYES BID 09/14/13 07/27/19 Cholecalciferol [Vitamin D3 (25 1,000 unit PO DAILY 09/16/17 07/27/19 Mcg = 1000 Iu)] Multivitamins, Thera [Multivitamin 1 tab PO DAILY 09/16/17 07/27/19 (formulary)] Albuterol Inhaler [Ventolin Hfa 1 - 2 puff INHALATION RT-Q6H PRN 05/07/18 07/27/19 Inhaler] Nitroglycerin Sl Tabs [Nitrostat] 0.4 mg SUBLINGUAL Q5M PRN 05/07/18 07/27/19 Dicyclomine [Bentyl] 20 mg PO QID PRN 06/28/18 07/27/19 Isosorbide Mononitrate ER [Imdur] 30 mg PO QAM 09/07/18 07/27/19 Losartan [Cozaar] 25 mg PO HS 09/07/18 07/27/19 Metoprolol Tartrate [Lopressor] 12.5 mg PO BID 09/07/18 07/27/19 ALPRAZolam [Xanax] 0.25 mg PO DAILY PRN 07/27/19 07/27/19 Previous Rx's Medication Instructions Recorded Atorvastatin [Lipitor] 20 mg PO HS #30 tab 06/29/18 Aspirin [Adult Low Dose Aspirin EC] 81 mg PO DAILY #1 tablet. 09/15/18 Allergies Allergy/AdvReac Type Severity Reaction Status Date / Time ciprofloxacin [From Cipro] Allergy Unknown Verified 07/27/19 11:30 hydrocodone bitartrate Allergy Anaphylaxis Verified 07/27/19 11:30 [From Vicodin] levofloxacin [From Levaquin] Allergy Unknown Verified 07/27/19 11:30 Review of Systems ROS Statement: Those systems with pertinent positive or pertinent negative responses have been documented in the HPI. ROS Other: All systems not noted in ROS Statement are negative. Constitutional: Denies: fever Eyes: Denies: eye pain ENT: Denies: ear pain Respiratory: Denies: cough Cardiovascular: Denies: chest pain Endocrine: Denies: fatigue Gastrointestinal: Denies: abdominal pain Genitourinary: Denies: dysuria Musculoskeletal: Denies: back pain Skin: Denies: rash Neurological: Reports: as per HPI. Denies: headache, weakness, numbness, par esthesias, confusion Past Medical History Past Medical History: Asthma, Cancer, Chest Pain / Angina, COPD, Hyperlipidemia, Hypertension, Osteoarthritis (OA), Thyroid Disorder Additional Past Medical History / Comment(s): HYPOTHYROID. Hx skin cancer on nose. IBS. History of Any Multi-Drug Resistant Organisms: None Reported Past Surgical History: Appendectomy, Bladder Surgery, Hysterectomy, Joint Replacement, Orthopedic Surgery, Tonsillectomy Additional Past Surgical History / Comment(s): FACIAL SURGERY/RECONSTRUCTION POST INJURY. BILATERAL CATARACTS. Left shoulder replacement, bilateral shoulder surgery. Skin cancer on nose removed. Past Anesthesia/Blood Transfusion Reactions: Postoperative Nausea & Vomiting (PONV) Past Psychological History: No Psychological Hx Reported Smoking Status: Former smoker Past Alcohol Use History: None Reported Past Drug Use History: None Reported - Past Family History Mother Family Medical History: No Reported History Father Family Medical History: Liver Disease Additional Family Medical History / Comment(s): Father was an alcoholic. He had liver cirrhosis. General Exam Limitations: no limitations General appearance: alert, in no apparent distress Head exam: Present: normocephalic Eye exam: Present: normal appearance, EOMI, other Pupils: Present: other (Right pupil with diminished activity to direct light) Expanded Pupils: Reactive: Left Sclera/Conjunctival: Normal Inspection: Bilateral Posterior chamber: Deferred: Bilateral ENT exam: Present: normal oropharynx Neck exam: Present: normal inspection Respiratory exam: Present: normal lung sounds bilaterally Cardiovascular Exam: Present: regular rate, normal rhythm GI/Abdominal exam: Present: soft. Absent: tenderness Extremities exam: Present: normal inspection Neurological exam: Present: alert, oriented X3, CN II-XII intact (Except for right pupil does not react), abnormal gait (Patient takes slow steady steps as she walks) Expanded Neurological exam: Present: protecting the airway Patient oriented to: Present: person, place, time Speech: Present: fluid speech Cranial nerves: EOM's Intact: Normal Sensory exam: Upper Extremity Light Touch: Normal, Lower Extremity Light Touch: Normal Motor strength exam: RUE: 5, LUE: 5, RLE: 5, LLE: 5 Eye Response: (4) open spontaneously Motor Response: (6) obeys commands Verbal Response: (5) oriented Psychiatric exam: Present: normal affect, normal mood Skin exam: Present: normal color Course Vital Signs 07/27/19 07/27/19 07/27/19 10:34 11:05 12:05 Temperature 97.8 F 98.0 F 98.0 F Pulse Rate 60 76 74 Respiratory 18 16 17 Rate Blood Pressure 180/89 189/60 160/61 O2 Sat by Pulse 96 99 99 Oximetry - Reevaluation(s) Reevaluation #1: 07/27/19 11:08 Case was discussed with Dr. Qureshi who does agree with CT and CTA. Dr. Colin has been paged 07/27/19 11:47 Case was discussed with Dr. Colin who has concern for vascular occlusion and would like patient to be seen in the office. He believes patient symptoms are likely ocular. 07/27/19 12:56 Case again discussed with Dr. Qureshi including CT results. He is comfortable with discharge patient and will follow-up with her. She does request keeping blood pressure under 160 systolic, preferably under 140. Patient is updated regarding CT and CTA results as well as need for follow-up with Dr. Qureshi. Also specifically updated on need for blood pressure control and states her normal systolic blood pressure was around 124. Patient is also updated on need to follow-up immediately with Dr. Colin and is in agreement with this. EKG Findings - EKG Comments: EKG Findings:: Normal sinus rhythm 62. NM 188. QRS 82. QT 420. QTc 426. Normal axis. Normal QRS. No acute ST change. Medical Decision Making - Lab Data Result diagrams: 07/27/19 10:51 07/27/19 10:51 Lab Results 07/27/19 07/27/19 07/27/19 Range/Units 10:51 10:51 10:51 WBC 9.2 (3.8-10.6) k/uL RBC 4.80 (3.80-5.40) m/uL Hgb 14.6 (11.4-16.0) gm/dL Hct 44.6 (34.0-46.0) % MCV 93.0 (80.0-100.0) fL MCH 30.4 (25.0-35.0) pg MCHC 32.7 (31.0-37.0) g/dL RDW 13.0 (11.5-15.5) % Plt Count 254 (150-450) k/uL Neutrophils % 69 % Lymphocytes % 18 % Monocytes % 6 % Eosinophils % 5 % Basophils % 1 % Neutrophils # 6.4 (1.3-7.7) k/uL Lymphocytes # 1.7 (1.0-4.8) k/uL Monocytes # 0.6 (0-1.0) k/uL Eosinophils # 0.4 (0-0.7) k/uL Basophils # 0.1 (0-0.2) k/uL Manual Slide Review Performed RBC Morphology Normal PT 9.4 (9.0-12.0) sec INR 0.9 (<1.2) APTT 22.5 (22.0-30.0) sec Sodium 141 (137-145) mmol/L Potassium 4.3 (3.5-5.1) mmol/L Chloride 102 (98-107) mmol/L Carbon Dioxide 28 (22-30) mmol/L Anion Gap 11 mmol/L BUN 17 (7-17) mg/dL Creatinine 0.55 (0.52-1.04) mg/dL Est GFR (CKD-EPI)AfAm >90 (>60 ml/min/1.73 sqM) Est GFR (CKD-EPI)NonAf >90 (>60 ml/min/1.73 sqM) Glucose 95 (74-99) mg/dL Calcium 9.9 (8.4-10.2) mg/dL Total Bilirubin 0.5 (0.2-1.3) mg/dL AST 30 (14-36) U/L ALT 29 (4-34) U/L Alkaline Phosphatase 74 (38-126) U/L Total Protein 7.2 (6.3-8.2) g/dL Albumin 4.4 (3.5-5.0) g/dL Urine Color Urine Appearance (Clear) Urine pH (5.0-8.0) Ur Specific [place] (1.001-1.035) Urine Protein (Negative) Urine Glucose (UA) (Negative) Urine Ketones (Negative) Urine Blood (Negative) Urine Nitrite (Negative) Urine Bilirubin (Negative) Urine Urobilinogen (<2.0) mg/dL Ur Leukocyte Esterase (Negative) 07/27/19 Range/Units 10:51 WBC (3.8-10.6) k/uL RBC (3.80-5.40) m/uL Hgb (11.4-16.0) gm/dL Hct (34.0-46.0) % MCV (80.0-100.0) fL MCH (25.0-35.0) pg MCHC (31.0-37.0) g/dL RDW (11.5-15.5) % Plt Count (150-450) k/uL Neutrophils % % Lymphocytes % % Monocytes % % Eosinophils % % Basophils % % Neutrophils # (1.3-7.7) k/uL Lymphocytes # (1.0-4.8) k/uL Monocytes # (0-1.0) k/uL Eosinophils # (0-0.7) k/uL Basophils # (0-0.2) k/uL Manual Slide Review RBC Morphology PT (9.0-12.0) sec INR (<1.2) APTT (22.0-30.0) sec Sodium (137-145) mmol/L Potassium (3.5-5.1) mmol/L Chloride (98-107) mmol/L Carbon Dioxide (22-30) mmol/L Anion Gap mmol/L BUN (7-17) mg/dL Creatinine (0.52-1.04) mg/dL Est GFR (CKD-EPI)AfAm (>60 ml/min/1.73 sqM) Est GFR (CKD-EPI)NonAf (>60 ml/min/1.73 sqM) Glucose (74-99) mg/dL Calcium (8.4-10.2) mg/dL Total Bilirubin (0.2-1.3) mg/dL AST (14-36) U/L ALT (4-34) U/L Alkaline Phosphatase (38-126) U/L Total Protein (6.3-8.2) g/dL Albumin (3.5-5.0) g/dL Urine Color Colorless Urine Appearance Clear (Clear) Urine pH 6.5 (5.0-8.0) Ur Specific [place] 1.004 (1.001-1.035) Urine Protein Negative (Negative) Urine Glucose (UA) Negative (Negative) Urine Ketones Negative (Negative) Urine Blood Negative (Negative) Urine Nitrite Negative (Negative) Urine Bilirubin Negative (Negative) Urine Urobilinogen <2.0 (<2.0) mg/dL Ur Leukocyte Esterase Negative (Negative) - Radiology Data Radiology results: report reviewed (Head CT shows no intracranial hemorrhage. Mild atrophy. 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 CT angios of brain shows 5 mm saccular aneurysm anterior communicating artery. 4 mm saccular aneurysm trifurcation left MCA and 3 mm fusiform aneurysm trifurcation of the right MCA. Less than 50% stenosis.), image reviewed (Chest x-ray shows no acute process) Disposition Clinical Impression: Visual loss Disposition: HOME SELF-CARE Condition: Stable Instructions (If sedation given, give patient instructions): Blurred Vision (ED) Additional Instructions: Follow-up today with Dr. Liz, we have been provided directions. Please also follow-up with Dr. Tavarez, within the next several days. Number was provided. Return for pain, confusion, difficulty walking, speech problems, arm or leg weakness, worsening symptoms or any other concerns. Be sure to keep blood pressure under 140 systolic. Is patient prescribed a controlled substance at d/c from ED?: No Referrals: Marcelo Lozano MD [Primary Care Provider] - 1-2 days Lucas Colin MD [STAFF PHYSICIAN] - 1-2 days Wes Tavarez MD [STAFF PHYSICIAN] - 1-2 days Time of Disposition: 13:00
[2019-07-27 11:13] LABS: Basophils # (A) 0.1 k/uL (0-0.2); Basophils % (A) 1 %; Eosinophils # (A) 0.4 k/uL (0-0.7); Eosinophils % (A) 5 %; HCT 44.6 % (34.0-46.0); HGB 14.6 gm/dL (11.4-16.0); Lymphocytes # (A) 1.7 k/uL (1.0-4.8); Lymphocytes % (A) 18 %; MCH 30.4 pg (25.0-35.0); MCHC 32.7 g/dL (31.0-37.0); Mean Platelet Volume 7.3; Monocytes # (A) 0.6 k/uL (0-1.0); Monocytes % (A) 6 %; Neutrophils # (A) 6.4 k/uL (1.3-7.7); Neutrophils % (A) 69 %; Platelet Count 254 k/uL (150-450); WBC 9.2 k/uL (3.8-10.6)
[2019-07-27 11:19] VITALS: TEMP 98
--- NOTE | 2019-07-27 11:21 | CT ---
EXAMINATION TYPE: CT brain wo con for TPA DATE OF EXAM: 07/27/2019 HISTORY: Confusion. Acute onset neuro deficit. CT DLP: 1085.8 mGycm. Automated Exposure Control for Dose Reduction was Utilized. TECHNIQUE: CT scan of the head is performed without contrast. COMPARISON: None. FINDINGS: There is no acute intracranial hemorrhage or midline shift identified. There is diffuse v entricular and sulcal prominence consistent with diffuse age-related cerebral atrophy. There is low- attenuation in the periventricular white matter consistent with chronic small vessel ischemic change. Old infarct medial right frontal lobe axial image 26 noted. The globes are intact and the visualize d sinuses are clear. Surgical changes from left shoulder arthroplasty noted on the localizer. Sligh t prominence near level of anterior communicating artery axial image 22 corresponding to sagittal demar ge 35. IMPRESSION: No acute intracranial hemorrhage or midline shift. There is mild diffuse age-related ce rebral atrophy and mild to moderate chronic small vessel ischemic change along with old frontal lobe infarct all noted. Possible small aneurysm near level of anterior communicating artery. It is noted patient is already scheduled for CTA evaluation following this CT.
[2019-07-27 11:25] LABS: INR 0.9 (<1.2); Partial Thromboplastin Time 22.5 sec (22.0-30.0); Prothrombin Time 9.4 sec (9.0-12.0)
--- NOTE | 2019-07-27 11:27 | XR ---
EXAMINATION TYPE: XR chest 2V DATE OF EXAM: 07/27/2019 COMPARISON: Prior chest x-ray 06/28/2018, 04/27/2019 HISTORY: Altered mental status, dizziness and nausea TECHNIQUE: Frontal and lateral views of the chest are obtained. FINDINGS: Postop change noted to the left shoulder. There are overlying cardiac leads. Cardiac media stinal silhouette, pulmonary vascularity and ping show no significant interval change. Arthropathy no lucian in the right shoulder, distal acromial spur is present. No evident pneumothorax or pleural effusi on. Prominent lung volume may be indicative of underlying COPD. IMPRESSION: No acute cardiopulmonary process.
[2019-07-27 11:28] LABS: ALT 29 U/L (4-34); AST 30 U/L (14-36); African American GFR (CKD) >90 (>60 ml/min/1.73 sqM); Albumin 4.4 g/dL (3.5-5.0); Alkaline Phosphatase 74 U/L (38-126); Anion Gap 11 mmol/L; Blood Urea Nitrogen 17 mg/dL (7-17); Calcium 9.9 mg/dL (8.4-10.2); Carbon Dioxide 28 mmol/L (22-30); Chloride 102 mmol/L (98-107); Glucose 95 mg/dL (74-99); Non-African American GFR(CKD) >90 (>60 ml/min/1.73 sqM); Potassium 4.3 mmol/L (3.5-5.1); Sodium 141 mmol/L (137-145); Total Bilirubin 0.5 mg/dL (0.2-1.3); Total Protein 7.2 g/dL (6.3-8.2)
[2019-07-27 11:32] LABS: Appearance,Urine Clear (Clear); Bilirubin,Urine Negative (Negative); Blood,Urine Negative (Negative); Color,Urine Colorless; Glucose,Urine (UA) Negative (Negative); Ketones,Urine Negative (Negative); Leukocyte Esterase,Urine Negative (Negative); Nitrite,Urine Negative (Negative); PH, Urine 6.5 (5.0-8.0); Protein,Urine Negative (Negative); Specific Gravity,Urine 1.004 (1.001-1.035); Urobilinogen,Urine <2.0 mg/dL (<2.0)
--- NOTE | 2019-07-27 12:08 | CT ---
EXAMINATION TYPE: CT angio head neck DATE OF EXAM: 07/27/2019 HISTORY: Neurologic deficit, suspected aneurysm COMPARISON: CT brain of the same date CT DLP: 459.9 mGycm. Automated Exposure Control for Dose Reduction was Utilized. TECHNIQUE: CTA scan of the neck is performed with IV Contrast, patient injected with 65 mL of Isovue 370, axial images are obtained, coronal and sagittal reformatted images are reviewed. Three-D recons tructed images are created on an independent workstation and reviewed. FINDINGS: Carotid/Vascular Structures: Confirmation of a saccular 5 mm aneurysm of the anterior commuting arter y. There is also a 4 mm saccular aneurysm at the trifurcation of the left MCA. There is a fusiform an eurysm of the trifurcation of the right MCA measuring 3 mm. origin of the right posterior cereb ral artery is incidentally seen. Left posterior communicating artery is not definitively identified a nd therefore [place] is not deemed complete. Vertebrobasilar system is otherwise unremarkabl e. There is a conventional three-vessel branch pattern of the aortic arch. Mild to moderate atherosclero sis of the ostia of the left common carotid artery and approximately 50% short segment stenosis of th e left common carotid artery spanning a total distance of 1.6 cm located 4 mm distal to its origin. T he right common carotid artery remainder the left common carotid artery are unremarkable. Approximate ly 50% stenosis of the left carotid bulb and 40% of the proximal left ICA. Nonhemodynamically signifi cant stenosis of the right carotid bulb and proximal ICA. Vertebral arteries are codominant and paten t. Other: Visualized portions of the brain are discussed in the CT brain dictation of the same date. Mil d to moderate emphysematous changes are seen of the lung apices with biapical pleural parenchymal sca rring. Thyroid gland is atrophic. Moderate multilevel degenerative change of the visualized spine. IMPRESSION: 1. 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 2. 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 4. No greater than 50 % stenosis of the major intracranial vasculature of the head or neck. Multifoca l stenosis of 50% or less described above.
[2019-07-27 12:10] VITALS: BP 160/61; PULSE 74; RESP 17
== END 2019-07-27 13:09 | disposition home or self-care (01) ==
LOC: EC 10:31
DX: H54.61 Unqualified visual loss, right eye, normal vision left eye (principal); J44.9 Chronic obstructive pulmonary disease, unspecified; I10 Essential (primary) hypertension; E03.9 Hypothyroidism, unspecified; Z79.899 Other long term (current) drug therapy; Z88.1 Allergy status to other antibiotic agents; Z88.5 Allergy status to narcotic agent; Z88.6 Allergy status to analgesic agent; Z87.891 Personal history of nicotine dependence; Z85.828 Personal history of other malignant neoplasm of skin; Z96.612 Presence of left artificial shoulder joint
CPT/HCPCS: 36415; 93005; 80053; 85025; 85610; 85730; 81003; 71046; 70496; 70450; 70498; 99284; Q9967

== ENCOUNTER 2019-07-27 16:15 | Inpatient (IN) | payer MEDICARE ==
--- NOTE | 2019-07-27 16:24 | ED ---
General Adult HPI - General Chief complaint: Eye Problems Stated complaint: Vision loss Time Seen by Provider: 07/27/19 16:18 Source: patient, RN notes reviewed Mode of arrival: ambulatory Limitations: no limitations - History of Present Illness Initial comments: Patient is a pleasant 74-year-old female returning to the emergency department after being evaluated by ophthalmology. Patient had sudden vision loss of the right eye around 8:30 this morning that does persist. Patient did complain also of some balance problems. No confusion or speech problems. No weakness of her extremities. Patient was in the emergency department and had CT and CTA done. Patient was then transferred to Dr. Colin's office. Dr. Schmidt did evaluate patient and since her back here for stroke admission secondary to embolic central retinal artery occlusion. - Related Data Home Medications Medication Instructions Recorded Confirmed Fluticasone/Salmeterol [Advair Hfa 2 puff INHALATION RT-BID 09/14/13 07/27/19 115-21 Mcg Inhaler] Levothyroxine Sodium [Synthroid] 137 mcg PO QAM 09/14/13 07/27/19 Montelukast [Singulair] 10 mg PO HS 09/14/13 07/27/19 cycloSPORINE [Restasis] 1 drop BOTH EYES BID 09/14/13 07/27/19 Cholecalciferol [Vitamin D3 (25 1,000 unit PO DAILY 09/16/17 07/27/19 Mcg = 1000 Iu)] Multivitamins, Thera [Multivitamin 1 tab PO DAILY 09/16/17 07/27/19 (formulary)] Albuterol Inhaler [Ventolin Hfa 1 - 2 puff INHALATION RT-Q6H PRN 05/07/18 07/27/19 Inhaler] Nitroglycerin Sl Tabs [Nitrostat] 0.4 mg SUBLINGUAL Q5M PRN 05/07/18 07/27/19 Dicyclomine [Bentyl] 20 mg PO QID PRN 06/28/18 07/27/19 Isosorbide Mononitrate ER [Imdur] 30 mg PO QAM 09/07/18 07/27/19 Losartan [Cozaar] 25 mg PO HS 09/07/18 07/27/19 Metoprolol Tartrate [Lopressor] 12.5 mg PO BID 09/07/18 07/27/19 ALPRAZolam [Xanax] 0.25 mg PO DAILY PRN 07/27/19 07/27/19 Previous Rx's Medication Instructions Recorded Atorvastatin [Lipitor] 20 mg PO HS #30 tab 06/29/18 Aspirin [Adult Low Dose Aspirin EC] 81 mg PO DAILY #1 tablet. 09/15/18 Allergies Allergy/AdvReac Type Severity Reaction Status Date / Time ciprofloxacin [From Cipro] Allergy Unknown Verified 07/27/19 11:30 hydrocodone bitartrate Allergy Anaphylaxis Verified 07/27/19 11:30 [From Vicodin] levofloxacin [From Levaquin] Allergy Unknown Verified 07/27/19 11:30 Review of Systems ROS Statement: Those systems with pertinent positive or pertinent negative responses have been documented in the HPI. ROS Other: All systems not noted in ROS Statement are negative. Constitutional: Denies: fever Eyes: Reports: as per HPI, vision change. Denies: eye pain ENT: Denies: ear pain Respiratory: Denies: dyspnea Cardiovascular: Denies: chest pain Endocrine: Denies: fatigue Gastrointestinal: Denies: abdominal pain Genitourinary: Denies: dysuria Musculoskeletal: Denies: back pain Skin: Denies: rash Neurological: Denies: weakness Past Medical History Past Medical History: Asthma, Cancer, Chest Pain / Angina, COPD, Hyperlipidemia, Hypertension, Osteoarthritis (OA), Thyroid Disorder Additional Past Medical History / Comment(s): HYPOTHYROID. Hx skin cancer on nose. IBS. History of Any Multi-Drug Resistant Organisms: None Reported Past Surgical History: Appendectomy, Bladder Surgery, Hysterectomy, Joint Replacement, Orthopedic Surgery, Tonsillectomy Additional Past Surgical History / Comment(s): FACIAL SURGERY/RECONSTRUCTION POST INJURY. BILATERAL CATARACTS. Left shoulder replacement, bilateral shoulder surgery. Skin cancer on nose removed. Past Anesthesia/Blood Transfusion Reactions: Postoperative Nausea & Vomiting (PONV) Past Psychological History: No Psychological Hx Reported Smoking Status: Former smoker Past Alcohol Use History: None Reported Past Drug Use History: None Reported - Past Family History Mother Family Medical History: No Reported History Father Family Medical History: Liver Disease Additional Family Medical History / Comment(s): Father was an alcoholic. He had liver cirrhosis. General Exam Limitations: no limitations General appearance: alert, in no apparent distress Head exam: Present: normocephalic Eye exam: Present: EOMI, other (Both pupils fixed and dilated post ophthalmology evaluation) ENT exam: Present: normal oropharynx Neck exam: Present: normal inspection Respiratory exam: Present: normal lung sounds bilaterally Cardiovascular Exam: Present: regular rate, normal rhythm GI/Abdominal exam: Present: soft. Absent: tenderness Extremities exam: Present: normal inspection Neurological exam: Present: alert, oriented X3, CN II-XII intact (Except pupils do not react). Absent: motor sensory deficit Expanded Neurological exam: Present: protecting the airway Speech: Present: fluid speech Cranial nerves: EOM's Intact: Normal Sensory exam: Upper Extremity Light Touch: Normal, Lower Extremity Light Touch: Normal Motor strength exam: RUE: 5, LUE: 5, RLE: 5, LLE: 5 Eye Response: (4) open spontaneously Motor Response: (6) obeys commands Verbal Response: (5) oriented Psychiatric exam: Present: normal affect, normal mood Skin exam: Present: normal color Course Vital Signs 07/27/19 16:17 Temperature 98.1 F Pulse Rate 87 Respiratory 18 Rate Blood Pressure 184/85 O2 Sat by Pulse 96 Oximetry Medical Decision Making - Medical Decision Making Case was discussed with Dr. Daley prior to presenting back to the emergency department. Case was again discussed with Dr. Qureshi who states patient does not need to be transferred and can follow-up with him. Case was also discussed with Dr. Penaloza, who will admit his patient and request neurology consult. Patient is made aware of results and plan. Disposition Clinical Impression: Visual loss, Central retinal artery occlusion Disposition: ADMITTED IP TO THIS HOSP Is patient prescribed a controlled substance at d/c from ED?: No Referrals: Rinku Penaloza DO [Primary Care Provider] - 1-2 days Decision Time: 16:24
[2019-07-27] MEDS: ATORVASTATIN 40 MG TAB PO SCH ×3 (16:50→17:03)
[2019-07-27] MEDS: SODIUM CHLORIDE 0.9% 1,000 ML IV SCH (16:51)
[2019-07-27] MEDS: ASPIRIN 325 MG TAB PO STA ×2 (16:51→17:03)
[2019-07-27] MEDS ORDERED: ASPIRIN 325 MG TAB PO STA (16:53)
[2019-07-27] MEDS ORDERED: CLOPIDOGREL 75 MG TAB PO STA (22:18)
[2019-07-28] MEDS: SODIUM CHLORIDE 0.9% 1,000 ML IV SCH ×3 (03:00→23:52)
[2019-07-28 06:51] LABS: Cholesterol 176 mg/dL (<200); HDL Cholesterol 62 mg/dL (40-60); LDL Cholesterol,Calculated 87 mg/dL (0-99); Triglycerides 134 mg/dL (<150)
[2019-07-28] MEDS: ATORVASTATIN 40 MG TAB PO SCH (09:11)
[2019-07-28] MEDS ORDERED: NITROGLYCERIN SL TABS 0.4 MG TAB SUBLINGUAL PRN (09:37)
[2019-07-28] MEDS ORDERED: ALBUTEROL NEBULIZED 2.5 MG/3 ML INHALATION PRN (09:37)
[2019-07-28] MEDS ORDERED: DICYCLOMINE 20 MG TAB PO PRN (09:37)
[2019-07-28 09:51] LABS: Basophils # (A) 0.1 k/uL (0-0.2); Basophils % (A) 1 %; Eosinophils # (A) 0.4 k/uL (0-0.7); Eosinophils % (A) 7 %; HGB 13.7 gm/dL (11.4-16.0); Lymphocytes # (A) 1.7 k/uL (1.0-4.8); Lymphocytes % (A) 26 %; MCHC 31.9 g/dL (31.0-37.0); MCV 94.2 fL (80.0-100.0); Mean Platelet Volume 8.1; Monocytes # (A) 0.3 k/uL (0-1.0); Monocytes % (A) 5 %; Neutrophils # (A) 3.7 k/uL (1.3-7.7); Neutrophils % (A) 59 %; Platelet Count 258 k/uL (150-450); RBC 4.57 m/uL (3.80-5.40); RDW 13.1 % (11.5-15.5); WBC 6.4 k/uL (3.8-10.6)
[2019-07-28 10:37] LABS: ALT 27 U/L (4-34); AST 30 U/L (14-36); African American GFR (CKD) >90 (>60 ml/min/1.73 sqM); Albumin 3.9 g/dL (3.5-5.0); Alkaline Phosphatase 70 U/L (38-126); Anion Gap 7 mmol/L; Blood Urea Nitrogen 12 mg/dL (7-17); Calcium 9.4 mg/dL (8.4-10.2); Carbon Dioxide 24 mmol/L (22-30); Chloride 108 mmol/L (98-107); Glucose 91 mg/dL (74-99); Non-African American GFR(CKD) >90 (>60 ml/min/1.73 sqM); Sodium 139 mmol/L (137-145); Total Bilirubin 0.5 mg/dL (0.2-1.3); Total Protein 6.4 g/dL (6.3-8.2)
--- NOTE | 2019-07-28 11:00 | ECHOF ---
Referral Reason:Thrombus MEASUREMENTS -------- HEIGHT: 160.0 cm WEIGHT: 84.4 kg BP: 144/65 RVIDd: 3.2 cm (< 3.3) IVSd: 1.3 cm (0.6 - 1.1) LVIDd: 3.5 cm (3.9 - 5.3) LVPWd: 1.1 cm (0.6 - 1.1) IVSs: 1.6 cm LVIDs: 2.4 cm LVPWs: 1.6 cm LA Diam: 3.1 cm (2.7 - 3.8) LAESV Index (A-L): 20.71 ml/m Ao Diam: 2.5 cm (2.0 - 3.7) AV Cusp: 1.8 cm (1.5 - 2.6) MV EXCURSION: 8.677 mm (> 18.000) MV EF SLOPE: 15 mm/s (70 - 150) EPSS: 1.6 cm MV E Dajuan: 1.05 m/s MV DecT: 209 ms MV A Dajuan: 1.18 m/s MV E/A Ratio: 0.89 RAP: 5.00 mmHg RVSP: 28.48 mmHg TAPSE: 27.29 mm FINDINGS -------- Sinus rhythm. This was a technically good study. The left ventricular size is normal. There is mild concentric left ventricular hypertrophy. Overa ll left ventricular systolic function is normal with, an EF between 60 - 65 %. The right ventricle is normal in size. Normal LA size by volume 22+/-6 ml/m2. The right atrium is normal in size. Interatrial and interventricular septum intact. There is mild aortic valve sclerosis. The mitral valve is normal. Mild tricuspid regurgitation present. Right ventricular systolic pressure is normal at < 35 mmHg. Trace/mild (physiologic) pulmonic regurgitation. The aortic root size is normal. Normal inferior vena cava with normal inspiratory collapse consistent with estimated right atrial pre ssure of 5 mmHg. There is no pericardial effusion. CONCLUSIONS -------- 1. Sinus rhythm. 2. This was a technically good study. 3. The left ventricular size is normal. 4. There is mild concentric left ventricular hypertrophy. 5. Overall left ventricular systolic function is normal with, an EF between 60 - 65 %. 6. The right ventricle is normal in size. 7. Normal LA size by volume 22+/-6 ml/m2. 8. The right atrium is normal in size. 9. Interatrial and interventricular septum intact. 10. There is mild aortic valve sclerosis. 11. The mitral valve is normal. 12. Mild tricuspid regurgitation present. 13. Right ventricular systolic pressure is normal at < 35 mmHg. 14. Trace/mild (physiologic) pulmonic regurgitation. 15. The aortic root size is normal. 16. Normal inferior vena cava with normal inspiratory collapse consistent with estimated right atrial pressure of 5 mmHg. 17. There is no pericardial effusion. BARREL LINE OPERATOR: Humaira Montalvo RDCS
[2019-07-28] MEDS ORDERED: ACETAMINOPHEN TAB 325 MG TAB PO PRN (12:06)
[2019-07-28] MEDS: ASPIRIN 325 MG TAB PO SCH (12:39)
[2019-07-28] MEDS: LEVOTHYROXINE 137 MCG TAB PO SCH (13:00)
[2019-07-28] MEDS: METOPROLOL TARTRATE 12.5 MG TAB PO SCH ×2 (13:01→21:27)
[2019-07-28] MEDS: ISOSORBIDE MONONITRATE ER 30 MG TAB.ER.24H PO SCH (13:01)
[2019-07-28] MEDS: SYMBICORT 160-4.5 MCG INHALER INHALATION SCH ×2 (13:16→20:28)
--- NOTE | 2019-07-28 13:22 | P.CNNES ---
History of Present Illness Consult date: 07/28/19 Requesting physician: Mark Muniz Reason for Consult: Central retinal artery occlusion History of Present Illness: Patient is a 74-year-old female, with history of hypertension, who states that yesterday morning she woke up at 6-7 AM and was doing fine. She took her medications as usual. At 8:30 AM she suddenly noticed blackness in the right lateral visual field out of right eye. Patient decided to come to the ER. By the time she arrived to the ER, the whole vision in the right eye has completely gone, and everything was black out of the right eye. The left eye was doing perfectly well. Patient was referred to an ophthalmology evaluation, and was seen by an packaging specialist, who diagnosed her with right central retinal artery occlusion. Patient was referred to ER to evaluate for stroke workup and for ant icoagulation. Patient says that she has been feeling slightly off balance which probably is because of acute loss of vision of the right eye. Otherwise denies any slurred speech facial droop numbness tingling focal weakness. Patient had a computed tomography scan of head, which revealed no acute intracranial hemorrhage or midline shift. There is mild diffuse age-related cerebral atrophy and mild to moderate chronic small vessel ischemic change along with old frontal lobe infarct all noted. Possible small aneurysm near level of anterior communicating artery. 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 There is a 4 mm saccular aneurysm at the trifurcation of the left MCA and 3 mm fusiform aneurysm at the trifurcation of the right MCA. No greater than 50% stenosis of the major intracranial vasculature of the head or neck. 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 Approximately 50% stenosis of the left carotid bulb and 40% of the proximal left ICA. No hemodynamically significant stenosis of the right carotid bulb and proximal ICA. Vertebral arteries are codominant and patent. Patient had a 2-D echo, which revealed sinus rhythm, left radicular size is normal. Mild concentric LVH. Overall left ventricular systolic function is normal with EF 60-65%. Right ventricular size is normal. Normal left atrial size. Interatrial septum intact. Patient's hemoglobin A1c is 5.6. Total cholesterol 176, LDL 87, HDL 62 and triglycerides 134. Thyroid functions are normal. CRP 9.1. UA negative. Her EKG shows normal sinus rhythm and chest x-ray with no acute cardiopulmonary process. Patient has history of hypertension, denies diabetes. She has smoked 1 pack per day for 15-20 years, quit 25 years ago. Denies any alcohol. 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 She also takes statins. Denies any previous history of strokes or TIAs. Review of Systems Complains of mild headache, which could be from uncontrolled blood pressure. Completely denies any other focal symptoms. All 14 point review of systems reviewed. Past Medical History Past Medical History: Asthma, Cancer, Chest Pain / Angina, COPD, Hyperlipidemia, Hypertension, Osteoarthritis (OA), Thyroid Disorder Additional Past Medical History / Comment(s): HYPOTHYROID. Hx skin cancer on nose. IBS. Right Eye vision deficit History of Any Multi-Drug Resistant Organisms: None Reported Past Surgical History: Appendectomy, Bladder Surgery, Hysterectomy, Joint Rep lacement, Orthopedic Surgery, Tonsillectomy Additional Past Surgical History / Comment(s): FACIAL SURGERY/RECONSTRUCTION POST INJURY. BILATERAL CATARACTS. Left shoulder replacement, bilateral shoulder surgery. Skin cancer on nose removed. Past Anesthesia/Blood Transfusion Reactions: Postoperative Nausea & Vomiting (PONV) Past Psychological History: No Psychological Hx Reported Additional Psychological History / Comment(s): Pt resides with her spouse who has a CHI. 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 She is independent. Smoking Status: Former smoker Past Alcohol Use History: None Reported Additional Past Alcohol Use History / Comment(s): Pt started smoking in 1962 nd quit in 1992. Past Drug Use History: None Reported - Past Family History Mother Family Medical History: No Reported History Father Family Medical History: Liver Disease Additional Family Medical History / Comment(s): Father was an alcoholic. He had liver cirrhosis. Medications and Allergies Home Medications Medication Instructions Recorded Confirmed Type Fluticasone/Salmeterol [Advair Hfa 2 puff INHALATION RT-BID 09/14/13 07/27/19 History 115-21 Mcg Inhaler] Levothyroxine Sodium [Synthroid] 137 mcg PO QAM 09/14/13 07/27/19 History Montelukast [Singulair] 10 mg PO HS 09/14/13 07/27/19 History cycloSPORINE [Restasis] 1 drop BOTH EYES BID 09/14/13 07/27/19 History Cholecalciferol [Vitamin D3 (25 1,000 unit PO DAILY 09/16/17 07/27/19 History Mcg = 1000 Iu)] Multivitamins, Thera [Multivitamin 1 tab PO DAILY 09/16/17 07/27/19 History (formulary)] Albuterol Inhaler [Ventolin Hfa 1 - 2 puff INHALATION RT-Q6H PRN 05/07/18 07/27/19 History Inhaler] Nitroglycerin Sl Tabs [Nitrostat] 0.4 mg SUBLINGUAL Q5M PRN 05/07/18 07/27/19 History Dicyclomine [Bentyl] 20 mg PO QID PRN 06/28/18 07/27/19 History Atorvastatin [Lipitor] 20 mg PO HS #30 tab 06/29/18 07/27/19 Rx Isosorbide Mononitrate ER [Imdur] 30 mg PO QAM 09/07/18 07/27/19 History Metoprolol Tartrate [Lopressor] 12.5 mg PO BID 09/07/18 07/27/19 History Aspirin [Adult Low Dose Aspirin EC] 81 mg PO DAILY #1 tablet. 09/15/18 07/27/19 Rx ALPRAZolam [Xanax] 0.25 mg PO DAILY PRN 07/27/19 07/27/19 History Losartan [Cozaar] 25 mg PO HS 07/27/19 07/27/19 History Allergies Allergy/AdvReac Type Severity Reaction Status Date / Time ciprofloxacin [From Cipro] Allergy Unknown Verified 07/27/19 16:43 hydrocodone bitartrate Allergy Anaphylaxis Verified 07/27/19 16:43 [From Vicodin] levofloxacin [From Levaquin] Allergy Unknown Verified 07/27/19 16:43 Physical Examination - Vital Signs Vital Signs: Vital Signs Temp Pulse Pulse Resp BP BP Pulse Ox 07/28/19 11:28 72 07/28/19 11:15 72 07/28/19 08:00 97.7 F 88 16 177/74 95 07/28/19 04:00 98.3 F 85 18 144/65 97 07/28/19 00:00 98 F 93 18 152/77 97 07/27/19 21:27 98 F 98 07/27/19 20:48 66 18 160/70 99 07/27/19 18:26 97.2 F L 71 18 159/79 95 07/27/19 16:26 80 18 147/74 98 07/27/19 16:17 98.1 F 87 18 184/85 96 Intake and Output 07/27/19 07/28/19 07/28/19 22:59 06:59 14:59 Intake Total 500 240 Balance 500 240 Intake: Oral 500 240 Other: Voiding Method Toilet Incontinent # Voids 1 2 Weight 83.915 kg 84.8 kg On examination patient is an elderly female, very pleasant in no acute distress. Patient is alert and awake oriented to time place and person. Speech and language functions are normal. Attention and concentration fund of knowledge is adequate. On cranial examination pupils are round and reactive to light. Patient has right APD. Visual le are full on confrontation on the left eye. On the right eye patient has no vision, only sees some shadow laterally. Face is symmetric and tongue protrudes the midline. Palate elevates sensation normal on muscle strength testing there is no pronator drift and the strength is normal in arms and legs with flexor 1+ and plantars downgoing sensory to touch is equal. No ataxia for [id number] testing. Tone and bulk of muscles normal. No carotid bruit or murmur. Peripheral pulses present. Results - Laboratory Findings CBC and BMP: 07/28/19 05:19 07/28/19 05:19 Abnormal Lab Findings: Abnormal Labs 07/28/19 07/28/19 05:19 05:19 Chloride 108 H Creatinine 0.48 L HDL Cholesterol 62 H Assessment and Plan Assessment: * Acute right central retinal artery occlusion. Possible due to small vessel disease. Temporal arteritis is unlikely with lack of headache and normal CRP. * Hypertension * Multiple cerebral aneurysms, asymptomatic at this time * Hyperlipidemia, controlled * X tobacco use Plan: * Patient has presented with acute right central retinal artery occlusion. CTA of head and neck showed no occlusive disease on the right side. In fact patient has moderate stenosis involving the left common carotid artery, which is asymptomatic at this time. * We will check MRI of the brain to evaluate for an acute stroke. * Patient was on aspirin 81 mg daily, indicating failure of aspirin. We will switch to Plavix 75 mg daily. * Optimize treatment of blood pressure, as due to presence of multiple cerebral aneurysm, would avoid significantly elevated blood pressure. * Patient also has been diagnosed with asymptomatic multiple cerebral aneurysms. Case has already been discussed with vascular neurology Dr. Meyer by the ED staff, who recommended patient to be followed up in his office as outpatient. Patient may need cerebral angiogram and possible endovascular treatment of these aneurysms. * We will check ESR.
--- NOTE | 2019-07-28 16:24 | P.HPIM ---
History of Present Illness H&P Date: 07/28/19 Chief Complaint: Blurred vision right eye This is a 74-year-old female with past medical history of COPD, hypertension, hyperlipidemia, anemia, total left knee arthroplasty, presenting to ER yesterday with complaints of partial right eye blurriness. Patient reports symptoms initiated this morning after arising, doing dishes and noticed partial blurring in her right lateral field. Denies eye pain. Denied facial droop, slurred speech.Denied lightheadedness, dizziness or focal deficits. By the time she presented to the ER, her right eye vision was completely "black". Denies issues with left eye vision. Denied nausea vomiting or diarrhea. Patient was referred to [facility], , diagnosed with right central retinal artery occlusion. Patient was referred back to the ER for admission, neuro workup and anticoagulation. Denies chest pain, palpitations or shortness of breath. Currently reports mild headache. EKG reported normal sinus rhythm. Brain CT reported no acute intracranial hemorrhage or midline shift, mild to moderate chronic small vessel ischemia, old frontal lobe infarct, possible small aneurysm near level of anterior communicating artery. Chest x-ray reported non acute. CTA confirmed 5 mm saccular aneurysm of the anterior communicating artery, 4 mm saccular aneurysm at the trifurcation of the left MCA and 3 mm fusiform aneurysm at the trifurcation of the right MCA, no greater than 50% stenosis of the major intracranial vasculature of the head or neck, 50% multifocal stenosis. Echo pending. Total cholesterol 176, LDL 87, HDL 62, triglycerides 134. Hemoglobin A1c is 5.6. Thyroid functions within normal limits. UA negative. Review of Systems ROS Statement: Those systems with pertinent positive or pertinent negative responses have been documented in the HPI. ROS Other: All systems not noted in ROS Statement are negative. Past Medical History Past Medical History: Asthma, Cancer, Chest Pain / Angina, COPD, Hyperlipidemia, Hypertension, Osteoarthritis (OA), Thyroid Disorder Additional Past Medical History / Comment(s): HYPOTHYROID. Hx skin cancer on nose. IBS. Right Eye vision deficit History of Any Multi-Drug Resistant Organisms: None Reported Past Surgical History: Appendectomy, Bladder Surgery, Hysterectomy, Joint Repl acement, Orthopedic Surgery, Tonsillectomy Additional Past Surgical History / Comment(s): FACIAL SURGERY/RECONSTRUCTION POST INJURY. BILATERAL CATARACTS. Left shoulder replacement, bilateral shoulder surgery. Skin cancer on nose removed. Past Anesthesia/Blood Transfusion Reactions: Postoperative Nausea & Vomiting (PONV) Past Psychological History: No Psychological Hx Reported Additional Psychological History / Comment(s): Pt resides with her spouse who has a CHI. 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 She is independent. Smoking Status: Former smoker Past Alcohol Use History: None Reported Additional Past Alcohol Use History / Comment(s): Pt started smoking in 1962 nd quit in 1992. Past Drug Use History: None Reported - Past Family History Mother Family Medical History: No Reported History Father Family Medical History: Liver Disease Additional Family Medical History / Comment(s): Father was an alcoholic. He had liver cirrhosis. Medications and Allergies Home Medications Medication Instructions Recorded Confirmed Type Fluticasone/Salmeterol [Advair Hfa 2 puff INHALATION RT-BID 09/14/13 07/27/19 History 115-21 Mcg Inhaler] Levothyroxine Sodium [Synthroid] 137 mcg PO QAM 09/14/13 07/27/19 History Montelukast [Singulair] 10 mg PO HS 09/14/13 07/27/19 History cycloSPORINE [Restasis] 1 drop BOTH EYES BID 09/14/13 07/27/19 History Cholecalciferol [Vitamin D3 (25 1,000 unit PO DAILY 09/16/17 07/27/19 History Mcg = 1000 Iu)] Multivitamins, Thera [Multivitamin 1 tab PO DAILY 09/16/17 07/27/19 History (formulary)] Albuterol Inhaler [Ventolin Hfa 1 - 2 puff INHALATION RT-Q6H PRN 05/07/18 07/27/19 History Inhaler] Nitroglycerin Sl Tabs [Nitrostat] 0.4 mg SUBLINGUAL Q5M PRN 05/07/18 07/27/19 History Dicyclomine [Bentyl] 20 mg PO QID PRN 06/28/18 07/27/19 History Atorvastatin [Lipitor] 20 mg PO HS #30 tab 06/29/18 07/27/19 Rx Isosorbide Mononitrate ER [Imdur] 30 mg PO QAM 09/07/18 07/27/19 History Metoprolol Tartrate [Lopressor] 12.5 mg PO BID 09/07/18 07/27/19 History Aspirin [Adult Low Dose Aspirin EC] 81 mg PO DAILY #1 tablet. 09/15/18 07/27/19 Rx ALPRAZolam [Xanax] 0.25 mg PO DAILY PRN 07/27/19 07/27/19 History Losartan [Cozaar] 25 mg PO HS 07/27/19 07/27/19 History Allergies Allergy/AdvReac Type Severity Reaction Status Date / Time ciprofloxacin [From Cipro] Allergy Unknown Verified 07/27/19 16:43 hydrocodone bitartrate Allergy Anaphylaxis Verified 07/27/19 16:43 [From Vicodin] levofloxacin [From Levaquin] Allergy Unknown Verified 07/27/19 16:43 Physical Exam Vitals: Vital Signs Temp Pulse Pulse Resp BP BP Pulse Ox 07/28/19 04:00 98.3 F 85 18 144/65 97 07/28/19 00:00 98 F 93 18 152/77 97 07/27/19 21:27 98 F 98 07/27/19 20:48 66 18 160/70 99 07/27/19 18:26 97.2 F L 71 18 159/79 95 07/27/19 16:26 80 18 147/74 98 07/27/19 16:17 98.1 F 87 18 184/85 96 Intake and Output 07/27/19 07/28/19 07/28/19 22:59 06:59 14:59 Intake Total 500 Balance 500 Intake: Oral 500 Other: Voiding Method Toilet Incontinent # Voids 1 2 Weight 83.915 kg 84.8 kg VITAL SIGNS: As above GENERAL: Sitting up in bed, no acute distress, HEENT: Conjunctivae pale. eyes normal. Oral mucosa moist NECK: No JVD. No thyroid enlargement. No LNs CARDIOVASCULAR: S1, S2 regular. No murmur RESPIRATION: Breath sounds diminished in the bases. No rhonchi or crackles. No bronchial breathing. ABDOMEN: Soft, nontender . No guarding. no masses palpable. Bowel sounds heard. LEGS: Mild baseline pedal edema, positive DP pulses PSYCHIATRY: Alert and oriented -3, mood and affect normal. NERVOUS SYSTEM: Face symmetrical, Speech fluent, appropriate .tongue midline .Right eye, reports no vision-only sees black with some lateral shadows , no b linking response at approaching objects. No deficit noted with left eye No focal deficits. No sensory deficit. Bilateral upper and lower extremities motor strength /sensation grossly intact. Skin: no rash Results CBC & Chem 7: 07/28/19 05:19 07/28/19 05:19 Labs: Abnormal Lab Results - Last 24 Hours (Table) 07/28/19 Range/Units 05:19 HDL Cholesterol 62 H (40-60) mg/dL Thrombosis Risk Factor Assmnt - Choose All That Apply Each Factor Represents 1 point: Abnormal pulmonary function (COPD), Hx of IBD, Swollen legs (current) Each Risk Factor Represents 3 Points: Age 75 years or older Each Risk Factor Represents 5 Points: Stroke (< 1 month) Thrombosis Risk Factor Assessment Total Risk Factor Score: 11 Thrombosis Risk Factor Assessment Level: High Risk Assessment and Plan Assessment: Acute right central retinal artery occlusion, rule out acute CVA, neuro workup in progress. 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 Maintain Statin, ASA-possibly change as patient was already on this at home when event occurred. Neurology consulted with further recommendations noted. Given aneurysms, antihypertensives resumed. Echo/MRI pending.Home meds have been reviewed and resumed accordingly. PT/OT consulted. Diagnosis/Plan of care discussed at bedside with patient, who verbalized understanding of and agreement with. Prognosis guarded given multiple complex medical issues. Discharge planning in progress possibly for tomorrow pending completion of neuro workup, neurology clearance, DC recommendations. The impression and plan of care has been dictated as directed. : I performed a history and examination of this patient, discussed the same with the dictator. I agree with the dictator's note ,documented as a scribe. Any additional findings or plans will be noted.
--- NOTE | 2019-07-28 16:32 | MR ---
MRI brain without contrast HISTORY: Right eye vision loss, cerebral vascular accident Multiplanar multisequence imaging of the brain Correlation to CT brain and CTA head and neck dated 07/27/2019 The prominence noted on CT within the internal carotid artery at the level [place] on the le ft shows corresponding signal void consistent with aneurysm near the level of origin of left A1 segme nt. Right middle cerebral artery shows aneurysm as does the left and noted on prior CTA. There is no restricted diffusion to suggest subacute ischemia. Encephalomalacia noted in the right frontal lobe m edially shows associated gliosis, hyperenhancing T1 and T2-weighted sequences. The corpus callosum, p ituitary, cervical medullary junction, cerebellopontine angles are unremarkable. There is no hemorrha ge or hydrocephalus. Periventricular confluent and scattered hyperintensities are present on inversio n recovery T2-weighted sequences most likely due to chronic small vessel ischemic change. Cortical at rophy is again noted. Juxtacortical hyperintensity towards the convexity on inversion recovery T2-fausto ghted sequences in the right parietal lobe. IMPRESSION: No acute abnormality. Aneurysms have been detailed in prior report. Nonspecific white mat ter demyelination may be due to chronic small vessel ischemic change. Age-related atrophy.
[2019-07-28] MEDS ORDERED: SYMBICORT 160-4.5 MCG INHALER INHALATION SCH (20:00)
[2019-07-28] MEDS ORDERED: ATORVASTATIN 20 MG TAB PO SCH (21:00)
[2019-07-28] MEDS ORDERED: LOSARTAN 25 MG TAB PO SCH (21:00)
[2019-07-28] MEDS ORDERED: MONTELUKAST 10 MG TAB PO SCH (21:00)
[2019-07-28] MEDS: cycloSPORINE 0.05% OPHTH 0.4 ML DROPERETTE BOTH EYES SCH (21:28)
[2019-07-29] MEDS: SODIUM CHLORIDE 0.9% 1,000 ML IV SCH (03:47)
[2019-07-29] MEDS: LEVOTHYROXINE 137 MCG TAB PO SCH (05:52)
[2019-07-29] MEDS: SYMBICORT 160-4.5 MCG INHALER INHALATION SCH (08:56)
[2019-07-29] MEDS ORDERED: CHOLECALCIFEROL 1,000 UNIT TAB PO SCH (09:00)
[2019-07-29] MEDS ORDERED: MULTIVITAMINS, THERA 1 EACH TAB PO SCH (09:00)
[2019-07-29] MEDS: ASPIRIN 325 MG TAB PO SCH (09:37)
[2019-07-29] MEDS: METOPROLOL TARTRATE 12.5 MG TAB PO SCH (09:37)
[2019-07-29] MEDS: ATORVASTATIN 40 MG TAB PO SCH (09:38)
[2019-07-29] MEDS: ISOSORBIDE MONONITRATE ER 30 MG TAB.ER.24H PO SCH (09:38)
[2019-07-29 09:48] VITALS: RESP 16; TEMP 97.2
--- NOTE | 2019-07-29 10:32 | P.DS ---
Providers Date of admission: 07/27/19 16:24 Expected date of discharge: 07/29/19 Attending physician: Rinku Penaloza Consults: 07/27/19 16:25 Consult Physician Urgent Consulting Provider: Tommy Webber Consult Reason/Comments: Stroke evaluation, central retinal artery occlusion Do you want consulting provider notified?: Yes Primary care physician: Rinku Penaloza [facility] Course: Final Diagnoses: Acute right central retinal artery occlusion, rule out acute CVA, neuro workup in progress. 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 Patient reports symptoms initiated this morning after arising, doing dishes and noticed partial blurring in her right lateral field. Denies eye pain. Denied facial dr oop, slurred speech.Denied lightheadedness, dizziness or focal deficits. By the time she presented to the ER, her right eye vision was completely "black". Denies issues with left eye vision. Denied nausea vomiting or diarrhea. Patient was referred to [facility], , diagnosed with right central retinal artery occlusion. Patient was referred back to the ER for admission, neuro workup and anticoagulation. Denies chest pain, palpitations or shortness of breath. Currently reports mild headache. EKG reported normal sinus rhythm. Brain CT reported no acute intracranial hemorrhage or midline shift, mild to moderate chronic small vessel ischemia, old frontal lobe infarct, possible small aneurysm near level of anterior communicating artery. Chest x- ray reported non acute. CTA confirmed 5 mm saccular aneurysm of the anterior communicating artery, 4 mm saccular aneurysm at the trifurcation of the left MCA and 3 mm fusiform aneurysm at the trifurcation of the right MCA, no greater than 50% stenosis of the major intracranial vasculature of the head or neck, 50% multifocal stenosis. Echo pending. Total cholesterol 176, LDL 87, HDL 62, triglycerides 134. Hemoglobin A1c is 5.6. Thyroid functions within normal limits. UA negative. Headache has subsided. Reports right eye vision unchanged. Discussed plan of care , statin, antihypertensives and anticoagulation in addition to follow-up visits. Patient will be discharged home today pending neurology final DC recommendations including anticoagulation, clearance, in a stable condition with guarded prognosis. The impression and plan of care has been dictated as directed. : I performed a history and examination of this patient, discussed the same with the dictator. I agree with the dictator's note ,documented as a scribe. Any additional findings or plans will be noted. Patient Condition at Discharge: Stable Plan - Discharge Summary Discharge Rx Participant: Yes New Discharge Prescriptions: New Atorvastatin [Lipitor] 40 mg PO DAILY #30 tab Clopidogrel Bisulfate [Plavix] 75 mg PO DAILY #30 tab Continue Levothyroxine Sodium [Synthroid] 137 mcg PO QAM Montelukast [Singulair] 10 mg PO HS cycloSPORINE [Restasis] 1 drop BOTH EYES BID Fluticasone/Salmeterol [Advair Hfa 115-21 Mcg Inhaler] 2 puff INHALATION RT- BID Multivitamins, Thera [Multivitamin (formulary)] 1 tab PO DAILY Cholecalciferol [Vitamin D3 (25 Mcg = 1000 Iu)] 1,000 unit PO DAILY Nitroglycerin Sl Tabs [Nitrostat] 0.4 mg SUBLINGUAL Q5M PRN PRN Reason: Chest Pain Albuterol Inhaler [Ventolin Hfa Inhaler] 1 - 2 puff INHALATION RT-Q6H PRN PRN Reason: Shortness Of Breath Dicyclomine [Bentyl] 20 mg PO QID PRN PRN Reason: IBS Isosorbide Mononitrate ER [Imdur] 30 mg PO QAM Metoprolol Tartrate [Lopressor] 12.5 mg PO BID ALPRAZolam [Xanax] 0.25 mg PO DAILY PRN PRN Reason: Anxiety Losartan [Cozaar] 25 mg PO HS Discharge Medication List Fluticasone/Salmeterol [Advair Hfa 115-21 Mcg Inhaler] 2 puff INHALATION RT-BID 09/14/13 [History] Levothyroxine Sodium [Synthroid] 137 mcg PO QAM 09/14/13 [History] Montelukast [Singulair] 10 mg PO HS 09/14/13 [History] cycloSPORINE [Restasis] 1 drop BOTH EYES BID 09/14/13 [History] Cholecalciferol [Vitamin D3 (25 Mcg = 1000 Iu)] 1,000 unit PO DAILY 09/16/17 [History] Multivitamins, Thera [Multivitamin (formulary)] 1 tab PO DAILY 09/16/17 [History] Albuterol Inhaler [Ventolin Hfa Inhaler] 1 - 2 puff INHALATION RT-Q6H PRN 05/07/18 [History] Nitroglycerin Sl Tabs [Nitrostat] 0.4 mg SUBLINGUAL Q5M PRN 05/07/18 [History] Dicyclomine [Bentyl] 20 mg PO QID PRN 06/28/18 [History] Isosorbide Mononitrate ER [Imdur] 30 mg PO QAM 09/07/18 [History] Metoprolol Tartrate [Lopressor] 12.5 mg PO BID 09/07/18 [History] ALPRAZolam [Xanax] 0.25 mg PO DAILY PRN 07/27/19 [History] Losartan [Cozaar] 25 mg PO HS 07/27/19 [History] Atorvastatin [Lipitor] 40 mg PO DAILY #30 tab 07/29/19 [Rx] Clopidogrel Bisulfate [Plavix] 75 mg PO DAILY #30 tab 07/29/19 [Rx] Follow up Appointment(s)/Referral(s): Wes Tavarez MD [STAFF PHYSICIAN] - 1 Week (re f/u for multiple cerebral aneursyms) Rinku Penaloza DO [Primary Care Provider] - 08/04/19 11:40 am Merrick Dawn MD [REFERRING] - 6 Weeks (As previously scheduled) Patient Instructions/Handouts: Transient Ischemic Attack (DC) Activity/Diet/Wound Care/Special Instructions: Pending Neurology final dc rec /including anticoagulation clarification, clearance
[2019-07-29] MEDS: cycloSPORINE 0.05% OPHTH 0.4 ML DROPERETTE BOTH EYES SCH (12:00)
[2019-07-29 12:07] VITALS: BP 157/74; PULSE 62
--- NOTE | 2019-07-29 14:55 | P.PN ---
Subjective Progress Note Date: 07/29/19 Patient denies any new neurological symptoms. Patient states her right eye seems to be stable, although she has a slight area of some light and shadow she can see involving the right upper lateral visual field. Denies any new focal symptoms. The headache is resolved. Objective - Vital Signs Vital signs: Vital Signs Temp 97.2 F L 07/29/19 08:00 Pulse 62 07/29/19 12:00 Resp 16 07/29/19 12:00 BP 157/74 07/29/19 12:00 Pulse Ox 96 07/29/19 12:00 Intake & Output 07/28/19 07/29/19 07/29/19 18:59 06:59 18:59 Intake Total 600 600 Output Total 1200 800 Balance 600 -1200 -200 Weight 84.6 kg Intake: Oral 600 600 Output: Urine 1200 800 Other: Voiding Method Toilet # Voids 3 2 2 - Exam Continues with no vision in the right eye. Right APD. Rest of the examination nonfocal. - Labs CBC & Chem 7: 07/28/19 05:19 07/28/19 05:19 Assessment and Plan Assessment: * Acute central retinal artery occlusion, right eye. Possible due to small vessel disease. Temporal arteritis is unlikely with lack of headache and normal CRP. * Hypertension * Multiple cerebral aneurysms, asymptomatic at this time * Hyperlipidemia, controlled * X tobacco use Plan: * Patient has presented with acute right central retinal artery occlusion. CTA of head and neck showed no occlusive disease on the right side. In fact patient has moderate stenosis involving the left common carotid artery, which is asymptomatic at this time. * MRI of the brain showed no acute stroke. Small vessel disease was seen. * Continue Plavix 75 mg daily. DC aspirin. Avoid dual antiplatelet medication because of presence of cerebral aneurysm. * Optimize treatment of blood pressure, as due to presence of multiple cerebral aneurysm, would avoid significantly elevated blood pressure. * Patient also has been diagnosed with asymptomatic multiple cerebral aneurysms. Case has already been discussed with vascular neurology Dr. Meyer by the ED staff, who recommended patient to be followed up in his office as outpatient. Patient may need cerebral angiogram and possible endovascular treatment of these aneurysms. * ESR 11. * Neurologically clear for discharge.
--- NOTE | 2019-08-02 11:28 | CDI ---
Documentation Clarification Form Date: 08/02/19 From: Deedee Browne CCS Phone: If you have a question about this query, please contact Gilma Salamanca, [employer] at [phone] between 8am and 5pm. Admit Date: 07/27/19 Discharge Date:07/29/19 Patient Name: Amy Garcia Visit Number: [id number] ATTENTION: The Clinical Documentation Specialists (CDI) and [facility] Coding Staff appreciate your assistance in clarifying documentation. Please respond to the clarification below the line at the bottom and electronically sign. The CDI & [facility] Coding staff will review the response and follow-up if needed. Please note: Queries are made part of the Legal Health Record. If you have any questions, please contact the author of this message via ITS. Dear Dr. Penaloza, Rule out CVA is documented as a diagnosis in the H&P, DS. History/risk factors: Retinal artery occl, Cerebral aneurysm, Carotid stenosis Clinical Indicators: Acute right central artery occlusion MRI/MRA: : No acute abnormality.Aneurysms have been detailed in prior report. Nonspecific white matter demyelination may be due to chronic small vessel ischemic change.Age-related atrophy. Consult: Hasan- MRI of the brain showed no acute stroke.Small vessel disease was seen. Treatment: Plavix 758 mg PO ONCE STA In your professional opinion, please clarify each of the following: Cause of Stroke/CVA: CVA ruled out Stenosis/Occlusion Embolic Thrombolytic Hypertension Other (please specify) Unable to Determine Laterality: Left Right Bilateral Other (please specify) Unable to Determine Vessel/Location Involved: Anterior Cerebral Artery Cerebellar Middle Cerebral Artery Posterior Cerebral Artery Precerebral Artery: Carotid Basilar Auditory, internal Vertebral Other (please specify) Unable to Determine acute ocular CVA due to retinal artery occlusion. MTDD
== END 2019-07-29 14:46 | disposition home or self-care (01) | DRG 123 ==
LOC: EC 16:15 → 3SCARD 16:24
PROVIDERS: ADMIT Family Medicine; ATTEND Family Medicine
DX: H34.11 Central retinal artery occlusion, right eye (principal); I67.1 Cerebral aneurysm, nonruptured; H54.61 Unqualified visual loss, right eye, normal vision left eye; M19.90 Unspecified osteoarthritis, unspecified site; J44.9 Chronic obstructive pulmonary disease, unspecified; I10 Essential (primary) hypertension; E78.5 Hyperlipidemia, unspecified; E03.9 Hypothyroidism, unspecified; K58.9 Irritable bowel syndrome, unspecified; I65.22 Occlusion and stenosis of left carotid artery; R32 Unspecified urinary incontinence; Z79.51 Long term (current) use of inhaled steroids; Z79.890 Hormone replacement therapy; Z79.82 Long term (current) use of aspirin; Z96.652 Presence of left artificial knee joint; Z86.73 Personal history of transient ischemic attack (TIA), and cerebral infarction without residual deficits; Z79.899 Other long term (current) drug therapy; Z85.828 Personal history of other malignant neoplasm of skin; Z90.710 Acquired absence of both cervix and uterus; Z90.49 Acquired absence of other specified parts of digestive tract; Z98.890 Other specified postprocedural states; Z98.42 Cataract extraction status, left eye; Z98.41 Cataract extraction status, right eye; Z96.612 Presence of left artificial shoulder joint; Z87.891 Personal history of nicotine dependence; Z88.1 Allergy status to other antibiotic agents; Z88.5 Allergy status to narcotic agent; Z81.1 Family history of alcohol abuse and dependence; Z83.79 Family history of other diseases of the digestive system
CPT/HCPCS: 70551; 80053; 80061; 85025; 85652; 86140; 93306; 94640; 99284

== ENCOUNTER 2019-10-08 17:16 | Emergency (ER) | payer MEDICARE ==
[2019-10-08 17:27] VITALS: RESP 18; TEMP 97.9
[2019-10-08] MEDS ORDERED: FAMOTIDINE 20 MG/2 ML VIAL IV STA (17:36)
[2019-10-08] MEDS ORDERED: diphenhydrAMINE 50 MG/ML 1 ML VIAL IVP STA (17:36)
[2019-10-08] MEDS ORDERED: methylPREDNISolone SOD SUCCI 125 MG/2 ML VIAL IV STA (17:36)
--- NOTE | 2019-10-08 17:40 | ED ---
Allergic Reaction HPI - General Chief complaint: Allergic Reaction Stated complaint: Allergic Reaction Time Seen by Provider: 10/08/19 17:31 Source: patient, RN notes reviewed, old records reviewed Mode of arrival: ambulatory Limitations: no limitations - History of Present Illness Initial Comments: Patient is a 74-year-old female who presents emergency department today with a complaint of ALLERGIC reaction likely to IV contrast. She had a CT angiogram of the head to assess for history of cerebral aneurysms to [facility] yesterday. Patient reports that after the CT in the evening time she started noticed a red rash over her chest and back. Patient denies nausea or vomiting. Patient denies difficulty in swallowing. She does complain of some mild shortness of breath and feels that she is clearing her throat. She's never had previous reactions to contrast. Patient has been taking Benadryl throughout the day today. - Related Data Home Medications Medication Instructions Recorded Confirmed Fluticasone/Salmeterol [Advair Hfa 2 puff INHALATION RT-BID 09/14/13 07/27/19 115-21 Mcg Inhaler] Levothyroxine Sodium [Synthroid] 137 mcg PO QAM 09/14/13 07/27/19 Montelukast [Singulair] 10 mg PO HS 09/14/13 07/27/19 cycloSPORINE [Restasis] 1 drop BOTH EYES BID 09/14/13 07/27/19 Cholecalciferol [Vitamin D3 (25 1,000 unit PO DAILY 09/16/17 07/27/19 Mcg = 1000 Iu)] Multivitamins, Thera [Multivitamin 1 tab PO DAILY 09/16/17 07/27/19 (formulary)] Albuterol Inhaler (Mhu) [Ventolin 1 - 2 puff INHALATION RT-Q6H PRN 05/07/18 07/27/19 Hfa Inhaler (Mhu)] Nitroglycerin Sl Tabs [Nitrostat] 0.4 mg SUBLINGUAL Q5M PRN 05/07/18 07/27/19 Dicyclomine [Bentyl] 20 mg PO QID PRN 06/28/18 07/27/19 Isosorbide Mononitrate ER [Imdur] 30 mg PO QAM 09/07/18 07/27/19 Metoprolol Tartrate [Lopressor] 12.5 mg PO BID 09/07/18 07/27/19 ALPRAZolam [Xanax] 0.25 mg PO DAILY PRN 07/27/19 07/27/19 Losartan [Cozaar] 25 mg PO HS 07/27/19 07/27/19 Previous Rx's Medication Instructions Recorded Atorvastatin [Lipitor] 40 mg PO DAILY #30 tab 07/29/19 Clopidogrel Bisulfate [Plavix] 75 mg PO DAILY #30 tab 07/29/19 Famotidine [Pepcid] 20 mg PO BID #20 tablet 10/08/19 diphenhydrAMINE [Benadryl] 25 mg PO TID PRN #30 capsule 10/08/19 predniSONE [Deltasone] 20 mg PO BID #6 tab 10/08/19 Allergies Allergy/AdvReac Type Severity Reaction Status Date / Time ciprofloxacin [From Cipro] Allergy Unknown Verified 10/08/19 17:27 hydrocodone bitartrate Allergy Anaphylaxis Verified 10/08/19 17:27 [From Vicodin] levofloxacin [From Levaquin] Allergy Unknown Verified 10/08/19 17:27 Review of Systems ROS Statement: Those systems with pertinent positive or pertinent negative responses have been documented in the HPI. ROS Other: All systems not noted in ROS Statement are negative. Past Medical History Past Medical History: Asthma, Cancer, Chest Pain / Angina, COPD, Hyperlipidemia, Hypertension, Osteoarthritis (OA), Thyroid Disorder Additional Past Medical History / Comment(s): HYPOTHYROID. Hx skin cancer on nose. IBS. Right Eye vision deficit. 3 brain aneurysms. History of Any Multi-Drug Resistant Organisms: None Reported Past Surgical History: Appendectomy, Bladder Surgery, Hysterectomy, Joint Replacement, Orthopedic Surgery, Tonsillectomy Additional Past Surgical History / Comment(s): FACIAL SURGERY/RECONSTRUCTION POST INJURY. BILATERAL CATARACTS. Left shoulder replacement, bilateral shoulder surgery. Skin cancer on nose removed. Past Anesthesia/Blood Transfusion Reactions: Postoperative Nausea & Vomiting (PONV) Past Psychological History: No Psychological Hx Reported Smoking Status: Former smoker Past Alcohol Use History: None Reported Past Drug Use History: None Reported - Past Family History Mother Family Medical History: No Reported History Father Family Medical History: Liver Disease Additional Family Medical History / Comment(s): Father was an alcoholic. He had liver cirrhosis. General Exam - General Exam Comments Initial Comments: This is a 74-year-old female. Alert and oriented 3. Limitations: no limitations General appearance: alert, in no apparent distress Head exam: Present: atraumatic, normocephalic, normal inspection, other (Patient has flushed red cheeks.) Eye exam: Present: normal appearance, PERRL, EOMI. Absent: scleral icterus, conjunctival injection, periorbital swelling ENT exam: Present: normal exam, mucous membranes moist Neck exam: Present: normal inspection. Absent: tenderness, meningismus, lymphadenopathy Respiratory exam: Present: normal lung sounds bilaterally. Absent: respiratory distress, wheezes, rales, rhonchi, stridor Cardiovascular Exam: Present: regular rate, normal rhythm, normal heart sounds. Absent: systolic murmur, diastolic murmur, rubs, gallop, clicks GI/Abdominal exam: Present: soft, normal bowel sounds. Absent: distended, tenderness, guarding, rebound, rigid Extremities exam: Present: normal inspection, full ROM, normal capillary refill. Absent: tenderness, pedal edema, joint swelling, calf tenderness Back exam: Present: normal inspection Neurological exam: Present: alert, oriented X3, CN II-XII intact Psychiatric exam: Present: normal affect, normal mood Skin exam: Present: warm, dry, intact, normal color, rash (And has erythematous urticaria over back chest and abdomen.) Course Vital Signs 10/08/19 10/08/19 17:20 18:43 Temperature 97.9 F Pulse Rate 80 82 Respiratory 18 18 Rate Blood Pressure 184/79 141/58 O2 Sat by Pulse 96 98 Oximetry Medical Decision Making - Medical Decision Making 34-year-old female presents emergency room today with complaint of ALLERGIC reaction to IV contrast. Patient appears flushed, erythematous macular rash over chest and back consistent with hives as well. I advised the Patient to avoid any hot baths or showers. She is given IV Solu-Medrol Benadryl and Pepcid. She does have slight improvement at this time. I discussed the Patient needs to continue steroids and Pepcid and Benadryl for the next few days. I discussed Patient have close follow-up with primary care physician. is no lesions around the mouth, in no signs of blistering. Tongue is normal no signs of respiratory distress. Lungs are clear. Patient is agreeable treatment plan will comply. Disposition Clinical Impression: Allergic reaction Disposition: HOME SELF-CARE Condition: Good Instructions (If sedation given, give patient instructions): Urticaria (ED) Additional Instructions: Please use medication as discussed. avoid hot showers and baths.. Please follow up with family doctor if symptoms have not improved over the next two days. Please return to the emergency room if your symptoms increase or worsen or for any other concerns. Prescriptions: diphenhydrAMINE [Benadryl] 25 mg PO TID PRN #30 capsule PRN Reason: Itching predniSONE [Deltasone] 20 mg PO BID #6 tab Famotidine [Pepcid] 20 mg PO BID #20 tablet Is patient prescribed a controlled substance at d/c from ED?: No Referrals: Rinku Penaloza DO [Primary Care Provider] - 1-2 days Time of Disposition: 18:57
[2019-10-08 18:44] VITALS: BP 141/58; PULSE 82
== END 2019-10-08 19:05 | disposition home or self-care (01) ==
LOC: EC 17:16
DX: R21 Rash and other nonspecific skin eruption (principal); R06.02 Shortness of breath; T50.8X5A Adverse effect of diagnostic agents, initial encounter; J44.9 Chronic obstructive pulmonary disease, unspecified; I25.2 Old myocardial infarction; I10 Essential (primary) hypertension; M19.90 Unspecified osteoarthritis, unspecified site; E03.9 Hypothyroidism, unspecified; Z79.51 Long term (current) use of inhaled steroids; Z79.890 Hormone replacement therapy; Z79.899 Other long term (current) drug therapy; Z88.5 Allergy status to narcotic agent; Z88.1 Allergy status to other antibiotic agents; Z85.828 Personal history of other malignant neoplasm of skin; Z86.79 Personal history of other diseases of the circulatory system; Z96.612 Presence of left artificial shoulder joint; Z98.890 Other specified postprocedural states; Z87.891 Personal history of nicotine dependence
CPT/HCPCS: 99285; 96374; 96375 ×2; J1200; J2930

== ENCOUNTER → 2019-10-21 | Outpatient (CLI) | payer MEDICARE | END | disposition home or self-care (01) | LOC: LABWHC1 12:52 | PROVIDERS: ATTEND Nurse Practitioner Critical Care Medicine | DX: Z11.59 Encounter for screening for other viral diseases (principal) ==

== ENCOUNTER → 2020-04-21 | Outpatient (CLI) | payer MEDICARE ==
--- NOTE | 2020-04-24 11:52 | MM ---
Reason for exam: screening (asymptomatic). Last mammogram was performed 2 years and 8 months ago. History: Patient is postmenopausal and has history of other cancer at age 65. Taking estrogen for 23 years 6 months beginning at age 42. Physical Findings: A clinical breast exam by your physician is recommended on an annual basis and results should be correlated with mammographic findings. MG 3D Screening Mammo W/Cad Bilateral CC and MLO view(s) were taken. Prior study comparison: August 29, 2017, bilateral MG 3d screening mammo w/cad. March 29, 2015, bilateral MG screening mammo w CAD. There are scattered fibroglandular densities. Stable benign calcifications. There is no discrete abnormality. No significant changes when compared with prior studies. ASSESSMENT: Benign, BI-RAD 2 RECOMMENDATION: Routine screening mammogram of both breasts in 1 year.
== END | disposition home or self-care (01) ==
LOC: RADMAMWWP 13:25
PROVIDERS: ATTEND Family Medicine
DX: Z12.31 Encounter for screening mammogram for malignant neoplasm of breast (principal)
CPT/HCPCS: 77063; 77067

== ENCOUNTER 2024-07-29 08:27 | Day surgery (SDC) | payer MEDICARE ==
[2024-07-28 10:59] VITALS: BMI 33.8
[2024-07-29 08:57] VITALS: TEMP 97.8
[2024-07-29] MEDS: LACTATED RINGERS 1,000 ML IV SCH (09:08)
[2024-07-29] MEDS: IV FLUID CONTINUATION 1,000 ML IV ONE (09:15)
[2024-07-29] MEDS: ONDANSETRON 4 MG/2 ML VIAL IVP STA (09:17)
[2024-07-29] MEDS ORDERED: PROPOFOL 10 MG/ML 20 ML VIAL IV ONE (09:19)
--- NOTE | 2024-07-29 09:36 | P.OP ---
Date of Procedure: 07/29/24 Preoperative Diagnosis: Screening Postoperative Diagnosis: Diverticulosis Procedure(s) Performed: Colonoscopy Anesthesia: MAC Surgeon: Bertrand Muller Pathology: none sent Condition: stable Disposition: same day Indications for Procedure: 79-year-old female presents for any colonoscopy. Her last colonoscopy was many years ago. Denies blood in her stool. No family history of colon cancer. Operative Findings: Diverticulosis Description of Procedure: The patient was brought to the endoscopy suite and placed in left lateral decubitus position and adequate sedation was achieved using conscious sedation. Digital rectal exam was performed and mild internal hemorrhoids were palpated. An endoscope was then placed in the rectum and advanced to the cecum as identified by landmarks including the appendiceal orifice and the ileocecal valve. The prep was good. The colonoscope was then slowly withdrawn, examining for any mucosal abnormalities. The cecum, ascending, transverse, descending and sigmoid colon were visualized adequately. There were no large neoplastic lesions noted throughout the colon. No obvious polyps noted throughout the colon. Moderate amount of diverticulosis noted scattered throughout the colon. Hemostasis was maintained. Retroflexion was performed in the rectum and internal hemorrhoids. Excess air was removed, the colonoscope withdrawn and the procedure terminated. The patient was then transferred to the recovery unit in stable condition. Repeat colonoscopy should be performed based on symptoms due to the patient's age
[2024-07-29 09:43] VITALS: RESP 16
[2024-07-29 09:56] VITALS: BP 127/72; PULSE 75
== END 2024-07-29 10:21 | disposition home or self-care (01) ==
LOC: ORWHC2ENDO 08:27
PROVIDERS: ATTEND Surgery
DX: Z12.11 Encounter for screening for malignant neoplasm of colon (principal); K57.30 Diverticulosis of large intestine without perforation or abscess without bleeding
CPT/HCPCS: 45378; J2405; J2704

== ENCOUNTER → 2024-09-07 | Outpatient (CLI) | payer MEDICARE ==
--- NOTE | 2024-09-07 14:13 | MM ---
Reason for Exam: Screening (asymptomatic). Last mammogram was performed 4 year(s) and 4 month(s) ago. Patient History: Menarche at age 13. First Full-Term at age 21. Hysterectomy at age 42. Postmenopausal. Other cancer, age 65. Currently using Estrogen, beginning at age 42 for 23 years, 6 months. Risk Values: Peggy 5 year model risk: 1.5%. NCI Lifetime model risk: 2.8%. Prior Study Comparison: 03/29/2015 Bilateral Screening Mammogram, [facility]. 08/29/2017 Bilateral Screening Mammogram, [facility]. 04/21/2020 Bilateral Screening Mammogram, [facility]. Tissue Density: There are scattered areas of fibroglandular density. Findings: There are a few benign-appearing round and linear calcifications bilaterally. There is no suspicious group of microcalcifications or new suspicious mass in either breast. Overall Assessment: Benign, BI-RAD 2 Management: Screening Mammogram of both breasts in 1 year. . Patient should continue monthly self-breast exams. A clinical breast exam by your physician is recommended on an annual basis. This exam should not preclude additional follow-up of suspicious palpable abnormalities. Note on Peggy scores and lifetime risk: 1. A Peggy score greater than 3% is considered moderate risk. If this is the case, consider specialist referral to assess eligibility for a risk reducing agent. 2. If overall lifetime risk for the development of breast cancer is 20% or higher, the patient may qualify for future screening with alternating mammogram and breast MRI. [facility], , 09/07/2024 2:09 PM. Electronically signed and approved by: Lucas Ramirez M.D.
== END | disposition home or self-care (01) ==
LOC: RADMAMWWP 13:31
PROVIDERS: ATTEND Family Medicine
DX: Z12.31 Encounter for screening mammogram for malignant neoplasm of breast (principal); R92.323 Mammographic fibroglandular density, bilateral breasts; R92.1 Mammographic calcification found on diagnostic imaging of breast; Z78.0 Asymptomatic menopausal state
CPT/HCPCS: 77063; 77067